=== PATIENT | male | born 1930 | race Caucasian/White ===

== ENCOUNTER 2016-08-16 20:37 | Emergency (ER) | payer MEDICARE ==
[2016-08-16 20:37] VITALS: BMI 26.4
[2016-08-16 20:48] VITALS: RESP 18
--- NOTE | 2016-08-16 21:44 | C.PDOC ---
History Of Present Illness Patient was brought to the ED by EMS with complaints of epistaxis that has been on and off with a couple of episodes a month. The patient states he has been cauterized with the last being a week and a half ago. Patient notes having history of a stroke 20 years ago but denies any head trauma or other complaints at this time. Time Seen by Provider: 08/16/16 21:42 Chief Complaint (Nursing): ENT Problem History Per: Patient History/Exam Limitations: None Onset/Duration Of Symptoms: Persistent Current Symptoms Are (Timing): Still Present Symptoms Have Been: Episodic Severity: Mild Pain Scale Rating Of: 3 Anticoagulant/Antiplatlet Use?: No Recent Aspirin Use: Unknown Past Medical History Reviewed: Historical Data, Nursing Documentation, Vital Signs Vital Signs: Last Vital Signs Temp 98.7 F 08/16/16 22:56 Pulse 72 08/16/16 22:56 Resp 18 08/16/16 22:56 BP 176/73 H 08/16/16 22:56 Pulse Ox 99 08/16/16 22:56 - Medical History PMH: Arthritis, Asthma, Back Problems, COPD, CVA, Dementia, Diabetes, Diverticulitis, HTN, Hypercholesterolemia, Kidney Stones (05-11-13), Chronic Kidney Disease, TIA Surgical History: Cholecystectomy - [facility] Procedures REMOV URETERAL DRAIN (06/13/13) URETERAL CATHETERIZATION (05/11/13) Family History: States: Unknown Family Hx, Diabetes - Social History Hx Tobacco Use: No (Former smoker) Hx Alcohol Use: No Hx Substance Use: No - Immunization History Hx Tetanus Toxoid Vaccination: Yes Hx Influenza Vaccination: Yes Hx Pneumococcal Vaccination: Yes Review Of Systems Constitutional: Negative for: Fever, Chills ENT: Positive for: Other (epistaxis). Negative for: Nose Pain Cardiovascular: Negative for: Chest Pain, Palpitations Respiratory: Negative for: Cough, Shortness of Breath Neurological: Negative for: Headache Psych: Positive for: Anxiety Physical Exam - Physical Exam Appears: Non-toxic, No Acute Distress Skin: Warm, Dry Head: Normacephalic Nose: Epistaxis (Minimal bleeding left nare, clotting blood ), No Tenderness, No Septal Hematoma Oral Mucosa: Moist Neck: Supple Neurological/Psych: Oriented x3, Normal Speech, Normal Cognition, Other (Right sided weakness from previous stroke 20 years prior ) Gait: Steady ED Course And Treatment - Laboratory Results Result Diagrams: 08/16/16 22:02 08/16/16 22:02 O2 Sat by Pulse Oximetry: 96 (room air ) Pulse Ox Interpretation: Normal Progress Note: Left nare began to bleed again, 5.5 packing rapid rhino was used. Disposition Counseled Patient/Family Regarding: Studies Performed, Diagnosis, Need For Followup - Disposition Referrals: Shyam Burgess MD [Staff Provider] - Disposition: HOME/ ROUTINE Disposition Time: 21:44 Condition: FAIR Instructions: Nosebleed (ED) - Clinical Impression Clinical Impression: Arterial epistaxis - Scribe Statement The provider has reviewed the documentation as recorded by the Scribe Jasmin Estrada All medical record entries made by the Scribe were at my direction and personally dictated by me. I have reviewed the chart and agree that the record accurately reflects my personal performance of the history, physical exam, medical decision making, and the department course for this patient. I have also personally directed, reviewed, and agree with the discharge instructions and disposition.
[2016-08-16 22:05] LABS: BASO # 0.1 K/uL (0.0-0.2); BASO % 1.2 % (0.0-2.0); EOS # 0.2 K/uL (0.0-0.7); EOS % 4.4 % (0.0-4.0); HEMATOCRIT 37.7 % (35.0-51.0); LYMPH # 1.7 K/uL (1.0-4.3); LYMPH % 37.4 % (20.0-40.0); MEAN CORPUSCULAR HEMOGLOBIN 28.4 pg (27.0-31.0); MEAN CORPUSCULAR HGB CONC 32.8 g/dL (33.0-37.0); MEAN PLATELET VOLUME 6.8 fL (7.2-11.7); MONO # 0.3 K/uL (0.0-0.8); MONO % 7.5 % (0.0-10.0); RED CELL DISTRIBUTION WIDTH 17.8 % (11.5-14.5); WHITE BLOOD COUNT 4.4 K/uL (4.8-10.8)
[2016-08-16 22:08] LABS: MEAN CELL VOLUME 86.3 fL (80.0-94.0)
[2016-08-16 22:15] LABS: POTASSIUM 4.2 mmol/L (3.6-5.2)
[2016-08-16 22:17] LABS: ALB/GLOB RATIO 1.2 (1.0-2.1); BILIRUBIN,TOTAL 0.5 mg/dL (0.2-1.3); TOTAL PROTEIN 7.6 g/dL (6.3-8.3)
[2016-08-16 22:18] LABS: CALCIUM 9.7 mg/dl (8.6-10.4)
[2016-08-16 22:57] VITALS: BP 176/73; PULSE 72; TEMP 98.7
[2016-08-16 23:00] VITALS: O2SAT 96
== END 2016-08-16 23:10 | disposition home or self-care (01) ==
LOC: C.ER 20:37
DX: R04.0 Epistaxis (principal); I12.9 Hypertensive chronic kidney disease with stage 1 through stage 4 chronic kidney disease, or unspecified chronic kidney disease; N18.9 Chronic kidney disease, unspecified; Z86.73 Personal history of transient ischemic attack (TIA), and cerebral infarction without residual deficits; Z87.891 Personal history of nicotine dependence

== ENCOUNTER 2018-01-15 08:39 | Inpatient (IN) | payer MEDICARE ==
[2018-01-15 08:39] VITALS: BMI 26.4
[2018-01-15] MEDS ORDERED: Sodium Chloride 0.9% 1,000 ML ONE (09:50)
[2018-01-15 09:53] LABS: BASO # 0.1 K/uL (0.0-0.2); BASO % 1.6 % (0.0-2.0); EOS # 0.3 K/uL (0.0-0.7); EOS % 6.2 % (0.0-4.0); HEMOGLOBIN 12.2 g/dL (12.0-18.0); LYMPH # 0.9 K/uL (1.0-4.3); LYMPH % 20.3 % (20.0-40.0); MEAN CORPUSCULAR HEMOGLOBIN 30.7 pg (27.0-31.0); MEAN CORPUSCULAR HGB CONC 33.8 g/dL (33.0-37.0); MEAN PLATELET VOLUME 7.4 fL (7.2-11.7); MONO # 0.3 K/uL (0.0-0.8); MONO % 7.9 % (0.0-10.0); NEUT # 2.7 K/uL (1.8-7.0); RBC 3.96 Mil/uL (4.40-5.90); RED CELL DISTRIBUTION WIDTH 14.1 % (11.5-14.5); WHITE BLOOD COUNT 4.2 K/uL (4.8-10.8)
[2018-01-15 09:56] LABS: MEAN CELL VOLUME 91.1 fL (80.0-94.0)
[2018-01-15 10:01] LABS: ALB/GLOB RATIO 1.4 (1.0-2.1); ALBUMIN 4.2 g/dL (3.5-5.0); ALT/SGPT 19 U/L (21-72); AST/SGOT 24 U/L (17-59); BLOOD UREA NITROGEN 25 mg/dL (9-20); CALCIUM 9.9 mg/dl (8.6-10.4); GFR NON-AFRICAN AMERICAN 38; HDL CHOLESTEROL 68 mg/dL (30-70); INR 1.1; PROTHROMBIN TIME 12.1 SECONDS (9.7-12.2)
[2018-01-15 10:12] LABS: LDL CHOLESTEROL 69 mg/dL (0-129)
[2018-01-15] MEDS: Sodium Chloride 0.9% 1,000 ML IV SCH ×2 (10:20→20:41)
--- NOTE | 2018-01-15 10:41 | CT ---
Date of service: 01/15/2018 PROCEDURE: CT HEAD WITHOUT CONTRAST. HISTORY: L>R leg weak, h/o CVA w R arm weak COMPARISON: None available. TECHNIQUE: Axial computed tomography images were obtained through the head/brain without intravenous contrast. Radiation dose: Total exam DLP = 1069.66 mGy-cm. This CT exam was performed using one or more of the following dose reduction techniques: Automated exposure control, adjustment of the mA and/or kV according to patient size, and/or use of iterative reconstruction technique. FINDINGS: HEMORRHAGE: No acute parenchymal, subarachnoid or extra-axial hemorrhage. BRAIN: Re demonstrated are chronic chronic infarct changes seen in the left frontal subcortical and deeper white matter extending inferiorly along the left lateral basal ganglia.. There is another slightly less discrete subcortical infarct right posterior frontoparietal region.. Mild chronic periventricular white matter ischemic changes are also seen extending peripherally into the deep white matter both cerebral hemispheres. Multiple chronic appearing bilateral basal nuclei lacunar type infarcts are also present. Questionable few tiny chronic appearing brainstem lacunar is. Note that the possibility of a small hyperacute infarct cannot be excluded if there is any concern, consider followup MRI with diffusion imaging provided that there are no contraindications to MRI in this patient. Moderate to fairly significant generalized volume loss. VENTRICLES: No obstructive hydrocephalus. CALVARIUM: No acute calvarial fractures. PARANASAL SINUSES: Opacification multiple left posterior ethmoid air cells and left chamber of the sphenoid sinus with associated surrounding bony sclerosis. MASTOID AIR CELLS: Unremarkable as visualized. No inflammatory changes. OTHER FINDINGS: Changes of bilateral cataract surgery again noted. IMPRESSION: No evidence of acute intracranial hemorrhage. There are chronic white matter ischemic changes with more discrete infarcts in the left frontal/left lateral basal ganglia as well as right posterior frontoparietal. In addition, numerous smaller infarcts both basal nuclei with possible few tiny chronic brainstem lacunar infarcts. Possibility of a small hyperacute infarct cannot be excluded. Moderate to fairly significant generalized volume loss.
--- NOTE | 2018-01-15 10:42 | C.PDOC ---
History Of Present Illness 87 years old male with PMHx of CVA, diabetes, HTN, COPD, Hypercholesterolemia, TIA, and chronic Kidney Disease, is brought in to ED by BLS for complaints of difficulty walking that began 5 days ago. Patient has associated symptoms of right arm and right sided weakness. Patient was home with his family when symptoms began. As per family, patient usually walks around the house with himself, but the past 3 days he has not been able to walk. Time Seen by Provider: 01/15/18 09:19 Chief Complaint (Nursing): Weakness/Neurological Deficit History Per: Patient, EMS, Family History/Exam Limitations: no limitations Onset/Duration Of Symptoms: Hrs Current Symptoms Are (Timing): Still Present Activity At Onset Of Symptoms: Sitting, Standing, Walking Associated Symptoms Preceding Syncopal Episode: No Predromal Symptoms (Sudden Onset) Seizure Or Post-ictal Symptoms: None Fall Associated With With Symptoms: No Recent travel outside of the [place]: No - Symptoms Of CVA Associated Symptoms: Decreased Ability To Walk Character Of Deficits: Right: Weakness Recent Aspirin Use: Unknown Current Coumadin Use?: Unknown Recent Head Trauma: No Past Medical History Reviewed: Historical Data, Nursing Documentation, Vital Signs Vital Signs: Last Vital Signs Temp 96.7 F L 01/15/18 09:04 Pulse 74 01/15/18 09:04 Resp 18 01/15/18 09:04 BP 161/78 H 01/15/18 09:04 Pulse Ox 97 01/15/18 09:04 - Medical History PMH: Arthritis, Asthma, Back Problems, COPD, CVA, Dementia, Diabetes, Diverticulitis, HTN, Hypercholesterolemia, Kidney Stones (05-11-13), Chronic Kidney Disease, TIA Surgical History: Cholecystectomy - [facility] Procedures REMOV URETERAL DRAIN (06/13/13) URETERAL CATHETERIZATION (05/11/13) Family History: States: Unknown Family Hx, Diabetes - Social History Hx Tobacco Use: No (Former smoker) Hx Alcohol Use: No Hx Substance Use: No - Immunization History Hx Tetanus Toxoid Vaccination: Yes Hx Influenza Vaccination: Yes Hx Pneumococcal Vaccination: Yes Review Of Systems Constitutional: Positive for: Other (Difficulty walking ). Negative for: Fever, Chills Gastrointestinal: Negative for: Nausea, Vomiting, Diarrhea Skin: Negative for: Rash Neurological: Positive for: Weakness (Right sided ). Negative for: Numbness Physical Exam - Physical Exam Appears: Non-toxic, In Acute Distress Skin: Normal Color, Warm, Dry, No Rash Head: Atraumatic, Normacephalic Eye(s): bilateral: Normal Inspection, PERRL, EOMI Oral Mucosa: Moist Neck: Normal ROM, Supple Chest: Symmetrical, No Tenderness Cardiovascular: Rhythm Regular Respiratory: Normal Breath Sounds, No Rales, No Rhonchi, No Wheezing Gastrointestinal/Abdominal: Normal Exam, Bowel Sounds (Active ), Soft, No Tenderness, No Distention, No Guarding, No Rebound Back: Normal Inspection, No CVA Tenderness Extremity: Other (Right arm 1/5 strength baseline. Bilateral lower extremities 5/5 strength. ) Extremity: Bilateral: Normal Color And Temperature Pulses: Left Radial: Normal, Right Radial: Normal Neurological/Psych: Oriented x3, Normal Speech, Normal Motor, Normal Sensation, Normal Reflexes ED Course And Treatment - Laboratory Results Result Diagrams: 01/15/18 09:45 01/15/18 09:45 Lab Interpretation: Abnormal (+ elev glu) ECG: Interpreted By Me ECG Rhythm: Sinus Rhythm ECG Interpretation: Normal Rate From EC O2 Sat by Pulse Oximetry: 97 (RA) Pulse Ox Interpretation: Normal - Radiology CXR: Interpreted by Me CXR Interpretation: Yes: No Acute Disease - Other Rad CXR X-Ray: Viewed By Me, Read By Radiologist Interpretation: IMPRESSION: There is persistent but mild increased elevation right hemidiaphragm possibly due to eventration.. Poor inspiration with low lung volumes, crowded bronchovascular markings and mild bibasilar atelectasis - CT Scan/US Head CT Other Rad Studies (CT/US): Read By Radiologist CT/US Interpretation: IMPRESSION: No evidence of acute intracranial hemorrhage. There are chronic white matter ischemic changes with more discrete infarcts in the left frontal/left lateral basal ganglia as well as right posterior frontoparietal. In addition, numerous smaller infarcts both basal nuclei with possible few tiny chronic brainstem lacunar infarcts. Possibility of a small hyperacute infarct cannot be excluded. Moderate to fairly significant generalized volume loss. Reevaluation Time: 11:09 Reassessment Condition: Unchanged - Physician Consult Information Outcome Of Conversation: 1100: d/w Dr. Bach- Medicine, prior adm 05/05, ok to tele obs NIHSS Stroke Scale 2 - Date/Time Evaluation Performed Date Performed: 01/15/18 Time Performed: 09:20 When Was NIHSS Performed: Baseline - How Severe is the Stroke Level of Consciousness: 0=Alert LOC to Questions: 0=Both comments correct LOC to commands: 0=Obeys both correctly Best Gaze: 0=Normal Visual: 0=No visual loss Facial: 0=Normal Motor Arm - Left: 0=No drift Motor Arm - Right: 2=Falls before 10 sec Motor Leg - Left: 0=No drift Motor Leg - Right: 0=No drift Limb Ataxia: 0=Absent Sensory: 0=Normal Best Language: 0=No aphasia Dysarthia: 0=Normal articulation Extinction & Inattention (Neglect): 0=Normal, no object Score: 2 rTPA Inclusion/Exclusion - Refusal of Treatment Patient Refused Treatment: No - Inclusion Criteria for Altepase Patient is 18 years or Older: Yes The Clinical Diagnosis of Ischemic Stroke That is Causing a Potentially Disabling Neurological Deficit: No Time of Onset is Well Established to be Less Than 270 Minute Before Treatment Would Begin: No Risk/Benefit Discussed With Patient/Family Member Present: No - Exclusion Criteria for Altepase Uncontrolled Hypertension at Time of Treatment (Systolic BP above 185 or Diastolic BP above 110 mmHg): No Known Bleeding Diathesis Including but Not Limited to: Platelets Below 100,000/mm,PTT Above 40 sec After Heparin Use, Current Use of Oral Anitcoagulant With INR Greater Than 1.7 or PT Greater Than 15 secs: No Evidence of Major Acute Infarct With Signs Greater Than 1/3 MCA Territory: No Suspicion of Subarachnoid Hemorrhage on Pretreatment Evaluation Even if CT Head Negative For Hemorrhage: No - Warning to TPA With Conditions Condition: Stroke Serevity Too Mild, Age Greater Than 75 years Medical Decision Making Medical Decision Making: Plan: * Aspirin * Insulin * IV Fluid * Head CT * EKG * Blood Work * CXR * Urinalysis ? lethargic due to elev glu or acute on chronic CVA/dementia head ct no acute findings insulin for elev glu Disposition Doctor Will See Patient In The: Hospital Counseled Patient/Family Regarding: Studies Performed, Diagnosis - Disposition Disposition: HOSPITALIZED Disposition Time: 11:11 Condition: GOOD - Clinical Impression Clinical Impression: Gait apraxia of elderly, Uncontrolled diabetes mellitus - Scribe Statement The provider has reviewed the documentation as recorded by the Linda Bailey All medical record entries made by the Maddiibheraclio were at my direction and personally dictated by me. I have reviewed the chart and agree that the record accurately reflects my personal performance of the history, physical exam, medical decision making, and the department course for this patient. I have also personally directed, reviewed, and agree with the discharge instructions and disposition.
[2018-01-15 10:49] LABS: SQUAMOUS EPITHIAL < 1 /hpf (0-5); URINE BACTERIA RARE (<OCC); URINE BILIRUBIN NEGATIVE (NEGATIVE); URINE BLOOD NEGATIVE (NEGATIVE); URINE CLARITY Clear (Clear); URINE COLOR Yellow (YELLOW); URINE GLUCOSE (UA) 3+ mg/dL (Normal); URINE LEUKOCYTE ESTERASE NEG Leu/uL (Negative); URINE PROTEIN NEGATIVE (NEGATIVE); URINE UROBILINOGEN NORMAL mg/dL (0.2-1.0)
[2018-01-15] MEDS ORDERED: (Novolin R) Insulin Human Regular 100 units/ml vial IVP STA (11:04)
[2018-01-15] MEDS ORDERED: Aspirin 325 mg EC Tablets PO STA (11:14)
[2018-01-15] MEDS ORDERED: (Novolin R) Insulin Human Regular 100 units/ml vial ONE (11:16)
[2018-01-15] MEDS ORDERED: Aspirin 325 mg EC Tablets PO ONE (11:33)
--- NOTE | 2018-01-15 13:29 | RAD ---
Date of service: 01/15/2018 HISTORY: Code Stroke COMPARISON: No prior. FINDINGS: LUNGS: There is persistent but mild increased elevation right hemidiaphragm possibly due to eventration.. Poor inspiration with low lung volumes, crowded bronchovascular markings and mild bibasilar atelectasis PLEURA: No significant pleural effusion identified, no pneumothorax apparent. CARDIOVASCULAR: No appreciable aortic atherosclerotic calcification present. Normal cardiac size. No pulmonary vascular congestion. OSSEOUS STRUCTURES: Degenerative osteoarthritis both shoulder girdles. VISUALIZED UPPER ABDOMEN: Normal. OTHER FINDINGS: None. IMPRESSION: There is persistent but mild increased elevation right hemidiaphragm possibly due to eventration.. Poor inspiration with low lung volumes, crowded bronchovascular markings and mild bibasilar atelectasis
[2018-01-15] MEDS: (Novolog) Insulin Aspart, Recombinant 100 u/ml 10 ml vial SC SCH (21:59)
--- NOTE | 2018-01-16 01:59 | CP.PCM.HP ---
Past Patient History - Infectious Disease Hx of Infectious Diseases: None - Tetanus Immunizations Tetanus Immunization: Unknown - Past Medical History & Family History Past Medical History?: Yes - Past Social History Smoking Status: Former Smoker - CARDIAC Hx Cardiac Disorders: Yes Hx Hypercholesterolemia: Yes Hx Hypertension: Yes - PULMONARY Hx Respiratory Disorders: Yes Hx Asthma: Yes Hx Chronic Obstructive Pulmonary Disease (COPD): Yes - NEUROLOGICAL Hx Neurological Disorder: Yes HX Cerebrovascular Accident: Yes (with residual right sided weakness) Hx Dementia: Yes Hx Transient Ischemic Attacks (TIA): Yes - HEENT Hx HEENT Problems: Yes Hx Epistaxis: Yes (chronic) - RENAL Hx Chronic Kidney Disease: Yes Hx Kidney Stones: Yes (05-11-13) - ENDOCRINE/METABOLIC Hx Endocrine Disorders: Yes Hx Diabetes Mellitus Type 2: Yes - HEMATOLOGICAL/ONCOLOGICAL Hx Blood Disorders: No - INTEGUMENTARY Hx Dermatological Problems: No - MUSCULOSKELETAL/RHEUMATOLOGICAL Hx Musculoskeletal Disorders: No Hx Falls: No - GASTROINTESTINAL Hx Gastrointestinal Disorders: Yes Hx Diverticulitis: Yes - GENITOURINARY/GYNECOLOGICAL Hx Genitourinary Disorders: Yes (kidney stones) - PSYCHIATRIC Hx Psychophysiologic Disorder: No Hx Substance Use: No - SURGICAL HISTORY Hx Surgeries: Yes Hx Cholecystectomy: Yes - ANESTHESIA Hx Anesthesia: Yes Hx Anesthesia Reactions: No Hx Malignant Hyperthermia: No Meds Allergies/Adverse Reactions: Allergies Allergy/AdvReac Type Severity Reaction Status Date / Time No Known Allergies Allergy Verified 05/01/15 11:54 Results - Vital Signs Recent Vital Signs: Last Vital Signs Temp 97.7 F 01/15/18 20:30 Pulse 77 01/15/18 23:00 Resp 17 01/15/18 23:00 BP 185/86 H 01/15/18 22:01 Pulse Ox 97 01/16/18 00:00 - Labs Result Diagrams: 01/15/18 09:45 01/15/18 09:45 Labs: Laboratory Results - last 24 hr 01/15/18 01/15/18 01/15/18 09:00 09:45 09:45 WBC 4.2 L RBC 3.96 L Hgb 12.2 Hct 36.1 MCV 91.1 D MCH 30.7 MCHC 33.8 RDW 14.1 Plt Count 202 MPV 7.4 Neut % (Auto) 64.0 Lymph % (Auto) 20.3 Knox % (Auto) 7.9 Eos % (Auto) 6.2 H Baso % (Auto) 1.6 Neut # (Auto) 2.7 Lymph # (Auto) 0.9 L Knox # (Auto) 0.3 Eos # (Auto) 0.3 Baso # (Auto) 0.1 PT 12.1 INR 1.1 APTT 27 Sodium Potassium Chloride Carbon Dioxide Anion Gap BUN Creatinine Est GFR ( Amer) Est GFR (Non-Af Amer) POC Glucose (mg/dL) 387 H Random Glucose Calcium Total Bilirubin AST ALT Alkaline Phosphatase Troponin I Total Protein Albumin Globulin Albumin/Globulin Ratio Triglycerides Cholesterol LDL Cholesterol Direct HDL Cholesterol Urine Color Urine Clarity Urine pH Ur Specific [place] Urine Protein Urine Glucose (UA) Urine Ketones Urine Blood Urine Nitrate Urine Bilirubin Urine Urobilinogen Ur Leukocyte Esterase Urine WBC (Auto) Ur Squamous Epith Cells Urine Bacteria Hyaline Casts 01/15/18 01/15/18 01/15/18 09:45 10:20 12:04 WBC RBC Hgb Hct MCV MCH MCHC RDW Plt Count MPV Neut % (Auto) Lymph % (Auto) Knox % (Auto) Eos % (Auto) Baso % (Auto) Neut # (Auto) Lymph # (Auto) Knox # (Auto) Eos # (Auto) Baso # (Auto) PT INR APTT Sodium 134 Potassium 4.3 Chloride 103 Carbon Dioxide 20 L Anion Gap 16 BUN 25 H Creatinine 1.7 H Est GFR ( Amer) 47 Est GFR (Non-Af Amer) 38 POC Glucose (mg/dL) 265 H Random Glucose 394 H Calcium 9.9 Total Bilirubin 0.3 AST 24 ALT 19 L D Alkaline Phosphatase 125 Troponin I < 0.0120 Total Protein 7.2 Albumin 4.2 Globulin 2.9 Albumin/Globulin Ratio 1.4 Triglycerides 164 H D Cholesterol 147 LDL Cholesterol Direct 69 HDL Cholesterol 68 Urine Color Yellow Urine Clarity Clear Urine pH 5.0 Ur Specific [place] 1.022 Urine Protein Negative Urine Glucose (UA) 3+ H Urine Ketones Negative Urine Blood Negative Urine Nitrate Negative Urine Bilirubin Negative Urine Urobilinogen Normal Ur Leukocyte Esterase Neg Urine WBC (Auto) < 1 Ur Squamous Epith Cells < 1 Urine Bacteria Rare Hyaline Casts 3-5 H 01/15/18 01/15/18 18:57 21:57 WBC RBC Hgb Hct MCV MCH MCHC RDW Plt Count MPV Neut % (Auto) Lymph % (Auto) Knox % (Auto) Eos % (Auto) Baso % (Auto) Neut # (Auto) Lymph # (Auto) Knox # (Auto) Eos # (Auto) Baso # (Auto) PT INR APTT Sodium Potassium Chloride Carbon Dioxide Anion Gap BUN Creatinine Est GFR ( Amer) Est GFR (Non-Af Amer) POC Glucose (mg/dL) 275 H 255 H Random Glucose Calcium Total Bilirubin AST ALT Alkaline Phosphatase Troponin I Total Protein Albumin Globulin Albumin/Globulin Ratio Triglycerides Cholesterol LDL Cholesterol Direct HDL Cholesterol Urine Color Urine Clarity Urine pH Ur Specific [place] Urine Protein Urine Glucose (UA) Urine Ketones Urine Blood Urine Nitrate Urine Bilirubin Urine Urobilinogen Ur Leukocyte Esterase Urine WBC (Auto) Ur Squamous Epith Cells Urine Bacteria Hyaline Casts
[2018-01-16] MEDS: (Novolog) Insulin Aspart, Recombinant 100 u/ml 10 ml vial SC SCH ×4 (08:24→22:05)
[2018-01-16] MEDS: Vitamin B Complex/Vitamin C Tab PO SCH (09:34)
[2018-01-16] MEDS: Enoxaparin 30 mg Syringe SC SCH (09:35)
[2018-01-16] MEDS: Pantoprazole 20 mg EC Tab PO SCH (09:36)
[2018-01-16] MEDS ORDERED: Pantoprazole 40 mg EC Tab PO SCH (10:00)
[2018-01-16] MEDS ORDERED: Home Med 1 UNIT (Bicalutamide [Casodex] 50 MG) PO SCH (10:00)
[2018-01-16] MEDS ORDERED: (Lantus) Insulin Glargine, Recombinant SC SCH (10:00)
--- NOTE | 2018-01-16 12:46 | HP ---
CHIEF COMPLAINT: Right-sided weakness for two weeks. HISTORY OF PRESENT ILLNESS: This is an 87-year-old male well known to me with history of prior CVA, further detail not obtained; diabetes; hypertension; hyperlipidemia; COPD; CKD, not on hemodialysis. The patient for the last one to two weeks has been having difficulty walking. According to him, he feels that his right arm and leg are weak. The patient is able to ambulate with some assistance from family members and assistance from walker and wheelchair and for the last unknown number of days he has not been able to walk on his own. The patient right now is coherent. He is explaining all the details and according to patient he has right-sided weakness from a prior stroke in the past, but now he is not able to walk. He feels as if he is more weak on the right side. He denies any fever, chills. He denies any shortness of breath. No chest pain. He denies any history of palpitations. He denies any weakness or dizziness. He denies any history of polyuria, polydipsia, or polyphagia. He denies any history of hematuria or pyuria. He denies any sneezing, itchy eyes, itchy nose. PAST MEDICAL HISTORY: Positive for hypertension; hyperlipidemia; CVA, multiple; diabetes, on insulin; hyperlipidemia; nephrolithiasis; CKD, not on hemodialysis; cholecystectomy. SOCIAL HISTORY: Nonsmoker, non-Et[employer] user. CURRENT MEDICATIONS: He is on Remeron, Norvasc, Lantus, multivitamin, Flomax, Zoloft, Actos, Singulair, gabapentin, TriCor, vitamin D, Casodex, aspirin, Nexium and Lipitor. PHYSICAL EXAMINATION: GENERAL: An elderly male, right now he is not in distress, he is in good mood and his right side is weak. VITAL SIGNS: Blood pressure 185/86, pulse 74, respiratory rate 19, and temperature 98. SKIN: Senile turgor. No bruises. No purpura. HEENT: Atraumatic and normocephalic. Negative pallor. Negative jaundice. Extraocular movements are intact. NECK: Supple. Denies neck pain. No JVD. CHEST: Chest wall bilateral symmetrical expansion. No tenderness. No masses. LUNGS: Bilaterally clear. No rales. No rhonchi. CARDIOVASCULAR SYSTEM: PMI is not localized. S1 and S2, regular with S4 positive. ABDOMEN: Soft, nontender. Bowel sounds are positive. RECTAL: Enlarged prostate. No bleeding. EXTREMITIES: No clubbing, cyanosis, or edema. Right side power is 3/5 in the right arm, in the right leg is 4/5. Deep tendon reflexes are ____, +3 on the right biceps, brachioradialis and right knee. Unable to check his gait. ASSESSMENT: 1. Right-sided weakness, ____ rule out cerebrovascular accident. 2. Hypertension. 3. Chronic kidney disease. 4. Type 2 diabetes, on insulin. PLAN: Neuro check, fall and seizure precautions, neurology evaluation, permissive hypertension and monitor patient. Cliff Bach MD
--- NOTE | 2018-01-16 15:31 | MRI ---
Date of service: 01/16/2018 PROCEDURE: MRI BRAIN WITHOUT CONTRAST HISTORY: cva COMPARISON: Comparison is made to the previous study dated 04/24/2015 TECHNIQUE: Multiplanar, multisequence MR images of the brain were obtained without intravenous contrast enhancement. FINDINGS: HEMORRHAGE: No evidence of new intracranial hemorrhage. Linear shaped blooming susceptibility artifact again noted at the left internal capsule suggestive of old hemorrhagic infarction. DWI: No evidence of a new diffusion restriction in the brain to suggest acute or subacute infarction. BRAIN PARENCHYMA: Again noted is encephalomalacia and gliosis at the left external capsule and sub insular region suggestive of old infarct. Moderate volume loss and chronic microvascular white matter ischemic changes are again noted. VENTRICLES: Unremarkable. No hydrocephalus. CRANIUM: Unremarkable. ORBITS: Grossly unremarkable. PARANASAL SINUSES/MASTOIDS: Mild sinuses mucosal disease. VASCULAR SYSTEM: Skull base flow voids intact. OTHER FINDINGS: None. IMPRESSION: Suboptimal study degraded by motion artifact. No evidence of acute or subacute infarct. No evidence of new intracranial hemorrhage. No significant interval changes noted since the previous exam.
--- NOTE | 2018-01-16 16:11 | CARD ---
APPROVED REPORT Date of service: 01/16/2018 EXAM: Two-dimensional and M-mode echocardiogram with Doppler and color Doppler. Other Information Quality : GoodRhythm : RISK FACTORS Hypertension Hyperlipidemia Diabetes 2D DIMENSIONS IVSd1.1 (0.7-1.1cm)LVDd4.3 (3.9-5.9cm) PWd1.0 (0.7-1.1cm)LA Rqejuy03 (18-58mL) LVDs2.1 (2.5-4.0cm)FS (%) 50.2 % LVEF (%)81.8 (>50%)LVEF (Mckee's)77.89 % IVC0.00 cm M-Mode DIMENSIONS RVDd1.64 (2.1-3.2cm)Left Atrium (MM)3.73 (2.5-4.0cm) IVSd0.79 (0.7-1.1cm)Aortic Root3.29 (2.2-3.7cm) LVDd4.98 (4.0-5.6cm)Aortic Cusp Exc.1.89 (1.5-2.0cm) PWd0.82 (0.7-1.1cm)FS (%) 46 % LVDs2.70 (2.0-3.8cm)LVEF (%)77 (>50%) Aortic Valve AI P 1/2 [id number] Mitral Valve MV E Youylepv62.5cm/sMV A Fxewpvdd034.7cm/sE/A ratio0.6 TDI Lateral E' Peak V6.42cm/sMedial E' Peak V5.32cm/sE/Lateral E'11.1 E/Medial E'13.4 Tricuspid Valve TR Peak Wygzpjgr565sp/sTR Peak Gr.[id number] LEFT VENTRICLE The left ventricle is normal size. There is borderline to mild concentric left ventricular hypertrophy. The left ventricular function is normal. The left ventricular ejection fraction is within the normal range. There is normal LV segmental wall motion. Transmitral Doppler flow pattern is Grade I-abnormal relaxation pattern. RIGHT VENTRICLE The right ventricle is normal size. There is normal right ventricular wall thickness. The right ventricular systolic function is normal. ATRIA The left atrium size is normal. The right atrium size is normal. AORTIC VALVE The aortic valve is mildly thickened. There is mild aortic regurgitation. There is no aortic valvular stenosis. MITRAL VALVE The mitral valve is normal in structure. There is no mitral valve stenosis. There is no mitral valve regurgitation noted. TRICUSPID VALVE The tricuspid valve is normal in structure. There is trace tricuspid regurgitation. PULMONIC VALVE The pulmonary valve is normal in structure. There is mild pulmonic valvular regurgitation. GREAT VESSELS The aortic root is normal in size. The IVC is normal in size and collapses >50% with inspiration. <Conclusion> There is borderline to mild concentric left ventricular hypertrophy. The left ventricular function is normal. The left ventricular ejection fraction is within the normal range. There is normal LV segmental wall motion. Transmitral Doppler flow pattern is Grade I-abnormal relaxation pattern. There is mild aortic regurgitation.
--- NOTE | 2018-01-16 17:14 | CARD ---
APPROVED REPORT Date of service: 01/15/2018 EKG Measurement Heart [id number] <Conclusion> Normal sinus rhythm Left axis deviation Abnormal ECG
--- NOTE | 2018-01-16 21:52 | CP.PCM.PN ---
Subjective - Subjective Subjective: dictated Objective - Vital Signs/Intake and Output Vital Signs (last 24 hours): Temp Pulse Resp BP Pulse Ox 98.9 F 78 16 173/86 H 97 01/16/18 16:00 01/16/18 18:00 01/16/18 16:00 01/16/18 16:00 01/16/18 16:00 Intake and Output: 01/16/18 01/17/18 18:59 06:59 Intake Total 450 200 Output Total 950 900 Balance -500 -700 - Medications Medications: Current Medications Acetaminophen (Tylenol 325mg Tab) 650 mg PO Q6 PRN PRN Reason: Headache Amlodipine Besylate (Norvasc) 5 mg PO DAILY [facility] Last Admin: 01/16/18 09:35 Dose: 5 mg Aspirin (Aspirin) 325 mg PO DAILY [facility] Last Admin: 01/16/18 13:01 Dose: 325 mg Enoxaparin Sodium (Lovenox) 30 mg SC DAILY [facility] Last Admin: 01/16/18 09:35 Dose: 30 mg Fenofibrate (Tricor) 48 mg PO DAILY [facility] Last Admin: 01/16/18 09:36 Dose: 48 mg Gabapentin (Neurontin) 300 mg PO DAILY [facility] Last Admin: 01/16/18 09:35 Dose: 300 mg Insulin Aspart (Novolog) 0 unit SC [facility]; Protocol Last Admin: 01/16/18 16:33 Dose: 5 unit Insulin Glargine (Lantus) 34 unit SC DAILY [facility] Mirtazapine (Remeron) 15 mg PO DAILY [facility] Last Admin: 01/16/18 09:36 Dose: 15 mg Montelukast Sodium (Singulair) 10 mg PO HS [facility] Last Admin: 01/16/18 21:14 Dose: 10 mg Pantoprazole Sodium (Protonix Ec Tab) 20 mg PO DAILY [facility] Last Admin: 01/16/18 09:36 Dose: 20 mg Quetiapine Fumarate (Seroquel) 25 mg PO HS [facility] Rosuvastatin Calcium (Crestor) 10 mg PO HS [facility] Last Admin: 01/16/18 21:15 Dose: 10 mg Sertraline HCl (Zoloft) 100 mg PO DAILY [facility] Last Admin: 01/16/18 09:36 Dose: 100 mg Tamsulosin HCl (Flomax) 0.4 mg PO DAILY [facility] Last Admin: 01/16/18 09:34 Dose: 0.4 mg Vitamin B Complex/Vitamin C (Berocca) 1 tab PO DAILY [facility] Last Admin: 01/16/18 09:34 Dose: 1 tab - Labs Labs: 01/15/18 09:45 01/15/18 09:45 PT 12.1 SECONDS (9.7-12.2) 01/15/18 09:45 INR 1.1 01/15/18 09:45 APTT 27 SECONDS (21-34) 01/15/18 09:45
--- NOTE | 2018-01-17 07:14 | CON ---
DATE: 01/16/2018 HISTORY OF PRESENT ILLNESS: This is an 87-year-old male with past medical history of diabetes, hypertension, hyperlipidemia, COPD, came with difficulty walking, and the patient has been feeling right leg weakness for the last one week, and the patient was , and I was called to evaluate the patient for right-sided weakness. PAST MEDICAL HISTORY: Hypertension, CVA, diabetes, , and chronic kidney disease. SOCIAL HISTORY: Does not smoke. Does not drink. CURRENT MEDICATIONS: Flomax, Zoloft, , gabapentin, and . PHYSICAL EXAMINATION: NEUROLOGIC: The patient appeared awake, but confused and follows simple commands. No facial asymmetry. No left right upper extremity 3/5, right lower extremity 4/5. right-sided weakness. multiple medical problems . The patient has a history of dementia and is little bit more confused. He is on Seroquel 25 mg. Continue physical therapy. German Hays MD
[2018-01-17] MEDS: (Novolog) Insulin Aspart, Recombinant 100 u/ml 10 ml vial SC SCH ×4 (07:56→22:07)
--- NOTE | 2018-01-17 08:57 | CP.PCM.PCO ---
Assessment/Plan - Assessment and Plan (Free Text) Assessment: NEURO COMMUNICATION NOTE: PT IS HAS RESIDUAL MILDLY SPASTIC RIGHT SIDE WEAKNESS FROM PREVIOUS CVA. MRI BRAIN SHOWED NO NEW ACUTE INFARCT. THERE IS ELEVATED BUN/CR IN ADDTION TO HYPERGLYCEMIC ACCELERATION CAUSING METABOLIC ENCEPHALOPATHY UPON VASCULAR DEMENTIA, HENCE MAKING HIS RESIDUAL WEAKNESS WORSE. - MONITOR ELECTROLYTES AND CORRECT ACCORDINGLY. -HYDRATION IV -IV MULTI VITAMINS -B12 INJECTION - C/W ASA AND STATIN FOR STROKE PREVENTION. -SEROQUEL 25 MG PO QHS FOR AGITATION. -KEEP BS BTW 140-180. -PT/OT THANK YOU SUSI MYRICK
--- NOTE | 2018-01-17 09:06 | PN ---
DATE: 01/17/2018 SUBJECTIVE: The patient, Mr. Cooper, is feeling better. He is afebrile. No shortness of breath. No chest pain. He does not have any stroke on MRI. His right side is weak but he needs physiotherapy. He agrees for subacute rehab. No chest pain. PHYSICAL EXAMINATION: VITAL SIGNS: Blood pressure 168/94, pulse 71, respiratory rate 19, temperature 98.2. LUNGS: Clear. CARDIOVASCULAR SYSTEM: S1, S2 plus. S4 positive. ABDOMEN: Soft. EXTREMITIES: Right side power is 4/5. ASSESSMENT: 1. Generalized obesity. Difficulty walking. Right-sided weakness. 2. Cerebral atherosclerosis, negative stroke. 3. Hypertension. 4. Type 2 diabetes. PLAN: Physical therapy rehab. Monitor patient. Cliff Bach MD
[2018-01-17] MEDS: Vitamin B Complex/Vitamin C Tab PO SCH (09:07)
[2018-01-17] MEDS: Enoxaparin 30 mg Syringe SC SCH (09:10)
[2018-01-17] MEDS: (Lantus) Insulin Glargine, Recombinant SC SCH (09:15)
[2018-01-17] MEDS: Pantoprazole 20 mg EC Tab PO SCH (09:16)
--- NOTE | 2018-01-17 11:45 | VASCLAB ---
Date of service: 01/16/2018 PROCEDURE: Carotid Duplex Exam. HISTORY: CVA, Right sided weakness. COMPARISON: None available. TECHNIQUE: Grayscale and duplex Doppler evaluation of the cervical carotid and vertebral arteries were performed. The common carotid, carotid bifurcations and cervical Internal Carotid Artery (ICA) and proximal External Carotid Artery (ECA) were evaluated. The vertebral arteries were evaluated for gross patency and flow direction. Report prepared by Roni Alva, BS, RVT FINDINGS: RIGHT CAROTID ARTERIES: 1. Common Carotid Artery: No significant focal plaque formation of the right common carotid artery. Maximum Peak Systolic velocity: 86 cm/sec: End-diastolic velocity 13 cm/sec. 2. Carotid Bifurcation: Calcific plaque formation. Maximum Peak Systolic velocity: 75 cm/sec: End-diastolic velocity 10 cm/sec. 3. Internal Carotid Artery: Plaque description: 3.1. Proximal Segment: Peak systolic velocity 70 cm/sec: End-diastolic velocity 11 cm/sec - % stenosis 0-15% 3.2. Middle Segment: Peak systolic velocity 38 cm/sec: End-diastolic velocity 8 cm/sec - % stenosis 0-15% 3.3. Distal Segment: Peak systolic velocity 59 cm/sec: End-diastolic velocity 16 cm/sec - % stenosis 0-15% 4. External Carotid Artery: No significant focal plaque formation. Peak systolic velocity 74 cm/sec 5. ICA/CCA Ratio: 0.9 LEFT CAROTID ARTERIES: 1. Common Carotid Artery: No significant focal plaque formation of the left common carotid artery. Maximum Peak Systolic velocity: 95 cm/sec: End-diastolic velocity 9 cm/sec. 2. Carotid Bifurcation: plaque formation. Maximum Peak Systolic velocity: 58 cm/sec: End-diastolic velocity 0 cm/sec. 3. Internal Carotid Artery: Plaque description: 3.1. Proximal Segment: Peak systolic velocity 90 cm/sec: End-diastolic velocity 18 cm/sec - % stenosis 0-15% 3.2. Middle Segment: Peak systolic velocity 71 cm/sec: End-diastolic velocity 14 cm/sec - % stenosis 0-15% 3.3. Distal Segment: Peak systolic velocity 41 cm/sec: End-diastolic velocity 10 cm/sec - % stenosis 0-15% 4. External Carotid Artery: No significant focal plaque formation. Peak systolic velocity 108 cm/sec 5. ICA/CCA Ratio: 1.0 VERTEBRAL ARTERIES: 1. Right Vertebral Artery: The right vertebral artery flow direction is antegrade. 2. Left Vertebral Artery: The left vertebral artery flow direction is antegrade. OTHER FINDINGS: 1. Right Brachial Blood pressure: 178 mmHg. 2. Left Brachial Blood pressure: mmHg. 3. No atherosclerotic calcification present IMPRESSION: RIGHT: Duplex scan does not suggest hemodynamically significant stenosis of the right extracranial carotid arteries. LEFT: Duplex scan does not suggest hemodynamically significant stenosis of the left extracranial carotid arteries.
--- NOTE | 2018-01-17 22:32 | CP.PCM.PN ---
Subjective - Subjective Subjective: dictated Objective - Vital Signs/Intake and Output Vital Signs (last 24 hours): Temp Pulse Resp BP Pulse Ox 98.8 F 74 20 159/75 H 96 01/17/18 16:00 01/17/18 16:00 01/17/18 16:00 01/17/18 16:00 01/17/18 16:00 Intake and Output: 01/17/18 01/18/18 18:59 06:59 Intake Total 600 Output Total 600 Balance 0 - Medications Medications: Current Medications Acetaminophen (Tylenol 325mg Tab) 650 mg PO Q6 PRN PRN Reason: Headache Amlodipine Besylate (Norvasc) 10 mg PO DAILY [facility] Last Admin: 01/17/18 09:09 Dose: 10 mg Aspirin (Aspirin) 325 mg PO DAILY [facility] Last Admin: 01/17/18 09:08 Dose: 325 mg Enoxaparin Sodium (Lovenox) 30 mg SC DAILY [facility] Last Admin: 01/17/18 09:10 Dose: 30 mg Fenofibrate (Tricor) 48 mg PO DAILY [facility] Last Admin: 01/17/18 09:08 Dose: 48 mg Gabapentin (Neurontin) 300 mg PO DAILY [facility] Last Admin: 01/17/18 09:08 Dose: 300 mg Insulin Aspart (Novolog) 0 unit SC [facility]; Protocol Last Admin: 01/17/18 22:07 Dose: Not Given Insulin Glargine (Lantus) 34 unit SC DAILY [facility] Last Admin: 01/17/18 09:15 Dose: 34 units Mirtazapine (Remeron) 15 mg PO DAILY [facility] Last Admin: 01/17/18 09:09 Dose: 15 mg Montelukast Sodium (Singulair) 10 mg PO [facility] Last Admin: 01/17/18 22:06 Dose: 10 mg Pantoprazole Sodium (Protonix Ec Tab) 20 mg PO DAILY [facility] Last Admin: 01/17/18 09:16 Dose: 20 mg Quetiapine Fumarate (Seroquel) 25 mg PO [facility] Last Admin: 01/16/18 22:00 Dose: 25 mg Rosuvastatin Calcium (Crestor) 10 mg PO [facility] Last Admin: 01/17/18 22:16 Dose: 10 mg Sertraline HCl (Zoloft) 100 mg PO DAILY [facility] Last Admin: 01/17/18 09:09 Dose: 100 mg Tamsulosin HCl (Flomax) 0.4 mg PO DAILY [facility] Last Admin: 01/17/18 09:08 Dose: 0.4 mg Vitamin B Complex/Vitamin C (Berocca) 1 tab PO DAILY [facility] Last Admin: 01/17/18 09:07 Dose: 1 tab - Labs Labs: 01/15/18 09:45 01/15/18 09:45 PT 12.1 SECONDS (9.7-12.2) 01/15/18 09:45 INR 1.1 01/15/18 09:45 APTT 27 SECONDS (21-34) 01/15/18 09:45
--- NOTE | 2018-01-18 03:29 | PN ---
DATE: 01/17/2018 SUBJECTIVE: Juarez Cooper is slightly confused. He is sitting in the chair, right side is weak. He is on physiotherapy. No fever. No chills. MRI is negative for stroke. No nausea, vomiting. PHYSICAL EXAMINATION: VITAL SIGNS: Blood pressure 159/75, pulse 74, respiratory rate 20, temperature 98.8. LUNGS: Clear. No rales. No rhonchi. CARDIOVASCULAR SYSTEM: S1, S2 regular. ABDOMEN: Soft and nontender. Bowel sounds are positive. CENTRAL NERVOUS SYSTEM: The patient is awake, alert. He is slightly confused, and he has right sided weakness. ASSESSMENT: 1. Right-sided weakness with cerebral atherosclerosis, disease from a previous stroke. Negative cerebrovascular accident. 2. Hypertension. 3. Type 2 diabetes, poorly controlled. 4. Chronic kidney disease. PLAN: Continue physical therapy rehab. Blood sugar control. Monitor patient. Cliff Bach MD
[2018-01-18] MEDS: (Novolog) Insulin Aspart, Recombinant 100 u/ml 10 ml vial SC SCH ×4 (07:30→21:44)
[2018-01-18] MEDS: Vitamin B Complex/Vitamin C Tab PO SCH (11:03)
[2018-01-18] MEDS: Pantoprazole 20 mg EC Tab PO SCH (11:03)
[2018-01-18] MEDS: Enoxaparin 30 mg Syringe SC SCH (11:04)
[2018-01-18] MEDS: (Lantus) Insulin Glargine, Recombinant SC SCH (11:05)
[2018-01-18 13:43] LABS: EOS # 0.2 K/uL (0.0-0.7); EOS % 5.7 % (0.0-4.0); HEMOGLOBIN 13.8 g/dL (12.0-18.0); LYMPH # 1.2 K/uL (1.0-4.3); LYMPH % 27.5 % (20.0-40.0); MEAN CELL VOLUME 91.5 fL (80.0-94.0); MEAN CORPUSCULAR HEMOGLOBIN 30.6 pg (27.0-31.0); MEAN CORPUSCULAR HGB CONC 33.4 g/dL (33.0-37.0); MEAN PLATELET VOLUME 7.5 fL (7.2-11.7); MONO # 0.4 K/uL (0.0-0.8); MONO % 8.7 % (0.0-10.0); NEUT # 2.4 K/uL (1.8-7.0); NEUT % 57.1 % (50.0-75.0); NRBC % 0.1 % (0.0-2.0); RBC 4.51 Mil/uL (4.40-5.90); RED CELL DISTRIBUTION WIDTH 14.4 % (11.5-14.5); WHITE BLOOD COUNT 4.2 K/uL (4.8-10.8)
[2018-01-18 13:57] LABS: CALCIUM 9.7 mg/dl (8.6-10.4)
[2018-01-18 15:25] VITALS: RESP 20
--- NOTE | 2018-01-19 00:51 | CP.PCM.PN ---
Subjective - Date & Time of Evaluation Date of Evaluation: 01/18/18 - Subjective Subjective: dcitated Objective - Vital Signs/Intake and Output Vital Signs (last 24 hours): Temp Pulse Resp BP Pulse Ox 98.4 F 74 20 145/78 74 L 01/19/18 00:00 01/19/18 00:00 01/19/18 00:00 01/19/18 00:00 01/19/18 00:00 Intake and Output: 01/18/18 01/19/18 18:59 06:59 Intake Total 360 400 Balance 360 400 - Medications Medications: Current Medications Acetaminophen (Tylenol 325mg Tab) 650 mg PO Q6 PRN PRN Reason: Headache Amlodipine Besylate (Norvasc) 10 mg PO DAILY [facility] Last Admin: 01/18/18 11:03 Dose: 10 mg Aspirin (Aspirin) 325 mg PO DAILY [facility] Last Admin: 01/18/18 11:03 Dose: 325 mg Enoxaparin Sodium (Lovenox) 30 mg SC DAILY [facility] Last Admin: 01/18/18 11:04 Dose: 30 mg Fenofibrate (Tricor) 48 mg PO DAILY [facility] Last Admin: 01/18/18 11:03 Dose: 48 mg Gabapentin (Neurontin) 300 mg PO DAILY [facility] Last Admin: 01/18/18 11:04 Dose: 300 mg Insulin Aspart (Novolog) 0 unit SC [facility]; Protocol Last Admin: 01/18/18 21:44 Dose: Not Given Insulin Glargine (Lantus) 34 unit SC DAILY [facility] Last Admin: 01/18/18 11:05 Dose: 34 units Mirtazapine (Remeron) 15 mg PO DAILY [facility] Last Admin: 01/18/18 11:03 Dose: 15 mg Montelukast Sodium (Singulair) 10 mg PO HS [facility] Last Admin: 01/18/18 21:43 Dose: 10 mg Pantoprazole Sodium (Protonix Ec Tab) 20 mg PO DAILY [facility] Last Admin: 01/18/18 11:03 Dose: 20 mg Quetiapine Fumarate (Seroquel) 25 mg PO HS [facility] Last Admin: 01/18/18 21:44 Dose: 25 mg Rosuvastatin Calcium (Crestor) 10 mg PO [facility] Last Admin: 01/18/18 22:17 Dose: 10 mg Sertraline HCl (Zoloft) 100 mg PO DAILY [facility] Last Admin: 01/18/18 11:03 Dose: 100 mg Tamsulosin HCl (Flomax) 0.4 mg PO DAILY [facility] Last Admin: 01/18/18 11:03 Dose: 0.4 mg Vitamin B Complex/Vitamin C (Berocca) 1 tab PO DAILY [facility] Last Admin: 01/18/18 11:03 Dose: 1 tab - Labs Labs: 01/18/18 13:36 01/18/18 13:36 PT 12.1 SECONDS (9.7-12.2) 01/15/18 09:45 INR 1.1 01/15/18 09:45 APTT 27 SECONDS (21-34) 01/15/18 09:45
--- NOTE | 2018-01-19 04:43 | PN ---
DATE: 01/18/2018 SUBJECTIVE: is on the bedside. The patient is feeling better. He has right leg weakness. He denies any fever, chills, rigors. No cough. No sore throat. He is on physiotherapy. PHYSICAL EXAMINATION: VITAL SIGNS: Blood pressure 145/78, pulse 74, respiratory rate 20, temperature 98.4. LUNGS: Clear. No rales. No rhonchi. CARDIOVASCULAR SYSTEM: S1 and S2 plus S4 positive. ABDOMEN: Soft. CENTRAL NERVOUS SYSTEM: Right leg weakness. ASSESSMENT: 1. Weakness of right leg. 2. Type 2 diabetes. 3. Hypertension. PLAN: Physiotherapy. Subacute rehab. . We will request subacute rehab. Cliff Bach MD
[2018-01-19] MEDS: (Novolog) Insulin Aspart, Recombinant 100 u/ml 10 ml vial SC SCH ×4 (08:30→21:52)
[2018-01-19 08:58] LABS: CALCIUM 9.9 mg/dl (8.6-10.4)
[2018-01-19] MEDS: Enoxaparin 30 mg Syringe SC SCH (10:40)
[2018-01-19] MEDS: Vitamin B Complex/Vitamin C Tab PO SCH (10:41)
[2018-01-19] MEDS: Pantoprazole 20 mg EC Tab PO SCH (10:41)
[2018-01-19] MEDS: (Lantus) Insulin Glargine, Recombinant SC SCH (10:42)
--- NOTE | 2018-01-19 23:57 | CP.PCM.PN ---
Subjective - Subjective Subjective: dictated Objective - Vital Signs/Intake and Output Vital Signs (last 24 hours): Temp Pulse Resp BP Pulse Ox 100 F H 80 20 176/81 H 95 01/19/18 16:00 01/19/18 16:00 01/19/18 16:00 01/19/18 16:00 01/19/18 16:00 Intake and Output: 01/19/18 01/20/18 18:59 06:59 Intake Total 480 300 Balance 480 300 - Medications Medications: Current Medications Acetaminophen (Tylenol 325mg Tab) 650 mg PO Q6 PRN PRN Reason: Headache Last Admin: 01/19/18 10:41 Dose: 650 mg Amlodipine Besylate (Norvasc) 10 mg PO DAILY [facility] Last Admin: 01/19/18 10:41 Dose: 10 mg Aspirin (Aspirin) 325 mg PO DAILY [facility] Last Admin: 01/19/18 10:41 Dose: 325 mg Enoxaparin Sodium (Lovenox) 30 mg SC DAILY [facility] Last Admin: 01/19/18 10:40 Dose: 30 mg Fenofibrate (Tricor) 48 mg PO DAILY [facility] Last Admin: 01/19/18 10:41 Dose: 48 mg Gabapentin (Neurontin) 300 mg PO DAILY [facility] Last Admin: 01/19/18 10:41 Dose: 300 mg Insulin Aspart (Novolog) 0 unit SC [facility]; Protocol Last Admin: 01/19/18 21:52 Dose: Not Given Insulin Glargine (Lantus) 34 unit SC DAILY [facility] Last Admin: 01/19/18 10:42 Dose: 34 units Mirtazapine (Remeron) 15 mg PO DAILY [facility] Last Admin: 01/19/18 10:41 Dose: 15 mg Montelukast Sodium (Singulair) 10 mg PO [facility] Last Admin: 01/19/18 21:50 Dose: 10 mg Pantoprazole Sodium (Protonix Ec Tab) 20 mg PO DAILY [facility] Last Admin: 01/19/18 10:41 Dose: 20 mg Quetiapine Fumarate (Seroquel) 25 mg PO HS [facility] Last Admin: 01/19/18 21:50 Dose: 25 mg Rosuvastatin Calcium (Crestor) 10 mg PO HS [facility] Last Admin: 01/19/18 21:50 Dose: 10 mg Sertraline HCl (Zoloft) 100 mg PO DAILY [facility] Last Admin: 01/19/18 10:41 Dose: 100 mg Tamsulosin HCl (Flomax) 0.4 mg PO DAILY [facility] Last Admin: 01/19/18 10:41 Dose: 0.4 mg Vitamin B Complex/Vitamin C (Berocca) 1 tab PO DAILY [facility] Last Admin: 01/19/18 10:41 Dose: 1 tab - Labs Labs: 01/18/18 13:36 01/19/18 08:29 PT 12.1 SECONDS (9.7-12.2) 01/15/18 09:45 INR 1.1 01/15/18 09:45 APTT 27 SECONDS (21-34) 01/15/18 09:45
--- NOTE | 2018-01-20 00:53 | PN ---
DATE: 01/19/2018 SUBJECTIVE: The patient is for subacute rehab. The patient feels better. No nausea or vomiting. Bowel movements are fair. PHYSICAL EXAMINATION: VITAL SIGNS: Blood pressure 164/83, pulse 79, respiratory rate 20, temperature 98. LUNGS: Clear. No rales or rhonchi. CARDIOVASCULAR SYSTEM: PMI in the fifth intercostal space. S1 and S2 are regular. ABDOMEN: Soft. ASSESSMENT: 1. Hypertension. 2. Right-sided weakness, on physiotherapy. 3. Chronic kidney disease. 4. Type 2 diabetes, poorly controlled. PLAN: Continue current medications. Monitor the patient. Cliff Bach MD
[2018-01-20] MEDS: (Novolog) Insulin Aspart, Recombinant 100 u/ml 10 ml vial SC SCH ×4 (08:29→21:36)
[2018-01-20] MEDS: Vitamin B Complex/Vitamin C Tab PO SCH (11:06)
[2018-01-20] MEDS: Pantoprazole 20 mg EC Tab PO SCH (11:07)
[2018-01-20] MEDS: Enoxaparin 30 mg Syringe SC SCH (11:38)
[2018-01-20] MEDS: (Lantus) Insulin Glargine, Recombinant SC SCH (11:39)
[2018-01-20] MEDS: Albuterol 0.083% Inhal Sol (2.5 mg/3 mL) UD INH PRN (13:15)
--- NOTE | 2018-01-20 20:09 | CP.PCM.PN ---
Subjective - Subjective Subjective: dictated Objective - Vital Signs/Intake and Output Vital Signs (last 24 hours): Temp Pulse Resp BP Pulse Ox 101.3 F H 82 20 136/77 95 01/20/18 17:35 01/20/18 16:00 01/20/18 16:00 01/20/18 16:00 01/20/18 16:00 Intake and Output: 01/20/18 01/21/18 18:59 06:59 Intake Total 240 Balance 240 - Medications Medications: Current Medications Acetaminophen (Tylenol 325mg Tab) 650 mg PO Q6 PRN PRN Reason: Headache Last Admin: 01/19/18 10:41 Dose: 650 mg Albuterol Sulfate (Albuterol 0.083% Inhal Trista (2.5 Mg/3 Ml) Ud) 2.5 mg INH RQ6 PRN PRN Reason: Shortness of Breath Amlodipine Besylate (Norvasc) 10 mg PO DAILY [facility] Last Admin: 01/20/18 11:07 Dose: 10 mg Aspirin (Aspirin) 325 mg PO DAILY [facility] Last Admin: 01/20/18 11:07 Dose: 325 mg Enoxaparin Sodium (Lovenox) 30 mg SC DAILY [facility] Last Admin: 01/20/18 11:38 Dose: 30 mg Fenofibrate (Tricor) 48 mg PO DAILY [facility] Last Admin: 01/20/18 11:07 Dose: 48 mg Gabapentin (Neurontin) 300 mg PO DAILY [facility] Last Admin: 01/20/18 11:06 Dose: 300 mg Home Med (Patient's Own Medication) 1 tab PO DAILY [facility] Insulin Aspart (Novolog) 0 unit SC [facility]; Protocol Last Admin: 01/20/18 17:36 Dose: 6 unit Insulin Glargine (Lantus) 34 unit SC DAILY [facility] Last Admin: 01/20/18 11:39 Dose: 34 units Mirtazapine (Remeron) 15 mg PO DAILY [facility] Last Admin: 01/20/18 11:06 Dose: 15 mg Montelukast Sodium (Singulair) 10 mg PO [facility] Last Admin: 01/19/18 21:50 Dose: 10 mg Pantoprazole Sodium (Protonix Ec Tab) 20 mg PO DAILY [facility] Last Admin: 01/20/18 11:07 Dose: 20 mg Quetiapine Fumarate (Seroquel) 25 mg PO HS [facility] Last Admin: 01/19/18 21:50 Dose: 25 mg Rosuvastatin Calcium (Crestor) 10 mg PO HS [facility] Last Admin: 01/19/18 21:50 Dose: 10 mg Sertraline HCl (Zoloft) 100 mg PO DAILY [facility] Last Admin: 01/20/18 11:08 Dose: 100 mg Tamsulosin HCl (Flomax) 0.4 mg PO DAILY [facility] Last Admin: 01/20/18 11:07 Dose: 0.4 mg Vitamin B Complex/Vitamin C (Berocca) 1 tab PO DAILY [facility] Last Admin: 01/20/18 11:06 Dose: 1 tab - Labs Labs: 01/18/18 13:36 01/19/18 08:29 PT 12.1 SECONDS (9.7-12.2) 01/15/18 09:45 INR 1.1 01/15/18 09:45 APTT 27 SECONDS (21-34) 01/15/18 09:45
[2018-01-20 21:08] LABS: SQUAMOUS EPITHIAL 2 /hpf (0-5); URINE BACTERIA FEW (<OCC); URINE BILIRUBIN NEGATIVE (NEGATIVE); URINE BLOOD NEGATIVE (NEGATIVE); URINE CLARITY Hazy (Clear); URINE COLOR Yellow (YELLOW); URINE GLUCOSE (UA) 3+ mg/dL (Normal); URINE LEUKOCYTE ESTERASE 1+ Leu/uL (Negative); URINE PROTEIN NEGATIVE (NEGATIVE); URINE UROBILINOGEN NORMAL mg/dL (0.2-1.0)
--- NOTE | 2018-01-20 21:33 | RAD ---
Chest x-ray single frontal view HISTORY: Fever. COMPARISON: 01/15/2018 Findings: Patchy increased consolidative markings seen within the right mid to lower lung zone as well as the left lung base. Diffuse increased interstitial lung markings. Small nodular density in the right midlung zone laterally may represent vessel on end. Mild right midlung atelectasis. Enlarged ectatic aorta. Right paratracheal opacity may represent prominent vasculature Mild cardiomegaly. Degenerative changes in the spine and shoulders. Productive change at the right shoulder with osteophytosis and or possible loose osteochondral body at the inferior aspect of the right bony glenoid. Radiopaque density projects over the right upper abdomen. Impression: Patchy increased consolidative markings seen within the right mid to lower lung zone as well as the left lung base. Diffuse increased interstitial lung markings. Small nodular density in the right midlung zone laterally may represent vessel on end. Mild right midlung atelectasis. Enlarged ectatic aorta. Right paratracheal opacity may represent prominent vasculature Mild cardiomegaly.
[2018-01-20 21:59] LABS: BASO % 0.8 % (0.0-2.0); EOS # 0.1 K/uL (0.0-0.7); EOS % 2.4 % (0.0-4.0); LYMPH # 0.8 K/uL (1.0-4.3); LYMPH % 13.8 % (20.0-40.0); MEAN CELL VOLUME 90.9 fL (80.0-94.0); MEAN CORPUSCULAR HEMOGLOBIN 29.8 pg (27.0-31.0); MEAN CORPUSCULAR HGB CONC 32.8 g/dL (33.0-37.0); MEAN PLATELET VOLUME 7.9 fL (7.2-11.7); MONO # 0.6 K/uL (0.0-0.8); MONO % 9.7 % (0.0-10.0); NEUT # 4.4 K/uL (1.8-7.0); NEUT % 73.3 % (50.0-75.0); RBC 3.78 Mil/uL (4.40-5.90); RED CELL DISTRIBUTION WIDTH 14.3 % (11.5-14.5)
[2018-01-20 22:08] LABS: HEMOGLOBIN 11.3 g/dL (12.0-18.0)
[2018-01-20 22:24] LABS: ALB/GLOB RATIO 1.1 (1.0-2.1); ALBUMIN 3.7 g/dL (3.5-5.0); CALCIUM 9.5 mg/dl (8.6-10.4)
--- NOTE | 2018-01-21 00:46 | PN ---
DATE: 01/20/2018 SUBJECTIVE: Juarez Cooper has a fever of 101.3. He is weak and dry. He is slightly drowsy. No fever. No chills. He denies any headache. He denies any cough. No nausea or vomiting. PHYSICAL EXAMINATION VITAL SIGNS: Blood pressure 136/77, pulse 82, respiratory rate 20, temperature 101.3. LUNGS: Clear. No rales. No rhonchi. CARDIOVASCULAR SYSTEM: S1 and S2 regular. No heave noted. ABDOMEN: Soft. Nontender. Bowel sounds positive. RECTAL: Enlarged prostate. EXTREMITIES: No clubbing, cyanosis or edema. ASSESSMENT: 1. Fever, rule out sepsis, rule out urinary tract infection, rule out pneumonia, rule out urosepsis. 2. Uncontrolled hypertension. 3. Uncontrolled diabetes. 4. Right-sided weakness, on physiotherapy. PLAN: Monitor the patient. Stat blood cultures. Chest x-ray, official report is pending. Chest x-ray seems to be negative. Cliff Bach MD
[2018-01-21] MEDS ORDERED: Metoprolol 1 mg/ml Inj IVP ONE (06:01)
[2018-01-21 08:10] LABS: BASO # 0.1 K/uL (0.0-0.2); BASO % 1.5 % (0.0-2.0); EOS # 0.3 K/uL (0.0-0.7); HEMOGLOBIN 12.2 g/dL (12.0-18.0); LYMPH # 1.1 K/uL (1.0-4.3); LYMPH % 17.8 % (20.0-40.0); MEAN CELL VOLUME 90.4 fL (80.0-94.0); MEAN CORPUSCULAR HEMOGLOBIN 30.7 pg (27.0-31.0); MEAN PLATELET VOLUME 8.3 fL (7.2-11.7); MONO # 0.6 K/uL (0.0-0.8); MONO % 9.7 % (0.0-10.0); RBC 3.98 Mil/uL (4.40-5.90); RED CELL DISTRIBUTION WIDTH 13.6 % (11.5-14.5); WHITE BLOOD COUNT 6.1 K/uL (4.8-10.8)
[2018-01-21 08:23] LABS: CALCIUM 9.9 mg/dl (8.6-10.4)
[2018-01-21] MEDS: (Novolog) Insulin Aspart, Recombinant 100 u/ml 10 ml vial SC SCH ×4 (08:24→22:26)
[2018-01-21] MEDS: Vitamin B Complex/Vitamin C Tab PO SCH (09:48)
[2018-01-21] MEDS: (Lantus) Insulin Glargine, Recombinant SC SCH (09:48)
[2018-01-21] MEDS: Enoxaparin 30 mg Syringe SC SCH (09:48)
[2018-01-21] MEDS: Pantoprazole 20 mg EC Tab PO SCH (09:49)
[2018-01-21] MEDS ORDERED: Patient's Own Medication - Tablet/Capusle PO SCH (10:00)
[2018-01-21] MEDS ORDERED: (Lantus) Insulin Glargine, Recombinant SC SCH (10:05)
[2018-01-21] MEDS: CASODEX 50 MG PO SCH (10:27)
--- NOTE | 2018-01-21 21:50 | CP.PCM.PN ---
Subjective - Subjective Subjective: dictated Objective - Vital Signs/Intake and Output Vital Signs (last 24 hours): Temp Pulse Resp BP Pulse Ox 99.0 F 78 20 151/73 H 78 L 01/21/18 08:00 01/21/18 08:00 01/21/18 08:00 01/21/18 08:00 01/21/18 08:00 Intake and Output: 01/21/18 01/22/18 18:59 06:59 Intake Total 600 Output Total 300 Balance 300 - Medications Medications: Current Medications Acetaminophen (Tylenol 325mg Tab) 650 mg PO Q6 PRN PRN Reason: Headache Last Admin: 01/19/18 10:41 Dose: 650 mg Albuterol Sulfate (Albuterol 0.083% Inhal Trista (2.5 Mg/3 Ml) Ud) 2.5 mg INH RQ6 PRN PRN Reason: Shortness of Breath Last Admin: 01/20/18 13:15 Dose: 2.5 mg Amlodipine Besylate (Norvasc) 10 mg PO DAILY [facility] Last Admin: 01/21/18 10:27 Dose: 10 mg Aspirin (Aspirin) 325 mg PO DAILY [facility] Last Admin: 01/21/18 09:47 Dose: 325 mg Enoxaparin Sodium (Lovenox) 30 mg SC DAILY [facility] Last Admin: 01/21/18 09:48 Dose: 30 mg Fenofibrate (Tricor) 48 mg PO DAILY [facility] Last Admin: 01/21/18 09:50 Dose: 48 mg Gabapentin (Neurontin) 300 mg PO DAILY [facility] Last Admin: 01/21/18 09:48 Dose: 300 mg Home Med (Patient's Own Medication) 1 tab PO DAILY [facility] Last Admin: 01/21/18 10:27 Dose: 1 tab Insulin Aspart (Novolog) 0 unit SC ACHS [facility]; Protocol Last Admin: 01/21/18 16:30 Dose: 4 unit Insulin Glargine (Lantus) 38 unit SC DAILY [facility] Loperamide HCl (Imodium) 2 mg PO Q4 PRN PRN Reason: Diarrhea Last Admin: 01/21/18 13:44 Dose: 2 mg Metronidazole (Flagyl) 500 mg PO Q8 [facility]; Protocol Stop: 01/31/18 14:01 Last Admin: 01/21/18 13:45 Dose: 500 mg Mirtazapine (Remeron) 15 mg PO DAILY [facility] Last Admin: 01/21/18 09:49 Dose: 15 mg Montelukast Sodium (Singulair) 10 mg PO HS [facility] Last Admin: 01/20/18 21:36 Dose: 10 mg Pantoprazole Sodium (Protonix Ec Tab) 20 mg PO DAILY [facility] Last Admin: 01/21/18 09:49 Dose: 20 mg Quetiapine Fumarate (Seroquel) 25 mg PO HS [facility] Last Admin: 01/20/18 21:36 Dose: 25 mg Rosuvastatin Calcium (Crestor) 10 mg PO HS [facility] Last Admin: 01/20/18 21:36 Dose: 10 mg Sertraline HCl (Zoloft) 100 mg PO DAILY [facility] Last Admin: 01/21/18 09:50 Dose: 100 mg Tamsulosin HCl (Flomax) 0.4 mg PO DAILY [facility] Last Admin: 01/21/18 09:48 Dose: 0.4 mg Vitamin B Complex/Vitamin C (Berocca) 1 tab PO DAILY [facility] Last Admin: 01/21/18 09:48 Dose: 1 tab - Labs Labs: 01/21/18 08:04 01/21/18 08:04 PT 12.1 SECONDS (9.7-12.2) 01/15/18 09:45 INR 1.1 01/15/18 09:45 APTT 27 SECONDS (21-34) 01/15/18 09:45
--- NOTE | 2018-01-22 02:38 | PN ---
DATE: 01/21/2018 SUBJECTIVE: Kenneth has C. diff colitis. The patient has diarrhea. He is afebrile. No shortness of breath. No nausea or vomiting. Chest x-ray negative. UA negative. Stool for C. diff positive. PHYSICAL EXAMINATION VITAL SIGNS: Blood pressure 131/72, pulse 78, respiratory rate 20, temperature 99. LUNGS: Clear. No rales or rhonchi. CARDIOVASCULAR SYSTEM: S1, S2 regular. ABDOMEN: Soft. ASSESSMENT: 1. Clostridium difficile colitis. Flagyl p.o. 2. Uncontrolled diabetes. 3. Hypertension. 4. Right-sided weakness. PLAN: Physical therapy. Rehab. Monitor the patient. Cliff Bach MD
[2018-01-22] MEDS: (Novolog) Insulin Aspart, Recombinant 100 u/ml 10 ml vial SC SCH ×4 (08:17→21:36)
[2018-01-22] MEDS: CASODEX 50 MG PO SCH (10:02)
[2018-01-22] MEDS: Pantoprazole 20 mg EC Tab PO SCH (10:02)
[2018-01-22] MEDS: Vitamin B Complex/Vitamin C Tab PO SCH (10:02)
[2018-01-22] MEDS: Enoxaparin 30 mg Syringe SC SCH (10:03)
--- NOTE | 2018-01-23 02:22 | PN ---
DATE: 01/22/2018 SUBJECTIVE: The patient is afebrile. Decreased diarrhea. Feels much better, stronger. No fever. No chills. No nausea or vomiting. PHYSICAL EXAMINATION: VITAL SIGNS: Blood pressure 148/80, pulse 67, respiratory rate 20, temperature 99.3. LUNGS: Clear. No rales. No rhonchi. CARDIOVASCULAR SYSTEM: S1 and S2 are regular. ABDOMEN: Soft. Nontender. Bowel sounds are positive. ASSESSMENT: 1. Clostridium difficile colitis, improving with treatment. 2. Hypertension. 3. Type 2 diabetes, poorly controlled. 4. Right-sided weakness. PLAN: Physical therapy. Monitor the patient. Cliff Bach MD
[2018-01-23 07:51] LABS: MEAN CELL VOLUME 89.2 fL (80.0-94.0); MEAN CORPUSCULAR HEMOGLOBIN 30.3 pg (27.0-31.0); MEAN CORPUSCULAR HGB CONC 33.9 g/dL (33.0-37.0); MEAN PLATELET VOLUME 7.6 fL (7.2-11.7); RBC 3.65 Mil/uL (4.40-5.90); RED CELL DISTRIBUTION WIDTH 13.9 % (11.5-14.5); WHITE BLOOD COUNT 4.4 K/uL (4.8-10.8)
[2018-01-23 08:02] LABS: CALCIUM 9.8 mg/dl (8.6-10.4)
[2018-01-23] MEDS: (Novolog) Insulin Aspart, Recombinant 100 u/ml 10 ml vial SC SCH ×5 (08:25→21:50)
[2018-01-23] MEDS: Vitamin B Complex/Vitamin C Tab PO SCH (10:05)
[2018-01-23] MEDS: Pantoprazole 20 mg EC Tab PO SCH (10:05)
[2018-01-23] MEDS: CASODEX 50 MG PO SCH (10:06)
[2018-01-23] MEDS: Enoxaparin 30 mg Syringe SC SCH (10:06)
[2018-01-23] MEDS: (Lantus) Insulin Glargine, Recombinant SC SCH ×2 (10:14→17:58)
[2018-01-23] MEDS: Albuterol 0.083% Inhal Sol (2.5 mg/3 mL) UD INH PRN (11:17)
[2018-01-23] MEDS: Vancomycin 125 MG/5 ML SOLN (ORAL/RECTAL) PO SCH ×3 (14:01→21:59)
--- NOTE | 2018-01-23 17:27 | CP.PCM.PN ---
Subjective - Date & Time of Evaluation Date of Evaluation: 01/23/18 Time of Evaluation: 11:00 - Subjective Subjective: awake, follows commands, no acute distress, NAD. Objective - Vital Signs/Intake and Output Vital Signs (last 24 hours): Temp Pulse Resp BP Pulse Ox 98.9 F 72 20 145/85 97 01/23/18 08:00 01/23/18 08:00 01/23/18 08:00 01/23/18 08:00 01/23/18 08:00 Intake and Output: 01/23/18 01/23/18 06:59 18:59 Intake Total 450 Balance 450 - Medications Medications: Current Medications Acetaminophen (Tylenol 325mg Tab) 650 mg PO Q6 PRN PRN Reason: Headache Last Admin: 01/19/18 10:41 Dose: 650 mg Albuterol Sulfate (Albuterol 0.083% Inhal Trista (2.5 Mg/3 Ml) Ud) 2.5 mg INH RQ6 PRN PRN Reason: Shortness of Breath Last Admin: 01/23/18 11:17 Dose: 2.5 mg Amlodipine Besylate (Norvasc) 10 mg PO DAILY [facility] Last Admin: 01/23/18 10:05 Dose: 10 mg Aspirin (Aspirin) 325 mg PO DAILY [facility] Last Admin: 01/23/18 10:05 Dose: 325 mg Fenofibrate (Tricor) 48 mg PO DAILY [facility] Last Admin: 01/23/18 10:07 Dose: 48 mg Gabapentin (Neurontin) 300 mg PO DAILY [facility] Last Admin: 01/23/18 10:06 Dose: 300 mg Home Med (Patient's Own Medication) 1 tab PO DAILY [facility] Last Admin: 01/23/18 10:06 Dose: 1 tab Insulin Aspart (Novolog) 0 unit SC ACHS [facility]; Protocol Last Admin: 01/23/18 12:16 Dose: 12 units Insulin Glargine (Lantus) 22 unit SC BID [facility] Last Admin: 01/23/18 10:14 Dose: 22 units Loperamide HCl (Imodium) 2 mg PO Q4 PRN PRN Reason: Diarrhea Last Admin: 01/21/18 13:44 Dose: 2 mg Metronidazole (Flagyl) 500 mg PO Q8 [facility]; Protocol Stop: 01/31/18 14:01 Last Admin: 01/23/18 14:01 Dose: 500 mg Mirtazapine (Remeron) 15 mg PO [facility] Montelukast Sodium (Singulair) 10 mg PO HS [facility] Last Admin: 01/22/18 21:36 Dose: 10 mg Pantoprazole Sodium (Protonix Ec Tab) 20 mg PO DAILY [facility] Last Admin: 01/23/18 10:05 Dose: 20 mg Quetiapine Fumarate (Seroquel) 25 mg PO HS [facility] Last Admin: 01/22/18 21:36 Dose: 25 mg Rosuvastatin Calcium (Crestor) 10 mg PO HS [facility] Last Admin: 01/22/18 21:35 Dose: 10 mg Sertraline HCl (Zoloft) 100 mg PO DAILY [facility] Last Admin: 01/23/18 10:07 Dose: 100 mg Tamsulosin HCl (Flomax) 0.4 mg PO DAILY [facility] Last Admin: 01/23/18 10:08 Dose: 0.4 mg Vancomycin HCl (Vancocin (Oral Or Rectal Use)) 125 mg PO QID [facility]; Protocol Last Admin: 01/23/18 14:01 Dose: 125 mg Vitamin B Complex/Vitamin C (Berocca) 1 tab PO DAILY [facility] Last Admin: 01/23/18 10:05 Dose: 1 tab - Labs Labs: 01/23/18 07:39 01/23/18 07:39 PT 12.1 SECONDS (9.7-12.2) 01/15/18 09:45 INR 1.1 01/15/18 09:45 APTT 27 SECONDS (21-34) 01/15/18 09:45 Assessment and Plan - Assessment and Plan (Free Text) Assessment: 87 YEAR OLD MALE ADMITTED WITH leg weakness and uncontrolled DM, seen and examined. 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 Able to swallow food, needed total care. Stool c-diff positive, had ome loose BM today. Discussed with DR Bach, plan to discharge to [facility] today. Flagyl 500mg po tid to continue for 10 more days.
[2018-01-23 20:10] VITALS: BP 146/84; PULSE 67; TEMP 97.9; O2SAT 99
--- NOTE | 2018-01-24 00:23 | CP.PCM.DIS ---
Provider - Provider Date of Admission: 01/17/18 04:44 Attending physician: Cliff Bach MD Consults: 01/15/18 18:51 Neurology Consult Routine Comment: Consulting Provider: Germna Hays Consulting Physician: German Hays Reason for Consult: cva 01/16/18 08:00 Social Work Referral Routine Comment: gumaro score - 9 Physician Instructions: Reason For Exam: gumaro score - 9 Hospital Course - Lab Results Lab Results: Micro Results 01/20/18 18:30 Blood-Venous Blood Culture - Preliminary NO GROWTH AFTER 3 DAYS 01/20/18 18:00 Blood-Venous Blood Culture - Preliminary NO GROWTH AFTER 3 DAYS 01/17/18 20:01 Naris MRSA Culture - Final MRSA NOT DETECTED 01/16/18 02:00 Nose MRSA Culture (Admit) - Final MRSA NOT DETECTED Most Recent Lab Values WBC 4.4 K/uL (4.8-10.8) L 01/23/18 07:39 RBC 3.65 Mil/uL (4.40-5.90) L 01/23/18 07:39 Hgb 11.0 g/dL (12.0-18.0) L 01/23/18 07:39 Hct 32.5 % (35.0-51.0) L 01/23/18 07:39 MCV 89.2 fL (80.0-94.0) 01/23/18 07:39 MCH 30.3 pg (27.0-31.0) 01/23/18 07:39 MCHC 33.9 g/dL (33.0-37.0) 01/23/18 07:39 RDW 13.9 % (11.5-14.5) 01/23/18 07:39 Plt Count 294 K/uL (130-400) 01/23/18 07:39 MPV 7.6 fL (7.2-11.7) 01/23/18 07:39 Neut % (Auto) 66.0 % (50.0-75.0) 01/21/18 08:04 Lymph % (Auto) 17.8 % (20.0-40.0) L 01/21/18 08:04 [place] % (Auto) 9.7 % (0.0-10.0) 01/21/18 08:04 Eos % (Auto) 5.0 % (0.0-4.0) H 01/21/18 08:04 Baso % (Auto) 1.5 % (0.0-2.0) 01/21/18 08:04 Neut # (Auto) 4.0 K/uL (1.8-7.0) 01/21/18 08:04 Lymph # (Auto) 1.1 K/uL (1.0-4.3) 01/21/18 08:04 [place] # (Auto) 0.6 K/uL (0.0-0.8) 01/21/18 08:04 Eos # (Auto) 0.3 K/uL (0.0-0.7) 01/21/18 08:04 Baso # (Auto) 0.1 K/uL (0.0-0.2) 01/21/18 08:04 PT 12.1 SECONDS (9.7-12.2) 01/15/18 09:45 INR 1.1 01/15/18 09:45 APTT 27 SECONDS (21-34) 01/15/18 09:45 Sodium 139 mmol/L (132-148) 01/23/18 07:39 Potassium 4.0 mmol/L (3.6-5.2) 01/23/18 07:39 Chloride 105 mmol/L (98-107) 01/23/18 07:39 Carbon Dioxide 23 mmol/L (22-30) 01/23/18 07:39 Anion Gap 14 (10-20) 01/23/18 07:39 BUN 33 mg/dL (9-20) H 01/23/18 07:39 Creatinine 1.8 mg/dL (0.8-1.5) H 01/23/18 07:39 Est GFR ( Amer) 44 01/23/18 07:39 Est GFR (Non-Af Amer) 36 01/23/18 07:39 POC Glucose (mg/dL) > 500 mg/dL (65-110) H* 01/23/18 11:07 Random Glucose 221 mg/dL (75-110) H 01/23/18 07:39 Calcium 9.8 mg/dl (8.6-10.4) 01/23/18 07:39 Magnesium 2.2 mg/dL (1.6-2.3) 01/23/18 07:39 Total Bilirubin 0.5 mg/dL (0.2-1.3) 01/20/18 21:55 AST 21 U/L (17-59) 01/20/18 21:55 ALT 17 U/L (21-72) L 01/20/18 21:55 Alkaline Phosphatase 101 U/L (38-126) 01/20/18 21:55 Troponin I < 0.0120 ng/mL (0.00-0.120) 01/15/18 09:45 Total Protein 7.0 g/dL (6.3-8.3) 01/20/18 21:55 Albumin 3.7 g/dL (3.5-5.0) 01/20/18 21:55 Globulin 3.3 gm/dL (2.2-3.9) 01/20/18 21:55 Albumin/Globulin Ratio 1.1 (1.0-2.1) 01/20/18 21:55 Triglycerides 164 mg/dL (0-149) H D 01/15/18 09:45 Cholesterol 147 mg/dL (0-199) 01/15/18 09:45 LDL Cholesterol Direct 69 mg/dL (0-129) 01/15/18 09:45 HDL Cholesterol 68 mg/dL (30-70) 01/15/18 09:45 Urine Color Yellow (YELLOW) 01/20/18 20:50 Urine Clarity Hazy (Clear) 01/20/18 20:50 Urine pH 5.0 (5.0-8.0) 01/20/18 20:50 Ur Specific [place] 1.023 (1.003-1.030) 01/20/18 20:50 Urine Protein Negative mg/dL (NEGATIVE) 01/20/18 20:50 Urine Glucose (UA) 3+ mg/dL (Normal) H 01/20/18 20:50 Urine Ketones Negative mg/dL (NEGATIVE) 01/20/18 20:50 Urine Blood Negative (NEGATIVE) 01/20/18 20:50 Urine Nitrate Negative (NEGATIVE) 01/20/18 20:50 Urine Bilirubin Negative (NEGATIVE) 01/20/18 20:50 Urine Urobilinogen Normal mg/dL (0.2-1.0) 01/20/18 20:50 Ur Leukocyte Esterase 1+ [place]/uL (Negative) H 01/20/18 20:50 Urine WBC (Auto) 12 /hpf (0-5) H 01/20/18 20:50 Urine RBC (Auto) 5 /hpf (0-3) H 01/20/18 20:50 Ur Squamous Epith Cells 2 /hpf (0-5) 01/20/18 20:50 Urine Bacteria Few (<OCC) H 01/20/18 20:50 Hyaline Casts 3-5 /lpf (0-2) H 01/15/18 10:20 C. difficile Ag & Toxin Positive (NEGATIVE) H 01/21/18 13:34 Discharge Plan - Follow Up Plan Condition: GOOD Disposition: REHAB FACILITY/REHAB UNIT Instructions: Diabetes Exchange Diet, Apraxia (DC) Referrals: Cliff Bach MD [Staff Provider] -
--- NOTE | 2018-01-24 20:45 | DS ---
DISCHARGE DIAGNOSES: Right-sided weakness, rule out acute cerebrovascular accident, type 2 diabetes, hypertension, Clostridium difficile colitis, dehydration, chronic kidney disease. HISTORY OF PRESENT ILLNESS: This is an 87-year-old male with history of type 2 diabetes, hypertension, hyperlipidemia, who came in because of generalized right-sided weakness. Initially, there was a suspicion of stroke and the patient was worked up. His MRI is negative. He was seen by Neurology and he was recommended physiotherapy. During course of hospitalization, he developed diarrhea which turned out to be C. difficile and the patient was treated, stabilized, and discharged with outpatient followup. CONDITION UPON DISCHARGE: Stable. She is going to [facility]. LABORATORY DATA: WBC 4.4, hemoglobin 11, hematocrit 32.5, platelets 294. Sodium 139, potassium 4, chloride 105, bicarb 23, BUN 33, creatinine 1.8, glucose 223 and 255. PHYSICAL EXAMINATION: VITAL SIGNS: Blood pressure 146/80, pulse 67, respiratory rate 20, temperature 97.9. CONDITION UPON DISCHARGE: Stable. Cliff Bach MD
== END 2018-01-23 22:43 | DRG 70 ==
LOC: C.ER 08:39 → C.9E 11:08 → C.9I 17:53 → OBSVTOIN 01-17 04:44 → C.3T 01-17 14:59
PROVIDERS: ADMIT Internal Medicine; ATTEND Internal Medicine
DX: I67.2 Cerebral atherosclerosis (principal); G93.41 Metabolic encephalopathy; I69.351 Hemiplegia and hemiparesis following cerebral infarction affecting right dominant side; A04.72 Enterocolitis due to Clostridium difficile, not specified as recurrent; E11.22 Type 2 diabetes mellitus with diabetic chronic kidney disease; E66.9 Obesity, unspecified; I12.9 Hypertensive chronic kidney disease with stage 1 through stage 4 chronic kidney disease, or unspecified chronic kidney disease; E11.65 Type 2 diabetes mellitus with hyperglycemia; E78.00 Pure hypercholesterolemia, unspecified; F01.50 Vascular dementia, unspecified severity, without behavioral disturbance, psychotic disturbance, mood disturbance, and anxiety; J44.9 Chronic obstructive pulmonary disease, unspecified; N18.9 Chronic kidney disease, unspecified; R45.1 Restlessness and agitation; E86.0 Dehydration

== ENCOUNTER 2018-01-31 11:11 | Emergency (ER) | payer MEDICARE ==
[2018-01-31 11:14] VITALS: BMI 26.4
[2018-01-31 11:22] VITALS: RESP 20; O2SAT 99
--- NOTE | 2018-01-31 11:51 | C.PDOC ---
Time Seen by Provider: 01/31/18 11:22 Chief Complaint (Nursing): ENT Problem Past Medical History Vital Signs: Last Vital Signs Temp 98.0 F 01/31/18 11:17 Pulse 74 01/31/18 11:17 Resp 20 01/31/18 11:17 BP 159/72 H 01/31/18 11:17 Pulse Ox 99 01/31/18 11:17 - Medical History PMH: Arthritis, Asthma, Back Problems, COPD, CVA, Dementia, Diabetes, Diverticulitis, HTN, Hypercholesterolemia, Kidney Stones (05-11-13), Chronic Kidney Disease, TIA Surgical History: Cholecystectomy - [facility] Procedures REMOV URETERAL DRAIN (06/13/13) URETERAL CATHETERIZATION (05/11/13) Family History: States: Unknown Family Hx, Diabetes - Social History Hx Tobacco Use: No (Former smoker) Hx Alcohol Use: No Hx Substance Use: No - Immunization History Hx Tetanus Toxoid Vaccination: Yes Hx Influenza Vaccination: Yes Hx Pneumococcal Vaccination: Yes ED Course And Treatment O2 Sat by Pulse Oximetry: 99 (on RA ) Pulse Ox Interpretation: Normal Disposition - Disposition - Scribe Statement The provider has reviewed the documentation as recorded by the Scribe (Angi Vance) All medical record entries made by the Scribe were at my direction and personally dictated by me. I have reviewed the chart and agree that the record accurately reflects my personal performance of the history, physical exam, medical decision making, and the department course for this patient. I have also personally directed, reviewed, and agree with the discharge instructions and disposition.
--- NOTE | 2018-01-31 11:55 | C.PDOC ---
History Of Present Illness 87 year old male is sent to the ED from detention for evaluation after he was found to be bleeding from his left nostril earlier today. Upon ED arrival, patient's bleeding has resolved. Patient denies any complaint at this time. Time Seen by Provider: 01/31/18 11:22 Chief Complaint (Nursing): ENT Problem History Per: Patient History/Exam Limitations: None Onset/Duration Of Symptoms: Mins Current Symptoms Are (Timing): Gone Past Medical History Reviewed: Historical Data, Nursing Documentation, Vital Signs Vital Signs: Last Vital Signs Temp 98.0 F 01/31/18 11:17 Pulse 74 01/31/18 11:17 Resp 20 01/31/18 11:17 BP 159/72 H 01/31/18 11:17 Pulse Ox 99 01/31/18 11:17 - Medical History PMH: Arthritis, Asthma, Back Problems, COPD, CVA, Dementia, Diabetes, Diverticulitis, HTN, Hypercholesterolemia, Kidney Stones (05-11-13), Chronic Kidney Disease, TIA Surgical History: Cholecystectomy - [facility] Procedures REMOV URETERAL DRAIN (06/13/13) URETERAL CATHETERIZATION (05/11/13) Family History: States: Unknown Family Hx, Diabetes - Social History Hx Tobacco Use: No (Former smoker) Hx Alcohol Use: No Hx Substance Use: No - Immunization History Hx Tetanus Toxoid Vaccination: Yes Hx Influenza Vaccination: Yes Hx Pneumococcal Vaccination: Yes Review Of Systems ENT: Positive for: Other (bleeding from left nostril ) Physical Exam - Physical Exam Appears: Non-toxic, No Acute Distress Skin: Normal Color, Warm, Dry Head: Atraumatic, Normacephalic Eye(s): bilateral: Normal Inspection Nose: Normal, No Epistaxis Oral Mucosa: Moist Neck: Supple Chest: Symmetrical, No Deformity, No Tenderness Cardiovascular: Rhythm Regular Respiratory: Normal Breath Sounds, No Rales, No Rhonchi, No Wheezing Extremity: Normal ROM, Other (dry blood noted on fingers ) Neurological/Psych: Oriented x3, Normal Speech, Normal Cognition ED Course And Treatment O2 Sat by Pulse Oximetry: 99 (on RA) Pulse Ox Interpretation: Normal Progress Note: On reassessment, patient is resting comfortably, showing no signs of distress and does not have any bleeding at this time. Patient is stable for discharge. Patient is given instructions to follow up with his PMD within 1-2 days for further evaluation and/or return to the ED if symptoms return or worsen. Reassessment Condition: Improved Disposition Counseled Patient/Family Regarding: Diagnosis, Need For Followup - Disposition Referrals: Cliff Bach MD [Staff Provider] - Disposition: TRANSF TO SNF Disposition Time: 13:00 Condition: STABLE Additional Instructions: Nasal saline spray every 4 hrs Return to ED if any increase symptoms Prescriptions: Sodium Chloride Nasal [place] [[place] Nasal [place]] 2 sprays NS Q4H #1 bottle Instructions: Nosebleeds Forms: [facility] [employer] ([place]wana) - POA Present On Arrival: None - Clinical Impression Clinical Impression: Nosebleed - PA / COAL GETTER / Resident Statement MD/DO has reviewed & agrees with the documentation as recorded. - Scribe Statement The provider has reviewed the documentation as recorded by the Scribe (Angi Vance) All medical record entries made by the Scribe were at my direction and personally dictated by me. I have reviewed the chart and agree that the record accurately reflects my personal performance of the history, physical exam, medical decision making, and the department course for this patient. I have also personally directed, reviewed, and agree with the discharge instructions and disposition.
[2018-01-31 14:09] VITALS: BP 143/70; PULSE 77; TEMP 98.4
== END 2018-01-31 14:08 ==
LOC: C.ER 11:11
DX: R04.0 Epistaxis (principal)

== ENCOUNTER 2018-02-01 07:10 | Emergency (ER) | payer MEDICARE ==
[2018-02-01 07:10] VITALS: BMI 26.4
[2018-02-01 07:14] VITALS: O2SAT 100
[2018-02-01 07:22] VITALS: RESP 18
--- NOTE | 2018-02-01 07:31 | C.PDOC ---
History Of Present Illness Patient sent from skilled nursing, per staff he had multiple nosebleeds from the left nare last night. Currently has no active bleeding. patient has no complaints. Time Seen by Provider: 02/01/18 07:21 Chief Complaint (Nursing): ENT Problem Past Medical History Reviewed: Historical Data, Nursing Documentation, Vital Signs Vital Signs: Last Vital Signs Temp 98.6 F 02/01/18 07:13 Pulse 76 02/01/18 07:13 Resp 18 02/01/18 07:13 BP 137/76 02/01/18 07:13 Pulse Ox 100 02/01/18 07:13 - Medical History PMH: Arthritis, Asthma, Back Problems, COPD, CVA, Dementia, Diabetes, Diverticulitis, HTN, Hypercholesterolemia, Kidney Stones (05-11-13), Chronic Kidney Disease, TIA Surgical History: Cholecystectomy - [facility] Procedures REMOV URETERAL DRAIN (06/13/13) URETERAL CATHETERIZATION (05/11/13) Family History: States: Unknown Family Hx, Diabetes - Social History Hx Tobacco Use: No (Former smoker) Hx Alcohol Use: No Hx Substance Use: No - Immunization History Hx Tetanus Toxoid Vaccination: Yes Hx Influenza Vaccination: Yes Hx Pneumococcal Vaccination: Yes Review Of Systems Except As Marked, All Systems Reviewed And Found Negative. Review Of Systems: ROS cannot be obtained secondary to pt's inabilty to answer questions. (Patient with baseline dementia, does not always answer questions appropriately) Physical Exam - Physical Exam Appears: Well, Non-toxic, No Acute Distress Skin: Normal Color, Warm, Dry Eye(s): bilateral: Normal Inspection Nose: Normal, No Discharge, No Epistaxis (dried blood in L nare, no active bleeding noted), No Septal Hematoma Oral Mucosa: Moist Cardiovascular: Rhythm Regular Respiratory: Normal Breath Sounds Gastrointestinal/Abdominal: Normal Exam Extremity: Normal ROM Neurological/Psych: No Oriented x3 (baseline dementia) ED Course And Treatment O2 Sat by Pulse Oximetry: 100 Medical Decision Making Medical Decision Making: Patient with no active epistaxis at this time. He has no complaints. He is not on any anticoagulants. Stable for discharge back to skilled nursing. Disposition - Disposition Disposition: HOME/ ROUTINE Disposition Time: 07:40 Condition: STABLE Additional Instructions: SHELLY MEI, thank you for letting us take care of you today. Your provider was Marlee Evans MD and you were treated for NOSE BLEED. The emergency medical care you received today was directed at your acute symptoms. If you were prescribed any medication, please fill it and take as directed. It may take several days for your symptoms to resolve. Return to the Emergency Department if your symptoms worsen, do not improve, or if you have any other problems. Please contact your doctor or call one of the physicians/clinics you have been referred to that are listed on the Patient Visit Information form that is included in your discharge packet. Bring any paperwork you were given at discharge with you along with any medications you are taking to your follow up v isit. Our treatment cannot replace ongoing medical care by a primary care provider outside of the emergency department. Thank you for allowing the [facility] team to be part of your care today. If you had an X-Ray or CT scan: A Radiologist will review the ED reading if any change in treatment is needed we will contact you. If you had a blood, urine, or wound culture: It will take several days for the results, if any change in treatment is needed we will contact you. If you had an STI test: It will take 48 hours for the results. Please call after 1 week if you have not heard back. Instructions: Nosebleeds (DC) Forms: [employer] (Icelandic) - Clinical Impression Clinical Impression: Epistaxis
[2018-02-01 09:34] VITALS: BP 168/91; PULSE 77; TEMP 97.6
== END 2018-02-01 10:28 | disposition home or self-care (01) ==
LOC: C.ER 07:10
DX: R04.0 Epistaxis (principal)

== ENCOUNTER 2018-02-24 03:03 | Emergency (ER) | payer MEDICARE ==
[2018-02-24 03:03] VITALS: BMI 26.4
[2018-02-24 04:43] LABS: BASO # 0.1 K/uL (0.0-0.2); BASO % 1.3 % (0.0-2.0); EOS # 0.3 K/uL (0.0-0.7); EOS % 6.6 % (0.0-4.0); LYMPH # 0.8 K/uL (1.0-4.3); LYMPH % 18.2 % (20.0-40.0); MEAN CORPUSCULAR HEMOGLOBIN 28.8 pg (27.0-31.0); MEAN CORPUSCULAR HGB CONC 32.7 g/dL (33.0-37.0); MEAN PLATELET VOLUME 7.4 fL (7.2-11.7); MONO # 0.3 K/uL (0.0-0.8); MONO % 6.8 % (0.0-10.0); NEUT # 3.1 K/uL (1.8-7.0); NEUT % 67.1 % (50.0-75.0); NRBC % 0.1 % (0.0-2.0); RBC 3.14 Mil/uL (4.40-5.90); RED CELL DISTRIBUTION WIDTH 14.9 % (11.5-14.5); WHITE BLOOD COUNT 4.6 K/uL (4.8-10.8)
[2018-02-24 04:51] LABS: INR 1.2; PROTHROMBIN TIME 12.8 SECONDS (9.7-12.2)
[2018-02-24 05:00] LABS: ALB/GLOB RATIO 1.2 (1.0-2.1); CALCIUM 9.4 mg/dl (8.6-10.4)
--- NOTE | 2018-02-24 05:02 | C.PDOC ---
History Of Present Illness 87 year old male with PMHx of CVA with residual right sided hemiparesis presents to the ED for evaluation of intermittent nose bleed for the past 3 days. Patient reports tonight bleeding was heavier and he was unable to stop it at home. Patient is currently taking aspirin but not other anticoagulant. Patient denies fever, chills, headache, visual changes, dizziness, weakness, numbness, injury, fall, trauma. Time Seen by Provider: 02/24/18 03:52 Chief Complaint (Nursing): ENT Problem History Per: Patient History/Exam Limitations: None Onset/Duration Of Symptoms: Days (3), Intermittent Episodes Current Symptoms Are (Timing): Still Present Anticoagulant/Antiplatlet Use?: No Recent Aspirin Use: Yes (Last Taken) Past Medical History Reviewed: Historical Data, Nursing Documentation, Vital Signs Vital Signs: Last Vital Signs Temp 98.2 F 02/24/18 03:08 Pulse 67 02/24/18 03:08 Resp 17 02/24/18 03:08 BP 153/70 H 02/24/18 03:08 Pulse Ox 98 02/24/18 03:08 - Medical History PMH: Arthritis, Asthma, Back Problems, COPD, CVA, Dementia, Diabetes, Diverticulitis, HTN, Hypercholesterolemia, Kidney Stones (05-11-13), Chronic Kidney Disease, TIA Surgical History: Cholecystectomy - [facility] Procedures REMOV URETERAL DRAIN (06/13/13) URETERAL CATHETERIZATION (05/11/13) Family History: States: Unknown Family Hx, Diabetes - Social History Hx Tobacco Use: No (Former smoker) Hx Alcohol Use: No Hx Substance Use: No - Immunization History Hx Tetanus Toxoid Vaccination: Yes Hx Influenza Vaccination: Yes Hx Pneumococcal Vaccination: Yes Review Of Systems Constitutional: Negative for: Fever, Chills ENT: Positive for: Nose Discharge. Negative for: Nose Pain, Nose Congestion, Throat Pain Cardiovascular: Negative for: Chest Pain, Palpitations Respiratory: Negative for: Cough, Shortness of Breath Gastrointestinal: Negative for: Nausea, Vomiting, Abdominal Pain Skin: Negative for: Rash Neurological: Negative for: Weakness, Numbness Physical Exam - Physical Exam Appears: Non-toxic, No Acute Distress Skin: Normal Color, Warm, Dry Head: Atraumatic, Normacephalic Eye(s): bilateral: Normal Inspection Ear(s): Bilateral: Normal Nose: No Epistaxis, No Septal Hematoma, Other (no clots or lesions seen in nares) Oral Mucosa: Moist Neck: Normal ROM, Supple Chest: Symmetrical Cardiovascular: Rhythm Regular Respiratory: Normal Breath Sounds, No Rales, No Rhonchi, No Wheezing Extremity: No Tenderness, No Swelling, Other (right sided hemiparesis) Neurological/Psych: Oriented x3, Normal Speech, Normal Cognition ED Course And Treatment - Laboratory Results Result Diagrams: 02/24/18 04:39 02/24/18 04:39 O2 Sat by Pulse Oximetry: 98 (ON RA) Pulse Ox Interpretation: Normal Progress Note: Plan: - Labs. BP elevated upon arrival to the ED, repeat BP done again and much improved. Patient comfortable in the ED in NAD no epistaxis, no septal hematoma. Pt will be d/c by ambulpercy, advised ENT follow up Reassessment Condition: Improved Disposition Counseled Patient/Family Regarding: Diagnosis, Need For Followup - Disposition Disposition: HOME/ ROUTINE Disposition Time: 06:18 Condition: STABLE Additional Instructions: Please follow up with pMD Use saline nasal spray MAke sure home is not too hot/ Use a humidifier to moisturize nose Return to ER if bleeding recurs or worse Instructions: Nosebleeds (DC) Forms: [employer] (Vincentian) - Clinical Impression Clinical Impression: Nosebleed - PA / ADJUNCT NURSING FACULTY / Resident Statement MD/DO has reviewed & agrees with the documentation as recorded. - Scribe Statement The provider has reviewed the documentation as recorded by the Scribe Jose A Lancaster All medical record entries made by the Scribe were at my direction and personally dictated by me. I have reviewed the chart and agree that the record accurately reflects my personal performance of the history, physical exam, medical decision making, and the department course for this patient. I have also personally directed, reviewed, and agree with the discharge instructions and disposition.
[2018-02-24 06:17] VITALS: BP 143/86; PULSE 71; RESP 16
[2018-02-24 06:20] VITALS: TEMP 98.3
[2018-02-24 06:21] VITALS: O2SAT 98
== END 2018-02-24 07:25 | disposition home or self-care (01) ==
LOC: C.ER 03:03
DX: R04.0 Epistaxis (principal)

== ENCOUNTER 2018-02-26 23:23 | Emergency (ER) | payer MEDICARE ==
[2018-02-26 23:23] VITALS: BMI 26.4
--- NOTE | 2018-02-26 23:49 | C.PDOC ---
History Of Present Illness 87 year old male with PMHx of CVA, insulin dependant DM is brought to the ED by EMS for evaluation. As per Family patient was found on the floor unresponsive. Patient was found to be hypoglycemic with his blood sugar low at 30. EMS gave patient AMP D50 and patient went back to baseline. Patient has residual right hand paralysis due to old CVA. Patient now AOx3, offers no complaints. Time Seen by Provider: 02/26/18 23:48 Chief Complaint (Nursing): Altered Mental Status History Per: EMS, Family History/Exam Limitations: None Onset/Duration Of Symptoms: Hrs Onset Of Symptoms: Cannot Confirm Onset Current Symptoms Are (Timing): Better Exacerbating Factor(s): Diabetic Use Of Anticoag/Antiplatelets: No Recent travel outside of the [place]: No Additional History Per: Patient, EMS, Family Past Medical History Reviewed: Historical Data, Nursing Documentation, Vital Signs - Medical History PMH: Arthritis, Asthma, Back Problems, COPD, CVA, Dementia, Diabetes, Diverticu litis, HTN, Hypercholesterolemia, Kidney Stones (05-11-13), Chronic Kidney Disease, TIA Surgical History: Cholecystectomy - [facility] Procedures REMOV URETERAL DRAIN (06/13/13) URETERAL CATHETERIZATION (05/11/13) Family History: States: Unknown Family Hx, Diabetes - Social History Hx Tobacco Use: No (Former smoker) Hx Alcohol Use: No Hx Substance Use: No - Immunization History Hx Tetanus Toxoid Vaccination: Yes Hx Influenza Vaccination: Yes Hx Pneumococcal Vaccination: Yes Review Of Systems Constitutional: Negative for: Fever, Chills Cardiovascular: Negative for: Chest Pain, Palpitations Respiratory: Negative for: Shortness of Breath Gastrointestinal: Negative for: Nausea, Vomiting, Abdominal Pain Skin: Negative for: Rash Neurological: Negative for: Weakness, Numbness, Altered Mental Status, Dizziness Physical Exam - Physical Exam Appears: Non-toxic, No Acute Distress Skin: Warm, Dry Head: Normacephalic Eye(s): bilateral: Normal Inspection Oral Mucosa: Moist Teeth: No Normal Dentition (poor dentition) Neck: Supple Chest: Symmetrical Cardiovascular: Rhythm Regular Respiratory: No Rales, No Rhonchi, No Wheezing Gastrointestinal/Abdominal: Soft, No Tenderness, No Guarding, No Rebound Extremity: Capillary Refill (< 2 seconds) Extremity: Left: Atraumatic, Normal Color And Temperature, Normal ROM, Right: Other (right hand paralysis baseline) Neurological/Psych: Oriented x3, Normal Speech, Normal Cognition, No Normal Motor (decreased strenght right leg) Gait: Unable To Assess ED Course And Treatment - Laboratory Results Result Diagrams: 02/27/18 01:02 02/27/18 01:02 ECG: Interpreted By Me, Viewed By Me ECG Rhythm: Sinus Rhythm (56), Nonspecific Changes O2 Sat by Pulse Oximetry: 99 (ON RA ) Pulse Ox Interpretation: Normal - Radiology CXR: Interpreted by Me, Viewed By Me - CT Scan/US CT head Other Rad Studies (CT/US): Read By Radiologist, Radiology Report Reviewed CT/US Interpretation: CT scan of the head. CLINICAL HISTORY: Dizziness. Unresponsive. TECHNIQUE: Multiple axial CT images were obtained through the brain without IV contrast material. COMPARISON: 01/15/2018. COMMENTS: Chronic ischemic encephalomalacia in the territory of the left middle cerebral artery. There is normal configuration of sella turcica. There are no intra or extra- axial collections. There is no mass effect or midline shift. There is no evidence of hematoma formation. No hydrocephalus is present. The ventricles are symmetrical. No abnormal calcifications are present. There is diffuse age- appropriate cerebellar and cerebral atrophy with proportionally dilated ventricles and cortical sulci. There are bilateral periventricular and subcortical white matter hypolucencies compatible with mild chronic microvascular disease. Otherwise, no significant focal abnormalities are seen either in the posterior fossa or supratentorial compartment. Chronic mucosal inflammatory changes in the left sphenoid sinus and ethmoid air cells. IMPRESSION: 1. Age-appropriate cerebellar and cerebral atrophy. 2. Mild chronic microvascular disease. 3. No evidence of acute intracranial pathology. Thank you for your kind referral of this patient. . Electronically signed on Feb 27, 2018 1:20:06 AM EST by: Darian Starkey M.D., Certified by ABR, MSK, Neuroradiology. Progress Note: Plan: - VBG. - CT head. - EKG. - Labs. - CXR. - UA. Pt resting comfortable. bs stable Reevaluation Time: 06:29 Reassessment Condition: Improved Disposition Counseled Patient/Family Regarding: Studies Performed, Diagnosis, Need For Followup - Disposition Referrals: [facility] [Outside] Disposition: HOME/ ROUTINE Disposition Time: 23:49 Condition: FAIR Additional Instructions: Please check your sugar at least 4 times a day and return if symptoms recur Instructions: Low Blood Sugar, Adult (DC) Forms: [employer] [facility] [employer] (French) - Clinical Impression Clinical Impression: Hypoglycemia - Scribe Statement The provider has reviewed the documentation as recorded by the Scribe Jose A Lancaster All medical record entries made by the Scribe were at my direction and personally dictated by me. I have reviewed the chart and agree that the record accurately reflects my personal performance of the history, physical exam, medical decision making, and the department course for this patient. I have also personally directed, reviewed, and agree with the discharge instructions and disposition.
[2018-02-27 01:10] LABS: VENOUS BLOOD GAS BASE EXCESS -1.4 mmol/L (0.0-2.0); VENOUS BLOOD GAS PCO2 54 mmHg (40-60); VENOUS BLOOD GAS PO2 49 mm/Hg (30-55); VENOUS BLOOD PH 7.29 (7.32-7.43)
[2018-02-27 01:16] LABS: BASO % 0.8 % (0.0-2.0); EOS # 0.1 K/uL (0.0-0.7); EOS % 0.9 % (0.0-4.0); HEMOGLOBIN 9.7 g/dL (12.0-18.0); LYMPH # 0.4 K/uL (1.0-4.3); LYMPH % 7.7 % (20.0-40.0); MEAN CELL VOLUME 88.4 fL (80.0-94.0); MEAN CORPUSCULAR HEMOGLOBIN 28.8 pg (27.0-31.0); MEAN CORPUSCULAR HGB CONC 32.6 g/dL (33.0-37.0); MEAN PLATELET VOLUME 7.4 fL (7.2-11.7); MONO # 0.3 K/uL (0.0-0.8); MONO % 5.5 % (0.0-10.0); NEUT # 4.8 K/uL (1.8-7.0); NEUT % 85.1 % (50.0-75.0); NRBC % 0.1 % (0.0-2.0); PLATELET COUNT 306 K/uL (130-400); RBC 3.38 Mil/uL (4.40-5.90); RED CELL DISTRIBUTION WIDTH 15.1 % (11.5-14.5); WHITE BLOOD COUNT 5.7 K/uL (4.8-10.8)
[2018-02-27 01:47] LABS: ALB/GLOB RATIO 1.3 (1.0-2.1); ALBUMIN 4.6 g/dL (3.5-5.0); CALCIUM 9.7 mg/dl (8.6-10.4)
[2018-02-27 02:53] LABS: BANDS 1 % (0-2); EOSINOPHIL 1 % (0-4); LYMPHOCYTE 10 % (20-40); MONOCYTE 6 % (0-10); NEUTROPHIL 82 % (50-75); PLATELET ESTIMATE NORMAL (NORMAL); TOTAL CELLS COUNTED 100
[2018-02-27 06:38] VITALS: O2SAT 100
[2018-02-27 08:07] VITALS: BP 151/78; PULSE 75; RESP 17; TEMP 98.4
--- NOTE | 2018-02-27 08:24 | CT ---
Date of service: 02/26/2018 PROCEDURE: CT HEAD WITHOUT CONTRAST. HISTORY: dizziness unresponsive history of left sided cerebrovascular accident COMPARISON: 01/15/2018 TECHNIQUE: Axial computed tomography images were obtained through the head/brain without intravenous contrast. Radiation dose: Total exam DLP = 1032.7 mGy-cm. This CT exam was performed using one or more of the following dose reduction techniques: Automated exposure control, adjustment of the mA and/or kV according to patient size, and/or use of iterative reconstruction technique. FINDINGS: HEMORRHAGE: No intracranial hemorrhage. BRAIN: No mass effect or edema. Scattered focal lucencies in the subcortical and periventricular white matter suggestive for chronic microvascular ischemic change. Chronic infarcts again noted in the left frontal subcortical and deeper white matter extending inferiorly along the left lateral basal ganglia. Another area of chronic ischemic change noted in the right posterior frontal parietal region. Bilateral basal ganglia lacunar infarcts. Generalized parenchymal volume loss and atrophy. VENTRICLES: Unremarkable. No hydrocephalus. CALVARIUM: Unremarkable. PARANASAL SINUSES: Prominent opacification of the ethmoid air cells, sphenoid sinus, and frontal sinus. MASTOID AIR CELLS: Unremarkable as visualized. No inflammatory changes. OTHER FINDINGS: Changes of bilateral cataract surgery. IMPRESSION: Age-appropriate cerebral and cerebellar atrophy. Chronic microvascular ischemic changes. Chronic infarcts again noted as described above in the left frontal subcortical and deeper white matter extending to the left lateral basal ganglia as well as within the posterior right frontal parietal region. No evidence of acute intracranial abnormality. If symptoms persists, consider correlation with MRI. A preliminary report was generated at 1:20 a.m. on 02/27/[address] Darian Starkey from [employer].
--- NOTE | 2018-02-27 11:35 | RAD ---
Chest x-ray single frontal view HISTORY: Diabetic. COMPARISON: 01/15/2018 Findings: Mild venous congestion. Right hilar prominence. Mild patchy increased markings at the lung bases. Right paratracheal prominence likely represents prominent vasculature. Tortuous aorta. Degenerative changes in the spine and shoulders. Impression: Mild venous congestion. Right hilar prominence. Mild patchy increased markings at the lung bases. Right paratracheal prominence likely represents prominent vasculature. Tortuous aorta.
== END 2018-02-27 08:30 | disposition home or self-care (01) ==
LOC: C.ER 23:23
DX: E11.649 Type 2 diabetes mellitus with hypoglycemia without coma (principal); Z79.4 Long term (current) use of insulin

== ENCOUNTER 2018-04-22 06:52 | Inpatient (IN) | payer MEDICARE ==
[2018-04-22 06:52] VITALS: BMI 26.4
[2018-04-22] MEDS ORDERED: Sodium Chloride 0.9% 1,000 ML IV ONE (07:06)
[2018-04-22 07:39] LABS: BASO # 0.1 K/uL (0.0-0.2); BASO % 1.2 % (0.0-2.0); EOS # 0.2 K/uL (0.0-0.7); EOS % 4.4 % (0.0-4.0); HEMOGLOBIN 10.4 g/dL (12.0-18.0); LYMPH # 0.6 K/uL (1.0-4.3); LYMPH % 11.9 % (20.0-40.0); MEAN CORPUSCULAR HEMOGLOBIN 24.7 pg (27.0-31.0); MEAN PLATELET VOLUME 7.5 fL (7.2-11.7); MONO # 0.5 K/uL (0.0-0.8); MONO % 8.4 % (0.0-10.0); NEUT % 74.1 % (50.0-75.0); RBC 4.22 Mil/uL (4.40-5.90); RED CELL DISTRIBUTION WIDTH 21.3 % (11.5-14.5); WHITE BLOOD COUNT 5.4 K/uL (4.8-10.8)
[2018-04-22 07:42] LABS: GRANULAR CAST 1 /lpf (0-1); URINE BILIRUBIN NEGATIVE (NEGATIVE); URINE BLOOD NEGATIVE (NEGATIVE); URINE CLARITY Clear (Clear); URINE COLOR Amber (YELLOW); URINE GLUCOSE (UA) NORMAL (Normal); URINE LEUKOCYTE ESTERASE NEG Leu/uL (Negative); URINE PROTEIN 1+ mg/dL (NEGATIVE); URINE UROBILINOGEN NORMAL mg/dL (0.2-1.0)
[2018-04-22 07:42] LABS: MEAN CELL VOLUME 79.7 fL (80.0-94.0)
[2018-04-22 07:53] LABS: ALB/GLOB RATIO 1.2 (1.0-2.1); ALBUMIN 4.5 g/dL (3.5-5.0)
--- NOTE | 2018-04-22 07:56 | C.PDOC ---
History Of Present Illness 87 years old male presents to ED for complaints of dull and sometimes burning lower abdominal pain that began 4 days ago. Patient also reports dysuria and several episodes of non-bloody vomiting. Denies diarrhea or any other complai nts. Time Seen by Provider: 04/22/18 07:03 Chief Complaint (Nursing): Abdominal Pain History Per: Patient History/Exam Limitations: no limitations Onset/Duration Of Symptoms: Days (4) Current Symptoms Are (Timing): Still Present Location Of Pain/Discomfort: RLQ, LLQ Radiation Of Pain To:: None Quality Of Discomfort: Dull, Burning Associated Symptoms: Vomiting. denies: Fever, Chills, Diarrhea Exacerbating Factors: None Alleviating Factors: None Last Bowel Movement: Today Recent travel outside of the [place]: No Past Medical History Reviewed: Historical Data, Nursing Documentation, Vital Signs Vital Signs: Last Vital Signs Temp 98.7 F 04/22/18 06:55 Pulse 75 04/22/18 06:55 Resp 14 04/22/18 06:55 BP 157/82 H 04/22/18 06:55 Pulse Ox 98 04/22/18 06:55 - Medical History PMH: Arthritis, Asthma, Back Problems, COPD, CVA, Dementia, Diabetes, Diverticulitis, HTN, Hypercholesterolemia, Kidney Stones (05-11-13), Chronic Kidney Disease, TIA Surgical History: Cholecystectomy - [facility] Procedures REMOV URETERAL DRAIN (06/13/13) URETERAL CATHETERIZATION (05/11/13) Family History: States: Unknown Family Hx, Diabetes - Social History Hx Tobacco Use: No (Former smoker) Hx Alcohol Use: No Hx Substance Use: No - Immunization History Hx Tetanus Toxoid Vaccination: Yes Hx Influenza Vaccination: No Hx Pneumococcal Vaccination: Yes Review Of Systems Except As Marked, All Systems Reviewed And Found Negative. Constitutional: Negative for: Fever, Chills Gastrointestinal: Positive for: Vomiting (Non-bloody ), Abdominal Pain (Lower ). Negative for: Diarrhea, Constipation Genitourinary: Positive for: Dysuria. Negative for: Hematuria Skin: Negative for: Rash Neurological: Negative for: Weakness, Numbness Physical Exam - Physical Exam Appears: Non-toxic, No Acute Distress Skin: Normal Color, Warm, Dry, No Rash Head: Atraumatic, Normacephalic Eye(s): bilateral: Normal Inspection, PERRL, EOMI Oral Mucosa: Moist Neck: Normal ROM, Supple Chest: Symmetrical, No Tenderness Cardiovascular: Rhythm Regular Respiratory: Normal Breath Sounds, No Rales, No Rhonchi, No Wheezing Gastrointestinal/Abdominal: Soft, Tenderness (Suprapubic ), No Distention, No Guarding, No Rebound Extremity: Normal ROM Extremity: Bilateral: Atraumatic, Normal Color And Temperature, Normal ROM Pulses: Left Radial: Normal, Right Radial: Normal Neurological/Psych: Oriented x3, Normal Speech Gait: Steady ED Course And Treatment - Laboratory Results Result Diagrams: 04/22/18 07:36 04/22/18 07:36 Lab Results: Total Bilirubin 1.5 mg/dL (0.2-1.3) H 04/22/18 07:36 AST 232 U/L (17-59) H D 04/22/18 07:36 ALT 226 U/L (21-72) H D 04/22/18 07:36 Alkaline Phosphatase 686 U/L (38-126) H D 04/22/18 07:36 Total Protein 8.3 g/dL (6.3-8.3) 04/22/18 07:36 Albumin 4.5 g/dL (3.5-5.0) 04/22/18 07:36 Globulin 3.9 gm/dL (2.2-3.9) 04/22/18 07:36 Albumin/Globulin Ratio 1.2 (1.0-2.1) 04/22/18 07:36 Lipase 159 U/L (23-300) 04/22/18 07:36 Urine Color Naya (YELLOW) 04/22/18 07:31 Urine Clarity Clear (Clear) 04/22/18 07:31 Urine pH 5.0 (5.0-8.0) 04/22/18 07:31 Ur Specific [place] 1.019 (1.003-1.030) 04/22/18 07:31 Urine Protein 1+ mg/dL (NEGATIVE) H 04/22/18 07:31 Urine Glucose (UA) Normal mg/dL (Normal) 04/22/18 07:31 Urine Ketones Negative mg/dL (NEGATIVE) 04/22/18 07:31 Urine Blood Negative (NEGATIVE) 04/22/18 07:31 Urine Nitrate Negative (NEGATIVE) 04/22/18 07:31 Urine Bilirubin Negative (NEGATIVE) 04/22/18 07:31 Urine Urobilinogen Normal mg/dL (0.2-1.0) 04/22/18 07:31 Ur Leukocyte Esterase Neg Shaw/uL (Negative) 04/22/18 07:31 Urine WBC (Auto) 1 /hpf (0-5) 04/22/18 07:31 Urine RBC (Auto) < 1 /hpf (0-3) 04/22/18 07:31 Hyaline Casts 6-10 /lpf (0-2) H 04/22/18 07:31 Granular Casts (Auto) 1 /lpf (0-1) 04/22/18 07:31 O2 Sat by Pulse Oximetry: 98 (RA) Pulse Ox Interpretation: Normal - CT Scan/US CT Abdomen/Pelvis Other Rad Studies (CT/US): Read By Radiologist, Radiology Report Reviewed CT/US Interpretation: Date of service: 04/22/2018. PROCEDURE: CT Abdomen and Pelvis with contrast. HISTORY: abd pain. COMPARISON: CT scan of the abdomen pelvis dated 06/02/2017. TECHNIQUE: Contrast dose: 100 mL Visipaque 320. Radiation dose: Total exam DLP = 724.69 mGy-cm. This CT exam was performed using one or more of the following dose reduction techniques: Automated exposure control, adjustment of the mA and/or kV according to patient size, and/or use of iterative reconstruction technique. FINDINGS: LOWER THORAX: Cardiomegaly. LIVER: Hepatic steatosis. Mild to moderate intrahepatic ductal dilatation. GALLBLADDER AND BILE DUCTS: Prior cholecystectomy with surgical clips in place. Common bile duct dilatation measuring up to 1.3 cm. PANCREAS: Unremarkable. No gross lesion or ductal dilatation. SPLEEN: Unremarkable. ADRENALS: Unremarkable. No mass. KIDNEYS AND URETERS: Stable 2.6 x 2.5 cm hyperdense renal mass in the anterior right mid/lower pole. Additional nonspecific too small to characterize hyperdense structures in the right kidney. No hydronep hrosis. No solid mass. VASCULATURE: Unremarkable. No aortic aneurysm. No aortic atherosclerotic calcification or mural plaque present. BOWEL: Unremarkable. No obstruction. No gross mural thickening. APPENDIX: No findings to suggest acute appendicitis. PERITONEUM: Unremarkable. No free fluid. No free air. LYMPH NODES: Extensive retroperitoneal adenopathy with nodes also seen in the periportal, portacaval, aortocaval regions. Large lymph node conglomerate measures 4.0 x 5.9 cm, is located anterior to the inferior vena cava and displaces the duodenum and pancreas anteriorly. No other lymph node conglomerate spans 6.7 x 4.4 cm and displaces the inferior vena cava anterior and laterally. BLADDER: Bladder wall trabeculations may be related to chronic bladder outlet obstruction. REPRODUCTIVE: Prostatomegaly. BONES: Patchy sclerotic lesion in the left iliac bone adjacent to the sacroiliac joint. Small lucent lesion in the left iliac wing (series 3, image 138). Patchy sclerotic lesion in the left iliac bone posteriorly.. Small lucent lesion in the left aspect of L5. Patchy sclerotic small lesions in a few scattered vertebral bodies. No acute fracture. OTHER FINDINGS: None. IMPRESSION: Worsening diffuse metastatic disease. Extensive large conglomerate retroperitoneal adenopathy with nodes also seen in the periportal, portacaval and aortocaval regions. Nodes displace structures such as the duodenum, pancreas and inferior vena cava, but do not appear to invade. Numerous osseous lesions as described above. Additional findings as above. Medical Decision Making Medical Decision Making: Plan: * Morphine * IV Fluids * Zofran * Blood work * Urinalysis * Urine Culture * CT Abdomen& Pelvis 10:22AM: Spoke with Bev Rothman and he accepted patient to regular floor admission. Disposition Discussed With : Cliff Bach (admit to medical floor) Doctor Will See Patient In The: Hospital - Disposition Disposition: HOSPITALIZED Disposition Time: 10:23 Condition: STABLE - POA Present On Arrival: None - Clinical Impression Clinical Impression: Abdominal pain, Intractable abdominal pain - Scribe Statement The provider has reviewed the documentation as recorded by the Linda Bailey All medical record entries made by the Maddiibheraclio were at my direction and personally dictated by me. I have reviewed the chart and agree that the record accurately reflects my personal performance of the history, physical exam, medical decision making, and the department course for this patient. I have also personally directed, reviewed, and agree with the discharge instructions and disposition.
[2018-04-22] MEDS ORDERED: Sodium Chloride 0.9% 1,000 ML ONE (08:12)
[2018-04-22] MEDS ORDERED: Iodixanol 320 MG/ML 100 ML BOTTLE IV ONE (08:15)
--- NOTE | 2018-04-22 10:14 | CT ---
Date of service: 04/22/2018 PROCEDURE: CT Abdomen and Pelvis with contrast HISTORY: abd pain COMPARISON: CT scan of the abdomen pelvis dated 06/02/2017. TECHNIQUE: Contrast dose: 100 mL Visipaque 320 Radiation dose: Total exam DLP = 724.69 mGy-cm. This CT exam was performed using one or more of the following dose reduction techniques: Automated exposure control, adjustment of the mA and/or kV according to patient size, and/or use of iterative reconstruction technique. FINDINGS: LOWER THORAX: Cardiomegaly. LIVER: Hepatic steatosis. Mild to moderate intrahepatic ductal dilatation. GALLBLADDER AND BILE DUCTS: Prior cholecystectomy with surgical clips in place. Common bile duct dilatation measuring up to 1.3 cm PANCREAS: Unremarkable. No gross lesion or ductal dilatation. SPLEEN: Unremarkable. ADRENALS: Unremarkable. No mass. KIDNEYS AND URETERS: Stable 2.6 x 2.5 cm hyperdense renal mass in the anterior right mid/lower pole. Additional nonspecific too small to characterize hyperdense structures in the right kidney. No hydronephrosis. No solid mass. VASCULATURE: Unremarkable. No aortic aneurysm. No aortic atherosclerotic calcification or mural plaque present. BOWEL: Unremarkable. No obstruction. No gross mural thickening. APPENDIX: No findings to suggest acute appendicitis. PERITONEUM: Unremarkable. No free fluid. No free air. LYMPH NODES: Extensive retroperitoneal adenopathy with nodes also seen in the periportal, portacaval, aortocaval regions. Large lymph node conglomerate measures 4.0 x 5.9 cm, is located anterior to the inferior vena cava and displaces the duodenum and pancreas anteriorly. No other lymph node conglomerate spans 6.7 x 4.4 cm and displaces the inferior vena cava anterior and laterally. BLADDER: Bladder wall trabeculations may be related to chronic bladder outlet obstruction. REPRODUCTIVE: Prostatomegaly. BONES: Patchy sclerotic lesion in the left iliac bone adjacent to the sacroiliac joint. Small lucent lesion in the left iliac wing (series 3, image 138). Patchy sclerotic lesion in the left iliac bone posteriorly.. Small lucent lesion in the left aspect of L5. Patchy sclerotic small lesions in a few scattered vertebral bodies. No acute fracture. OTHER FINDINGS: None. IMPRESSION: Worsening diffuse metastatic disease. Extensive large conglomerate retroperitoneal adenopathy with nodes also seen in the periportal, portacaval and aortocaval regions. Nodes displace structures such as the duodenum, pancreas and inferior vena cava, but do not appear to invade. Numerous osseous lesions as described above. Additional findings as above.
--- NOTE | 2018-04-23 02:40 | HP ---
REASON FOR ADMISSION: Abdominal pain. HISTORY OF PRESENT ILLNESS: The patient is an 87-year-old male originally from [place] who has a history of abdominal surgery many years ago. He does not recall date, name or the diagnosis at that time. He presented because of lower abdominal pain, nausea, and vomiting. The patient denies any diarrhea. The patient has a history of CVA with residual right hemiparesis and has an ankle support. The patient denies retrosternal chest pain and is unaware of any history of heart attack in the past. SOCIAL HISTORY: Nonsmoker and nondrinker. He lives with his . MEDICATIONS: The patient's home medication include Norvasc, Singulair, gabapentin, Flomax, Casodex, vitamin B complex, TriCor, aspirin, Lipitor, Seroquel. REVIEW OF SYSTEMS: No dizziness or syncope. No recent fall. No retrosternal chest pain. PHYSICAL EXAMINATION: GENERAL: The patient is an elderly male who does not appear to be in acute distress. VITAL SIGNS: Blood pressure 141/72, heart rate 65, temperature 97.8, respirations 20. HEENT: Normocephalic. CHEST: Clear. HEART: S1 and S2, regular. ABDOMEN: Mild epigastric tenderness. EXTREMITIES: Show no edema. LABORATORY DATA: Hemoglobin and hematocrit 10.4 and 33.6, white count 5.4, and platelet count 241,000. Today's SMA-7 is within normal limits except for glucose of 186 and BUN of 22. Total bilirubin is 1.5. AST and ALT are 230 and 226 respectively. Alkaline phosphatase is 686. Abdomen and pelvic CT scan revealed worsening diffuse metastatic disease. Extensive large conglomerate retroperitoneal adenopathy with nodes also seen in the periportal, portacaval and over the caval region. Nodes , pancreas and inferior vena cava but do not appear to invade. Numerous osseous lesions. Most recent head CT scan in 02/26/2018, age-appropriate cerebral and cerebellar atrophy. Chronic microvascular ischemic changes. Chronic infarcts in the left frontal, subcortical and deep white matter extending into the lateral basal ganglia as well as within the posterior right frontoparietal region. No acute intracranial abnormality seen. Bony scan performed in 05/2017 revealed new osseous metastatic disease in the axial skeleton. ASSESSMENT: 1. Abdominal pain. 2. 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 3. History of cerebrovascular accident with residual right hemiplegia with multiple ischemic infarcts on the most recent CT scan of the head. RECOMMENDATIONS: I reviewed the most recent echo in 12/2017, which revealed normal ejection fraction, normal segmental wall motion and mild aortic insufficiency. The EKG in 02/2018 revealed sinus bradycardia, otherwise unremarkable and the heart rate was 56. We will resume the patient's home medications which include amlodipine 10 mg once a day, gabapentin 300 mg twice a day, Casodex 60 mg daily, vitamin B complex one tablet twice a day, TriCor 48 mg daily, sertraline 100 mg daily, aspirin 81 mg once a day, Lipitor 20 mg once a day. I would request a GI consult from Dr. Jones. Kedar Mcgee MD [facility] # [id number]
[2018-04-23] MEDS: Enoxaparin 30 mg Syringe SC SCH (09:10)
[2018-04-23] MEDS: Sodium Chloride 0.9% 1,000 ML IV SCH (15:02)
[2018-04-23 15:04] LABS: INR 1.5
[2018-04-23 15:39] LABS: HEPATITIS B SURFACE AG Negative (NEGATIVE)
[2018-04-23 15:45] LABS: HEPATITIS A IGM NEGATIVE (NEGATIVE); HEPATITIS B CORE AB NEGATIVE (NEGATIVE)
[2018-04-23 15:56] LABS: HEPATITIS C ANTIBODY NEGATIVE (NEGATIVE)
[2018-04-23] MEDS: Sucralfate 1 gm/10 ml Oral Susp UD PO SCH ×2 (16:30→20:15)
--- NOTE | 2018-04-23 18:07 | PN ---
DATE: 04/23/2018 LOCATION: 369, bed B SUBJECTIVE: This is an 87-year-old male seen and examined initially for GI consultation on 04/22/2018. They examined again today in the presence of his , with persistent abdominal pain in the mid epigastric and mid abdominal line as well as lower abdominal pain with very poor appetite and several episodes of nonbloody vomiting with dysuria and discoloration of his urine, smells very strong as per the 's statement. The entire chart is reviewed including but not limited to the most recent lab and radiologist study results, current and previous medication list, current and previous medical events. Case discussed with the staff at length. Today's labs still pending; however, patient has low hemoglobin and hematocrit with low indices, highly suggestive of hypochromic microcytic anemia with elevated blood glucose level, total bilirubin 1.5, increased AST, ALT and alkaline phosphatase. Official report of recent lab and CAT scan of the abdomen and pelvis is seen with possible diffuse metastatic disease probably from his prostatic CA with retroperitoneal extensive adenopathy with displacement of the duodenum, pancreas and inferior vena cava, but not invading them. PHYSICAL EXAMINATION: GENERAL: An 87-year-old male, appeared to be awake, alert, afebrile with mild generalized jaundice. VITAL SIGNS: Heart rate of 70, respiratory rate 20-22, blood pressure 150/62. HEENT: Showed pale, dry mucous membrane. Nonicteric sclerae. LUNGS: Few scattered crepitation. Decreased air entry at bases. HEART: Positive S1 and S2. ABDOMEN: Soft, mildly distended with generalized tenderness. No mass or organomegaly. No rebound tenderness or guarding. IMPRESSION: 1. Re-exacerbation of peptic ulcer disease with episode of nausea and vomiting, there is a possibility of partial gastric outlet obstruction versus duodenal partial obstruction with rest pending on the outcome of the CAT scan of the abdomen. 2. Diffuse abdominal metastatic lesion. 3. Known history of but not limited to cerebrovascular accident with residual right hemiplegia as well as multiple ischemic infarcts on the CAT scan of the head. 4. No history of diverticulosis with partial colon resection. 5. Known history of diabetes mellitus, hypertension, hyperlipidemia, prostatic cancer with status post cholecystectomy and partial colon resection as per the . SUGGESTIONS: 1. Continue current management. 2. Due to abnormal CAT scan of the abdomen and pelvis, upper endoscopy should be scheduled and hyperalimentation to start. 3. Further recommendation to follow. Juan Carlos Mcpherson MD
--- NOTE | 2018-04-23 19:55 | CP.PCM.CON ---
History of Present Illness - History of Present Illness History of Present Illness: Reason For Consultation: Uncontrolled HTN HPI: 87F with hx of DM2, CVA, COPD admitted for abdominal pain and uncontrolled HTN 87 years old male presents to ED for complaints of dull and sometimes burning lower abdominal pain that began 4 days ago. Patient also reports dysuria and several episodes of non-bloody vomiting. Denies diarrhea or any other complaints. Chief Complaint (Nursing): Abdominal Pain History Per: Patient History/Exam Limitations: no limitations Onset/Duration Of Symptoms: Days (4) Current Symptoms Are (Timing): Still Present Location Of Pain/Discomfort: RLQ, LLQ Radiation Of Pain To:: None Quality Of Discomfort: Dull, Burning Associated Symptoms: Vomiting. denies: Fever, Chills, Diarrhea Exacerbating Factors: None Alleviating Factors: None Last Bowel Movement: Today Recent travel outside of the [place]: No Past Medical History Reviewed: Historical Data, Nursing Documentation, Vital Signs Vital Signs: Last Vital Signs Temp 98.7 F 04/22/18 06:55 Pulse 75 04/22/18 06:55 Resp 14 04/22/18 06:55 BP 157/82 H 04/22/18 06:55 Pulse Ox 98 04/22/18 06:55 - Medical History PMH: Arthritis, Asthma, Back Problems, COPD, CVA, Dementia, Diabetes, Diverticulitis, HTN, Hypercholesterolemia, Kidney Stones (05-11-13), Chronic Kidney Disease, TIA Surgical History: Cholecystectomy - [facility] Procedures REMOV URETERAL DRAIN (06/13/13) URETERAL CATHETERIZATION (05/11/13) Family History: States: Unknown Family Hx, Diabetes - Social History Hx Tobacco Use: No (Former smoker) Hx Alcohol Use: No Hx Substance Use: No - Immunization History Hx Tetanus Toxoid Vaccination: Yes Hx Influenza Vaccination: No Hx Pneumococcal Vaccination: Yes Review Of Systems Except As Marked, All Systems Reviewed And Found Negative. Constitutional: Negative for: Fever, Chills Gastrointestinal: Positive for: Vomiting (Non-bloody ), Abdominal Pain (Lower ). Negative for: Diarrhea, Constipation Genitourinary: Positive for: Dysuria. Negative for: Hematuria Skin: Negative for: Rash Neurological: Negative for: Weakness, Numbness Physical Exam - Physical Exam Appears: Non-toxic, No Acute Distress Skin: Normal Color, Warm, Dry, No Rash Head: Atraumatic, Normacephalic Eye(s): bilateral: Normal Inspection, PERRL, EOMI Oral Mucosa: Moist Neck: Normal ROM, Supple Chest: Symmetrical, No Tenderness Cardiovascular: Rhythm Regular Respiratory: Normal Breath Sounds, No Rales, No Rhonchi, No Wheezing Gastrointestinal/Abdominal: Soft, Tenderness (Suprapubic ), No Distention, No Guarding, No Rebound Extremity: Normal ROM Extremity: Bilateral: Atraumatic, Normal Color And Temperature, Normal ROM Pulses: Left Radial: Normal, Right Radial: Normal Neurological/Psych: Oriented x3, Normal Speech Gait: Steady Past Patient History - Infectious Disease Hx of Infectious Diseases: None - Tetanus Immunizations Tetanus Immunization: Unknown - Past Medical History & Family History Past Medical History?: Yes - Past Social History Smoking Status: Former Smoker - CARDIAC Hx Hypercholesterolemia: Yes Hx Hypertension: Yes - PULMONARY Hx Chronic Obstructive Pulmonary Disease (COPD): Yes - NEUROLOGICAL HX Cerebrovascular Accident: Yes Hx Dementia: Yes - HEENT Hx HEENT Problems: Yes Hx Epistaxis: Yes (chronic) - RENAL Hx Chronic Kidney Disease: Yes Hx Kidney Stones: Yes (05-11-13) - ENDOCRINE/METABOLIC Hx Endocrine Disorders: Yes Hx Diabetes Mellitus Type 2: Yes - HEMATOLOGICAL/ONCOLOGICAL Hx Blood Disorders: No - INTEGUMENTARY Hx Dermatological Problems: No - MUSCULOSKELETAL/RHEUMATOLOGICAL Hx Arthritis: Yes Hx Falls: No - GASTROINTESTINAL Hx Diverticulitis: Yes - GENITOURINARY/GYNECOLOGICAL Hx Genitourinary Disorders: Yes (kidney stones) - PSYCHIATRIC Hx Substance Use: No - SURGICAL HISTORY Hx Cholecystectomy: Yes - ANESTHESIA Hx Anesthesia: Yes Hx Anesthesia Reactions: No Hx Malignant Hyperthermia: No Meds Allergies/Adverse Reactions: Allergies Allergy/AdvReac Type Severity Reaction Status Date / Time No Known Allergies Allergy Verified 04/22/18 06:58 - Medications Medications: Current Medications Amlodipine Besylate (Norvasc) 10 mg PO DAILY [facility] Last Admin: 04/23/18 09:10 Dose: 10 mg Aspirin (Aspirin Chewable) 81 mg PO DAILY [facility] Last Admin: 04/23/18 09:10 Dose: 81 mg Enoxaparin Sodium (Lovenox) 30 mg SC DAILY [facility] Last Admin: 04/23/18 09:10 Dose: 30 mg Fenofibrate (Tricor) 48 mg PO QPM [facility] Last Admin: 04/23/18 17:54 Dose: 48 mg Gabapentin (Neurontin) 300 mg PO DAILY [facility] Last Admin: 04/23/18 09:10 Dose: 300 mg Sodium Chloride (Sodium Chloride 0.9%) 1,000 mls @ 80 mls/hr IV .[id number] [facility] Last Admin: 04/23/18 15:02 Dose: 80 mls/hr Ondansetron HCl (Zofran Inj) 4 mg IVP Q6H PRN PRN Reason: Nausea/Vomiting Last Admin: 04/22/18 20:31 Dose: 4 mg Sucralfate (Carafate Oral Susp) 1 gm PO ACBD [facility] Last Admin: 04/23/18 16:30 Dose: Not Given Results - Vital Signs Recent Vital Signs: Last Vital Signs Temp 98.7 F 04/23/18 15:00 Pulse 62 04/23/18 15:00 Resp 20 04/23/18 15:00 BP 146/78 04/23/18 15:00 Pulse Ox 94 L 04/23/18 15:00 - Labs Result Diagrams: 04/22/18 07:36 04/22/18 07:36 Labs: Laboratory Results - last 24 hr 04/23/18 04/23/18 04/23/18 14:52 14:52 14:52 PT 16.0 H INR 1.5 APTT 34 Alpha Fetoprotein 2.3 Carcinoembryonic Ag 9.2 H CA 19-9 Antigen 150 H Hepatitis A IgM Ab Hep Bs Antigen Hep B Core IgM Ab Hepatitis C Antibody 04/23/18 14:52 PT INR APTT Alpha Fetoprotein Carcinoembryonic Ag CA 19-9 Antigen Hepatitis A IgM Ab Negative Hep Bs Antigen Negative Hep B Core IgM Ab Negative Hepatitis C Antibody Negative Assessment & Plan - Assessment and Plan (Free Text) Assessment: 87F with hx of DM2, CVA, COPD admitted for abdominal pain and uncontrolled HTN Will monitor
--- NOTE | 2018-04-23 23:54 | CP.PCM.CON ---
History of Present Illness - History of Present Illness History of Present Illness: 87 year old male with a history of CVA, DM, HL, presenting with progressive abdominal pain, found to have radiographic evidence of metastatic malignancy. The patient notes to progressive lower abdominal pain, associated with decreased appetite and nausea. He does feel he is losing weight but cannot quantify. A CT A/P revealed bone lesions and retroperitoneal lymphadenopathy. Past medical history: DM, HL, CVA Past surgical history: Bowel surgery Family history: Denies hematologic and oncologic problems Social history: Former tobacco and alcohol Allergies: NKA Review of systems: All remaining review of systems including HEENT, cardiovascular, respiratory, gastrointestinal, genitourinary, musculoskeletal, dermatologic, neurologic, and psychiatric are negative unless mentioned in the HPI. Past Patient History - Infectious Disease Hx of Infectious Diseases: None - Tetanus Immunizations Tetanus Immunization: Unknown - Past Medical History & Family History Past Medical History?: Yes - Past Social History Smoking Status: Former Smoker - CARDIAC Hx Hypercholesterolemia: Yes Hx Hypertension: Yes - PULMONARY Hx Chronic Obstructive Pulmonary Disease (COPD): Yes - NEUROLOGICAL HX Cerebrovascular Accident: Yes Hx Dementia: Yes - HEENT Hx HEENT Problems: Yes Hx Epistaxis: Yes (chronic) - RENAL Hx Chronic Kidney Disease: Yes Hx Kidney Stones: Yes (05-11-13) - ENDOCRINE/METABOLIC Hx Endocrine Disorders: Yes Hx Diabetes Mellitus Type 2: Yes - HEMATOLOGICAL/ONCOLOGICAL Hx Blood Disorders: No - INTEGUMENTARY Hx Dermatological Problems: No - MUSCULOSKELETAL/RHEUMATOLOGICAL Hx Arthritis: Yes Hx Falls: No - GASTROINTESTINAL Hx Diverticulitis: Yes - GENITOURINARY/GYNECOLOGICAL Hx Genitourinary Disorders: Yes (kidney stones) - PSYCHIATRIC Hx Substance Use: No - SURGICAL HISTORY Hx Cholecystectomy: Yes - ANESTHESIA Hx Anesthesia: Yes Hx Anesthesia Reactions: No Hx Malignant Hyperthermia: No Meds Allergies/Adverse Reactions: Allergies Allergy/AdvReac Type Severity Reaction Status Date / Time No Known Allergies Allergy Verified 04/22/18 06:58 - Medications Medications: Current Medications Amlodipine Besylate (Norvasc) 10 mg PO DAILY [facility] Last Admin: 04/23/18 09:10 Dose: 10 mg Aspirin (Aspirin Chewable) 81 mg PO DAILY [facility] Last Admin: 04/23/18 09:10 Dose: 81 mg Enoxaparin Sodium (Lovenox) 30 mg SC DAILY [facility] Last Admin: 04/23/18 09:10 Dose: 30 mg Fenofibrate (Tricor) 48 mg PO QPM [facility] Last Admin: 04/23/18 17:54 Dose: 48 mg Gabapentin (Neurontin) 300 mg PO DAILY [facility] Last Admin: 04/23/18 09:10 Dose: 300 mg Sodium Chloride (Sodium Chloride 0.9%) 1,000 mls @ 80 mls/hr IV .[id number] [facility] Last Admin: 04/23/18 15:02 Dose: 80 mls/hr Ondansetron HCl (Zofran Inj) 4 mg IVP Q6H PRN PRN Reason: Nausea/Vomiting Last Admin: 04/22/18 20:31 Dose: 4 mg Sucralfate (Carafate Oral Susp) 1 gm PO ACBD [facility] Last Admin: 04/23/18 20:15 Dose: 1 gm Physical Exam - Head Exam Head Exam: ATRAUMATIC - Eye Exam Eye Exam: Normal appearance - ENT Exam ENT Exam: Mucous Membranes Dry - Respiratory Exam Respiratory Exam: NORMAL BREATHING PATTERN - Cardiovascular Exam Cardiovascular Exam: +S1, +S2 - GI/Abdominal Exam GI & Abdominal Exam: Normal Bowel Sounds - Neurological Exam Neurological exam: Oriented x3 - Psychiatric Exam Psychiatric exam: Normal Affect, Normal Mood - Skin Skin Exam: Warm Results - Vital Signs Recent Vital Signs: Last Vital Signs Temp 98.7 F 04/23/18 15:00 Pulse 62 04/23/18 15:00 Resp 20 04/23/18 15:00 BP 146/78 04/23/18 15:00 Pulse Ox 94 L 04/23/18 15:00 - Labs Result Diagrams: 04/22/18 07:36 04/22/18 07:36 Labs: Laboratory Results - last 24 hr 04/23/18 04/23/18 04/23/18 14:52 14:52 14:52 PT 16.0 H INR 1.5 APTT 34 Alpha Fetoprotein 2.3 Carcinoembryonic Ag 9.2 H CA 19-9 Antigen 150 H Hepatitis A IgM Ab Hep Bs Antigen Hep B Core IgM Ab Hepatitis C Antibody 04/23/18 14:52 PT INR APTT Alpha Fetoprotein Carcinoembryonic Ag CA 19-9 Antigen Hepatitis A IgM Ab Negative Hep Bs Antigen Negative Hep B Core IgM Ab Negative Hepatitis C Antibody Negative Assessment & Plan (1) Lymphadenopathy Assessment and Plan: retroperitoneal lymphadenopathy concerning for malignancy recommend IR evaluation for core biopsy of most accessible lesion Status: Acute (2) Bone lesion Assessment and Plan: concerning for metastatic disease if unable to biopsy LN then recommend IR biopsy of most accessible bone lesion Status: Acute (3) Anemia Assessment and Plan: retic count, b12, folate, ferritin, FOBT to further characterize Status: Acute (4) Coagulopathy Assessment and Plan: mild likely nutritional will give a dose of vit k Thank you for this interesting consult. Status: Acute
[2018-04-24] MEDS: Sodium Chloride 0.9% 1,000 ML IV SCH ×2 (04:27→15:45)
--- NOTE | 2018-04-24 07:36 | CP.PCM.PN ---
Subjective - Date & Time of Evaluation Date of Evaluation: 04/23/18 Time of Evaluation: 20:00 - Subjective Subjective: dicta Objective - Vital Signs/Intake and Output Vital Signs (last 24 hours): Temp Pulse Resp BP Pulse Ox 98.0 F 85 20 151/76 H 96 04/24/18 01:00 04/24/18 01:00 04/24/18 01:00 04/24/18 01:00 04/24/18 01:00 Intake and Output: 04/24/18 04/24/18 06:59 18:59 Intake Total 1680 Balance 1680 - Medications Medications: Current Medications Amlodipine Besylate (Norvasc) 10 mg PO DAILY [facility] Last Admin: 04/23/18 09:10 Dose: 10 mg Aspirin (Aspirin Chewable) 81 mg PO DAILY [facility] Last Admin: 04/23/18 09:10 Dose: 81 mg Enoxaparin Sodium (Lovenox) 30 mg SC DAILY [facility] Last Admin: 04/23/18 09:10 Dose: 30 mg Fenofibrate (Tricor) 48 mg PO QPM [facility] Last Admin: 04/23/18 17:54 Dose: 48 mg Gabapentin (Neurontin) 300 mg PO DAILY [facility] Last Admin: 04/23/18 09:10 Dose: 300 mg Sodium Chloride (Sodium Chloride 0.9%) 1,000 mls @ 80 mls/hr IV .[id number] [facility] Last Admin: 04/24/18 04:27 Dose: 80 mls/hr Ondansetron HCl (Zofran Inj) 4 mg IVP Q6H PRN PRN Reason: Nausea/Vomiting Last Admin: 04/24/18 04:26 Dose: 4 mg Phytonadione (Vitamin K Tab) 5 mg PO ONCE ONE Stop: 04/24/18 10:01 Sucralfate (Carafate Oral Susp) 1 gm PO ACBD [facility] Last Admin: 04/23/18 20:15 Dose: 1 gm - Labs Labs: 04/22/18 07:36 04/22/18 07:36 PT 16.0 SECONDS (9.7-12.2) H 04/23/18 14:52 INR 1.5 04/23/18 14:52 APTT 34 SECONDS (21-34) 04/23/18 14:52
[2018-04-24] MEDS: Sucralfate 1 gm/10 ml Oral Susp UD PO SCH ×2 (07:50→16:30)
[2018-04-24 09:21] LABS: FERRITIN 47.1 ng/mL
[2018-04-24 09:51] LABS: FOLATE > 20.0 ng/mL
[2018-04-24] MEDS ORDERED: Phytonadione 2.5 MG/0.5 TAB TAB PO ONE (10:00)
[2018-04-24] MEDS ORDERED: Lactated Ringer's 1,000 ML IV ONE (13:42)
[2018-04-24] MEDS ORDERED: Propofol 10 mg/ml Inj (20 ML) ONE (13:52)
[2018-04-24 15:08] VITALS: RESP 20
--- NOTE | 2018-04-24 22:27 | CP.PCM.PN ---
Subjective - Date & Time of Evaluation Date of Evaluation: 04/24/18 Time of Evaluation: 07:40 - Subjective Subjective: dictated Objective - Vital Signs/Intake and Output Vital Signs (last 24 hours): Temp Pulse Resp BP Pulse Ox 98.4 F 59 L 20 159/87 H 96 04/24/18 16:51 04/24/18 16:51 04/24/18 16:51 04/24/18 16:51 04/24/18 16:51 Intake and Output: 04/24/18 04/25/18 18:59 06:59 Intake Total 640 Balance 640 - Medications Medications: Current Medications Amlodipine Besylate (Norvasc) 10 mg PO DAILY [facility] Last Admin: 04/24/18 10:47 Dose: 10 mg Aspirin (Aspirin Chewable) 81 mg PO DAILY [facility] Last Admin: 04/24/18 10:50 Dose: Not Given Enoxaparin Sodium (Lovenox) 30 mg SC DAILY [facility] Last Admin: 04/23/18 09:10 Dose: 30 mg Fenofibrate (Tricor) 48 mg PO QPM [facility] Last Admin: 04/24/18 17:33 Dose: 48 mg Gabapentin (Neurontin) 300 mg PO DAILY [facility] Last Admin: 04/24/18 10:50 Dose: Not Given Sodium Chloride (Sodium Chloride 0.9%) 1,000 mls @ 80 mls/hr IV .[id number] [facility] Last Admin: 04/24/18 15:45 Dose: 80 mls/hr Losartan Potassium (Cozaar) 25 mg PO DAILY [facility] Last Admin: 04/24/18 15:29 Dose: 25 mg Ondansetron HCl (Zofran Inj) 4 mg IVP Q6H PRN PRN Reason: Nausea/Vomiting Last Admin: 04/24/18 04:26 Dose: 4 mg Sucralfate (Carafate Oral Susp) 1 gm PO ACBD [facility] Last Admin: 04/24/18 16:30 Dose: 1 gm - Labs Labs: 04/22/18 07:36 04/22/18 07:36 PT 16.0 SECONDS (9.7-12.2) H 04/23/18 14:52 INR 1.5 04/23/18 14:52 APTT 34 SECONDS (21-34) 04/23/18 14:52
--- NOTE | 2018-04-24 22:44 | CP.PCM.PN ---
Subjective - Date & Time of Evaluation Date of Evaluation: 04/24/18 Time of Evaluation: 19:00 - Subjective Subjective: Has pelvic discomfort Patient reports to ongoing prostate cancer treatment with Dr. Hicks ? progressive prostate cancer will check PSA and testosterone level urology evaluation Objective - Vital Signs/Intake and Output Vital Signs (last 24 hours): Temp Pulse Resp BP Pulse Ox 98.4 F 59 L 20 159/87 H 96 04/24/18 16:51 04/24/18 16:51 04/24/18 16:51 04/24/18 16:51 04/24/18 16:51 Intake and Output: 04/24/18 04/25/18 18:59 06:59 Intake Total 640 Balance 640 - Medications Medications: Current Medications Amlodipine Besylate (Norvasc) 10 mg PO DAILY [facility] Last Admin: 04/24/18 10:47 Dose: 10 mg Aspirin (Aspirin Chewable) 81 mg PO DAILY [facility] Last Admin: 04/24/18 10:50 Dose: Not Given Enoxaparin Sodium (Lovenox) 30 mg SC DAILY [facility] Last Admin: 04/23/18 09:10 Dose: 30 mg Fenofibrate (Tricor) 48 mg PO QPM [facility] Last Admin: 04/24/18 17:33 Dose: 48 mg Gabapentin (Neurontin) 300 mg PO DAILY [facility] Last Admin: 04/24/18 10:50 Dose: Not Given Sodium Chloride (Sodium Chloride 0.9%) 1,000 mls @ 80 mls/hr IV .[id number] [facility] Last Admin: 04/24/18 15:45 Dose: 80 mls/hr Losartan Potassium (Cozaar) 25 mg PO DAILY [facility] Last Admin: 04/24/18 15:29 Dose: 25 mg Ondansetron HCl (Zofran Inj) 4 mg IVP Q6H PRN PRN Reason: Nausea/Vomiting Last Admin: 04/24/18 04:26 Dose: 4 mg Sucralfate (Carafate Oral Susp) 1 gm PO ACBD [facility] Last Admin: 04/24/18 16:30 Dose: 1 gm - Labs Labs: 04/22/18 07:36 04/22/18 07:36 PT 16.0 SECONDS (9.7-12.2) H 04/23/18 14:52 INR 1.5 04/23/18 14:52 APTT 34 SECONDS (21-34) 04/23/18 14:52 - Head Exam Head Exam: ATRAUMATIC - Eye Exam Eye Exam: Normal appearance - ENT Exam ENT Exam: Mucous Membranes Dry - Respiratory Exam Respiratory Exam: NORMAL BREATHING PATTERN - Cardiovascular Exam Cardiovascular Exam: +S1, +S2 - GI/Abdominal Exam GI & Abdominal Exam: Normal Bowel Sounds Assessment and Plan (1) Lymphadenopathy Status: Acute (2) Bone lesion Status: Acute (3) Anemia Status: Acute (4) Coagulopathy Status: Acute
--- NOTE | 2018-04-24 23:45 | CP.PCM.CON ---
History of Present Illness - History of Present Illness History of Present Illness: UROLOGY CONSULTATION Past Patient History - Infectious Disease Hx of Infectious Diseases: None - Tetanus Immunizations Tetanus Immunization: Unknown - Past Medical History & Family History Past Medical History?: Yes - Past Social History Smoking Status: Former Smoker - CARDIAC Hx Hypercholesterolemia: Yes Hx Hypertension: Yes - PULMONARY Hx Chronic Obstructive Pulmonary Disease (COPD): Yes - NEUROLOGICAL HX Cerebrovascular Accident: Yes Hx Dementia: Yes - HEENT Hx HEENT Problems: Yes Hx Epistaxis: Yes (chronic) - RENAL Hx Chronic Kidney Disease: Yes Hx Kidney Stones: Yes (05-11-13) - ENDOCRINE/METABOLIC Hx Endocrine Disorders: Yes Hx Diabetes Mellitus Type 2: Yes - HEMATOLOGICAL/ONCOLOGICAL Hx Blood Disorders: No - INTEGUMENTARY Hx Dermatological Problems: No - MUSCULOSKELETAL/RHEUMATOLOGICAL Hx Arthritis: Yes Hx Falls: No - GASTROINTESTINAL Hx Diverticulitis: Yes - GENITOURINARY/GYNECOLOGICAL Hx Genitourinary Disorders: Yes (kidney stones) - PSYCHIATRIC Hx Substance Use: No - SURGICAL HISTORY Hx Cholecystectomy: Yes - ANESTHESIA Hx Anesthesia: Yes Hx Anesthesia Reactions: No Hx Malignant Hyperthermia: No Meds Allergies/Adverse Reactions: Allergies Allergy/AdvReac Type Severity Reaction Status Date / Time No Known Allergies Allergy Verified 04/22/18 06:58 - Medications Medications: Current Medications Amlodipine Besylate (Norvasc) 10 mg PO DAILY [facility] Last Admin: 04/24/18 10:47 Dose: 10 mg Aspirin (Aspirin Chewable) 81 mg PO DAILY [facility] Last Admin: 04/24/18 10:50 Dose: Not Given Enoxaparin Sodium (Lovenox) 30 mg SC DAILY [facility] Last Admin: 04/23/18 09:10 Dose: 30 mg Fenofibrate (Tricor) 48 mg PO QPM [facility] Last Admin: 04/24/18 17:33 Dose: 48 mg Gabapentin (Neurontin) 300 mg PO DAILY [facility] Last Admin: 04/24/18 10:50 Dose: Not Given Sodium Chloride (Sodium Chloride 0.9%) 1,000 mls @ 80 mls/hr IV .[id number] [facility] Last Admin: 04/24/18 15:45 Dose: 80 mls/hr Losartan Potassium (Cozaar) 25 mg PO DAILY [facility] Last Admin: 04/24/18 15:29 Dose: 25 mg Ondansetron HCl (Zofran Inj) 4 mg IVP Q6H PRN PRN Reason: Nausea/Vomiting Last Admin: 04/24/18 04:26 Dose: 4 mg Sucralfate (Carafate Oral Susp) 1 gm PO ACBD [facility] Last Admin: 04/24/18 16:30 Dose: 1 gm Results - Vital Signs Recent Vital Signs: Last Vital Signs Temp 98.4 F 04/24/18 16:51 Pulse 59 L 04/24/18 16:51 Resp 20 04/24/18 16:51 BP 159/87 H 04/24/18 16:51 Pulse Ox 96 04/24/18 16:51 - Labs Result Diagrams: 04/22/18 07:36 04/22/18 07:36 Labs: Laboratory Results - last 24 hr 04/24/18 04/24/18 04/24/18 07:52 08:20 08:20 Retic Count 1.6 H POC Glucose (mg/dL) 182 H Ferritin 47.1 Vitamin B12 > 1000 H Folate > 20.0 Assessment & Plan - Assessment and Plan (Free Text) Assessment: IMP: Prostate carcinoma, metastatic Abdominal pain Hx of CVA full note t/f YS - Date & Time Date: 04/24/18 Time: 10:35
--- NOTE | 2018-04-25 00:09 | CP.PCM.PN ---
Subjective - Date & Time of Evaluation Date of Evaluation: 04/24/18 Time of Evaluation: 17:20 - Subjective Subjective: patient seen and evaluated Denies chest pain and dyspnea Review Of Systems Except As Marked, All Systems Reviewed And Found Negative. Constitutional: Negative for: Fever, Chills Gastrointestinal: Positive for: Vomiting (Non-bloody ), Abdominal Pain (Lower ). Negative for: Diarrhea, Constipation Genitourinary: Positive for: Dysuria. Negative for: Hematuria Skin: Negative for: Rash Neurological: Negative for: Weakness, Numbness Physical Exam - Physical Exam Appears: Non-toxic, No Acute Distress Skin: Normal Color, Warm, Dry, No Rash Head: Atraumatic, Normacephalic Eye(s): bilateral: Normal Inspection, PERRL, EOMI Oral Mucosa: Moist Neck: Normal ROM, Supple Chest: Symmetrical, No Tenderness Cardiovascular: Rhythm Regular Respiratory: Normal Breath Sounds, No Rales, No Rhonchi, No Wheezing Gastrointestinal/Abdominal: Soft, Tenderness (Suprapubic ), No Distention, No Guarding, No Rebound Extremity: Normal ROM Extremity: Bilateral: Atraumatic, Normal Color And Temperature, Normal ROM Pulses: Left Radial: Normal, Right Radial: Normal Neurological/Psych: Oriented x3, Normal Speech Gait: Steady Assessment & Plan - Assessment and Plan (Free Text) Assessment: 87F with hx of DM2, CVA, COPD admitted for abdominal pain and uncontrolled HTN Will monitor Objective - Vital Signs/Intake and Output Vital Signs (last 24 hours): Temp Pulse Resp BP Pulse Ox 98.5 F 60 20 162/77 H 95 04/24/18 23:57 04/24/18 23:57 04/24/18 23:57 04/24/18 23:57 04/24/18 23:57 Intake and Output: 04/24/18 04/25/18 18:59 06:59 Intake Total 640 Balance 640 - Medications Medications: Current Medications Amlodipine Besylate (Norvasc) 10 mg PO DAILY [facility] Last Admin: 04/24/18 10:47 Dose: 10 mg Aspirin (Aspirin Chewable) 81 mg PO DAILY [facility] Last Admin: 04/24/18 10:50 Dose: Not Given Enoxaparin Sodium (Lovenox) 30 mg SC DAILY [facility] Last Admin: 04/23/18 09:10 Dose: 30 mg Fenofibrate (Tricor) 48 mg PO QPM [facility] Last Admin: 04/24/18 17:33 Dose: 48 mg Gabapentin (Neurontin) 300 mg PO DAILY [facility] Last Admin: 04/24/18 10:50 Dose: Not Given Sodium Chloride (Sodium Chloride 0.9%) 1,000 mls @ 80 mls/hr IV .[id number] [facility] Last Admin: 04/24/18 15:45 Dose: 80 mls/hr Losartan Potassium (Cozaar) 25 mg PO DAILY [facility] Last Admin: 04/24/18 15:29 Dose: 25 mg Ondansetron HCl (Zofran Inj) 4 mg IVP Q6H PRN PRN Reason: Nausea/Vomiting Last Admin: 04/24/18 04:26 Dose: 4 mg Sucralfate (Carafate Oral Susp) 1 gm PO ACBD [facility] Last Admin: 04/24/18 16:30 Dose: 1 gm - Labs Labs: 04/22/18 07:36 04/22/18 07:36 PT 16.0 SECONDS (9.7-12.2) H 04/23/18 14:52 INR 1.5 04/23/18 14:52 APTT 34 SECONDS (21-34) 04/23/18 14:52
--- NOTE | 2018-04-25 03:18 | PN ---
DATE: 04/24/2018 SUBJECTIVE: The patient has occasional nausea. He has abdominal pain. He was seeing Urology. No fever. No chills. No chest pain. No cough. PHYSICAL EXAMINATION: VITAL SIGNS: Blood pressure 159/87, pulse 59, respiratory rate 20, temperature 98.4. LUNGS: Clear. No rales. No rhonchi. CARDIOVASCULAR SYSTEM: S1 and S2, regular. ABDOMEN: Distended, bowel sounds are present, nontender. ASSESSMENT: 1. Prostatic cancer with metastasis. The patient has extensive disease within the pelvis. Negative urine culture. 2. Type 2 diabetes. 3. Hypertension. PLAN: Pain management. Nausea control. GI evaluation. Monitor the patient. Cliff Bach MD
[2018-04-25] MEDS: Sodium Chloride 0.9% 1,000 ML IV SCH ×2 (05:40→16:18)
[2018-04-25] MEDS: Sucralfate 1 gm/10 ml Oral Susp UD PO SCH ×2 (07:50→17:02)
[2018-04-25 08:32] LABS: TESTOSTERONE 11.4 ng/mL
[2018-04-25] MEDS: Bisacodyl 5mg EC Tab PO SCH (10:40)
[2018-04-25 12:01] LABS: BASO # 0.1 K/uL (0.0-0.2); BASO % 1.6 % (0.0-2.0); EOS # 0.2 K/uL (0.0-0.7); EOS % 4.5 % (0.0-4.0); HEMOGLOBIN 9.9 g/dL (12.0-18.0); LYMPH # 0.5 K/uL (1.0-4.3); LYMPH % 12.3 % (20.0-40.0); MEAN CELL VOLUME 79.9 fL (80.0-94.0); MEAN CORPUSCULAR HGB CONC 31.2 g/dL (33.0-37.0); MEAN PLATELET VOLUME 7.8 fL (7.2-11.7); MONO # 0.3 K/uL (0.0-0.8); MONO % 6.7 % (0.0-10.0); NEUT # 3.2 K/uL (1.8-7.0); NEUT % 74.9 % (50.0-75.0); NRBC % 0.1 % (0.0-2.0); RBC 3.98 Mil/uL (4.40-5.90); RED CELL DISTRIBUTION WIDTH 22.3 % (11.5-14.5); WHITE BLOOD COUNT 4.3 K/uL (4.8-10.8)
[2018-04-25 13:08] LABS: ALB/GLOB RATIO 1.1 (1.0-2.1); ALBUMIN 3.8 g/dL (3.5-5.0); ALT/SGPT 140 U/L (21-72); AST/SGOT 166 U/L (17-59); BLOOD UREA NITROGEN 14 mg/dL (9-20); CALCIUM 9.4 mg/dl (8.6-10.4); GFR NON-AFRICAN AMERICAN > 60
--- NOTE | 2018-04-25 21:26 | CP.PCM.PN ---
Subjective - Date & Time of Evaluation Date of Evaluation: 04/25/18 Time of Evaluation: 09:40 - Subjective Subjective: dictated Objective - Vital Signs/Intake and Output Vital Signs (last 24 hours): Temp Pulse Resp BP Pulse Ox 98.5 F 66 20 177/82 H 98 04/25/18 16:00 04/25/18 16:00 04/25/18 16:00 04/25/18 16:00 04/25/18 16:00 Intake and Output: 04/25/18 04/26/18 18:59 06:59 Intake Total 860 Balance 860 - Medications Medications: Current Medications Amlodipine Besylate (Norvasc) 10 mg PO DAILY [facility] Last Admin: 04/25/18 09:27 Dose: 10 mg Aspirin (Aspirin Chewable) 81 mg PO DAILY [facility] Last Admin: 04/25/18 09:27 Dose: 81 mg Bisacodyl (Dulcolax) 10 mg PO Q24H [facility] Last Admin: 04/25/18 10:40 Dose: Not Given Enoxaparin Sodium (Lovenox) 30 mg SC DAILY [facility] Last Admin: 04/23/18 09:10 Dose: 30 mg Fenofibrate (Tricor) 48 mg PO QPM [facility] Last Admin: 04/25/18 17:02 Dose: 48 mg Gabapentin (Neurontin) 300 mg PO DAILY [facility] Last Admin: 04/25/18 09:27 Dose: 300 mg Sodium Chloride (Sodium Chloride 0.9%) 1,000 mls @ 80 mls/hr IV .[id number] [facility] Last Admin: 04/25/18 16:18 Dose: Not Given Losartan Potassium (Cozaar) 25 mg PO DAILY [facility] Last Admin: 04/25/18 09:27 Dose: 25 mg Ondansetron HCl (Zofran Inj) 4 mg IVP Q6H PRN PRN Reason: Nausea/Vomiting Last Admin: 04/24/18 04:26 Dose: 4 mg Sucralfate (Carafate Oral Susp) 1 gm PO ACBD [facility] Last Admin: 04/25/18 17:02 Dose: 1 gm - Labs Labs: 04/25/18 11:53 04/25/18 11:53 PT 16.0 SECONDS (9.7-12.2) H 04/23/18 14:52 INR 1.5 04/23/18 14:52 APTT 34 SECONDS (21-34) 04/23/18 14:52
--- NOTE | 2018-04-25 21:42 | PN ---
DATE: 04/25/2018 LOCATION: 369, bed B SUBJECTIVE: This is an 87-year-old male post upper endoscopy with biopsy seen and examined in rounds without any significant clinical changes or active GI bleeding, tolerating full liquid diet. The entire chart is reviewed including but not limited to the most recent lab and radiology study results, current and previous medication list and today's lab results still pending, but blood glucose level of 318. The patient still has mild jaundice with persistently elevated liver function test but negative hepatitis profile with prostatic specific antigen of 318, increased CEA level to 9.2, CA 19 - 9 to 150, the possibility of again GI cancerous lesion was raised. PHYSICAL EXAMINATION: GENERAL: An 87-year-old male, awake, alert and oriented, but with mild generalized weakness. VITAL SIGNS: Afebrile with pulse of 70, respiratory 20-22, blood pressure 142/68. HEENT: Showed pale dry oral mucous membrane. Nonicteric sclerae. LUNGS: Few scattered crepitation. Decreased air entry at bases. HEART: Positive S1 and S2. ABDOMEN: Soft with mild generalized tenderness. No mass or organomegaly. No rebound tenderness or guarding, but midepigastric midline and lower abdominal tenderness. EXTREMITIES: Without significant clubbing, cyanosis or edema. No reported new neurological deficits, sensory or motor. IMPRESSION: 1. Prostatic cancer with mets. 2. Lymphadenopathy secondary to above. 3. Anemia with elevated CEA level. The possibility of lower gastrointestinal tract recurrent cancer was raised. 4. Re-exacerbation of peptic ulcer disease with gastric ulcers. 5. Reported history of diverticulosis with partial colon resection secondary to it. 6. Poorly controlled hypertension, diabetes mellitus, hyperlipidemia with status post cholecystectomy. SUGGESTIONS: 1. Continue current management. 2. The patient will need colonoscopy after adequate preparation that to be discussed with the Oncology/Hematology freight traffic consultant on the case. 3. Further recommendation to follow and serum lipase, amylase level to be ordered. Juan Carlos Mcpherson MD
--- NOTE | 2018-04-25 22:30 | CP.PCM.PN ---
Subjective - Date & Time of Evaluation Date of Evaluation: 04/25/18 Time of Evaluation: 14:25 - Subjective Subjective: patient seen and evaluated Denies chest pain and dyspnea Hemodynamically stable Review Of Systems Except As Marked, All Systems Reviewed And Found Negative. Constitutional: Negative for: Fever, Chills Gastrointestinal: Positive for: Vomiting (Non-bloody ), Abdominal Pain (Lower ). Negative for: Diarrhea, Constipation Genitourinary: Positive for: Dysuria. Negative for: Hematuria Skin: Negative for: Rash Neurological: Negative for: Weakness, Numbness Physical Exam - Physical Exam Appears: Non-toxic, No Acute Distress Skin: Normal Color, Warm, Dry, No Rash Head: Atraumatic, Normacephalic Eye(s): bilateral: Normal Inspection, PERRL, EOMI Oral Mucosa: Moist Neck: Normal ROM, Supple Chest: Symmetrical, No Tenderness Cardiovascular: Rhythm Regular Respiratory: Normal Breath Sounds, No Rales, No Rhonchi, No Wheezing Gastrointestinal/Abdominal: Soft, Tenderness (Suprapubic ), No Distention, No Guarding, No Rebound Extremity: Normal ROM Extremity: Bilateral: Atraumatic, Normal Color And Temperature, Normal ROM Pulses: Left Radial: Normal, Right Radial: Normal Neurological/Psych: Oriented x3, Normal Speech Gait: Steady Assessment & Plan - Assessment and Plan (Free Text) Assessment: 87F with hx of DM2, CVA, COPD admitted for abdominal pain and uncontrolled HTN Continue current BP meds Objective - Vital Signs/Intake and Output Vital Signs (last 24 hours): Temp Pulse Resp BP Pulse Ox 98.5 F 66 20 177/82 H 98 04/25/18 16:00 04/25/18 16:00 04/25/18 16:00 04/25/18 16:00 04/25/18 16:00 Intake and Output: 04/25/18 04/26/18 18:59 06:59 Intake Total 860 Balance 860 - Medications Medications: Current Medications Amlodipine Besylate (Norvasc) 10 mg PO DAILY [facility] Last Admin: 04/25/18 09:27 Dose: 10 mg Aspirin (Aspirin Chewable) 81 mg PO DAILY [facility] Last Admin: 04/25/18 09:27 Dose: 81 mg Bisacodyl (Dulcolax) 10 mg PO Q24H [facility] Last Admin: 04/25/18 10:40 Dose: Not Given Enoxaparin Sodium (Lovenox) 30 mg SC DAILY [facility] Last Admin: 04/23/18 09:10 Dose: 30 mg Fenofibrate (Tricor) 48 mg PO QPM [facility] Last Admin: 04/25/18 17:02 Dose: 48 mg Gabapentin (Neurontin) 300 mg PO DAILY [facility] Last Admin: 04/25/18 09:27 Dose: 300 mg Sodium Chloride (Sodium Chloride 0.9%) 1,000 mls @ 80 mls/hr IV .[id number] [facility] Last Admin: 04/25/18 16:18 Dose: Not Given Losartan Potassium (Cozaar) 25 mg PO DAILY [facility] Last Admin: 04/25/18 09:27 Dose: 25 mg Ondansetron HCl (Zofran Inj) 4 mg IVP Q6H PRN PRN Reason: Nausea/Vomiting Last Admin: 04/24/18 04:26 Dose: 4 mg Sucralfate (Carafate Oral Susp) 1 gm PO ACBD [facility] Last Admin: 04/25/18 17:02 Dose: 1 gm - Labs Labs: 04/25/18 11:53 04/25/18 11:53 PT 16.0 SECONDS (9.7-12.2) H 04/23/18 14:52 INR 1.5 04/23/18 14:52 APTT 34 SECONDS (21-34) 04/23/18 14:52
--- NOTE | 2018-04-25 22:31 | CP.PCM.PN ---
Subjective - Date & Time of Evaluation Date of Evaluation: 04/25/18 Time of Evaluation: 19:00 - Subjective Subjective: Has pelvic pain Objective - Vital Signs/Intake and Output Vital Signs (last 24 hours): Temp Pulse Resp BP Pulse Ox 98.5 F 66 20 177/82 H 98 04/25/18 16:00 04/25/18 16:00 04/25/18 16:00 04/25/18 16:00 04/25/18 16:00 Intake and Output: 04/25/18 04/26/18 18:59 06:59 Intake Total 860 Balance 860 - Medications Medications: Current Medications Amlodipine Besylate (Norvasc) 10 mg PO DAILY [facility] Last Admin: 04/25/18 09:27 Dose: 10 mg Aspirin (Aspirin Chewable) 81 mg PO DAILY [facility] Last Admin: 04/25/18 09:27 Dose: 81 mg Bisacodyl (Dulcolax) 10 mg PO Q24H [facility] Last Admin: 04/25/18 10:40 Dose: Not Given Enoxaparin Sodium (Lovenox) 30 mg SC DAILY [facility] Last Admin: 04/23/18 09:10 Dose: 30 mg Fenofibrate (Tricor) 48 mg PO QPM [facility] Last Admin: 04/25/18 17:02 Dose: 48 mg Gabapentin (Neurontin) 300 mg PO DAILY [facility] Last Admin: 04/25/18 09:27 Dose: 300 mg Sodium Chloride (Sodium Chloride 0.9%) 1,000 mls @ 80 mls/hr IV .[id number] [facility] Last Admin: 04/25/18 16:18 Dose: Not Given Losartan Potassium (Cozaar) 25 mg PO DAILY [facility] Last Admin: 04/25/18 09:27 Dose: 25 mg Ondansetron HCl (Zofran Inj) 4 mg IVP Q6H PRN PRN Reason: Nausea/Vomiting Last Admin: 04/24/18 04:26 Dose: 4 mg Sucralfate (Carafate Oral Susp) 1 gm PO ACBD [facility] Last Admin: 04/25/18 17:02 Dose: 1 gm - Labs Labs: 04/25/18 11:53 04/25/18 11:53 PT 16.0 SECONDS (9.7-12.2) H 04/23/18 14:52 INR 1.5 04/23/18 14:52 APTT 34 SECONDS (21-34) 04/23/18 14:52 - Head Exam Head Exam: ATRAUMATIC - Eye Exam Eye Exam: Normal appearance - ENT Exam ENT Exam: Mucous Membranes Dry - Respiratory Exam Respiratory Exam: NORMAL BREATHING PATTERN - Cardiovascular Exam Cardiovascular Exam: +S1, +S2 - GI/Abdominal Exam GI & Abdominal Exam: Normal Bowel Sounds Assessment and Plan (1) Prostate cancer Assessment & Plan: bone and lymph node metastasis noted elevated CEA - GI w/u in progress testosterone at castrate level with worsening disease; 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 Lupron with urology Status: Acute (2) Anemia Assessment & Plan: borderline iron stores with elevated CEA GI w/u in progress will start IV iron Status: Acute (3) Coagulopathy Status: Acute
--- NOTE | 2018-04-26 00:11 | PCM.URO ---
Urology Progress Note - General General: Tolerating Diet - Subjective Abdominal Pain: Yes (lower abd pain) Flank Pain: No Nausea: No Vomiting: No Voiding Well: Yes Hematuria: No Good Stream: Yes Dsypnea: No Chest Pain: No Fever & Chills: No - Objective Lab Studies: Reviewed (PSA= 318 T=11) Lab Results Last 24 Hours: Laboratory Results - last 24 hr 04/25/18 04/25/18 04/25/18 06:24 11:53 11:53 WBC 4.3 L RBC 3.98 L Hgb 9.9 L Hct 31.8 L MCV 79.9 L MCH 25.0 L MCHC 31.2 L RDW 22.3 H Plt Count 412 H MPV 7.8 Neut % (Auto) 74.9 Lymph % (Auto) 12.3 L Wise % (Auto) 6.7 Eos % (Auto) 4.5 H Baso % (Auto) 1.6 Neut # (Auto) 3.2 Lymph # (Auto) 0.5 L Wise # (Auto) 0.3 Eos # (Auto) 0.2 Baso # (Auto) 0.1 Sodium 136 Potassium 3.6 Chloride 100 Carbon Dioxide 27 Anion Gap 12 BUN 14 Creatinine 1.1 Est GFR ( Amer) > 60 Est GFR (Non-Af Amer) > 60 Random Glucose 295 H D Calcium 9.4 Phosphorus 2.3 L Magnesium 1.9 Total Bilirubin 1.8 H AST 166 H D ALT 140 H D Alkaline Phosphatase 662 H Total Protein 7.2 Albumin 3.8 Globulin 3.4 Albumin/Globulin Ratio 1.1 Prostate Specific Ag 318 H Testosterone Level 11.4 Stool Occult Blood 04/25/18 12:52 WBC RBC Hgb Hct MCV MCH MCHC RDW Plt Count MPV Neut % (Auto) Lymph % (Auto) Wise % (Auto) Eos % (Auto) Baso % (Auto) Neut # (Auto) Lymph # (Auto) Wise # (Auto) Eos # (Auto) Baso # (Auto) Sodium Potassium Chloride Carbon Dioxide Anion Gap BUN Creatinine Est GFR ( Amer) Est GFR (Non-Af Amer) Random Glucose Calcium Phosphorus Magnesium Total Bilirubin AST ALT Alkaline Phosphatase Total Protein Albumin Globulin Albumin/Globulin Ratio Prostate Specific Ag Testosterone Level Stool Occult Blood Positive H Intake & Output: Intake & Output 04/25/18 04/25/18 04/26/18 06:59 18:59 06:59 Intake Total 740 860 880 Balance 740 860 880 Intake: Intake, IV Amount 640 860 640 Left Hand 640 860 640 Oral 100 240 Other: # Voids Urine, Voided 2 4 # Bowel Movements 1 4 Vital Signs: Vital Signs - 24 hr 04/25/18 04/25/18 08:06 16:00 Temperature 97.3 F L 98.5 F Pulse Rate 73 66 Respiratory 20 20 Rate Blood Pressure 145/69 177/82 H O2 Sat by Pulse 96 98 Oximetry - Physical Exam Abdominal Exam: Soft, Non-Distended. absent: Non-Tender Bowel Sounds: Normal Back: No CVA Tenderness Genitalia: Without Inflammation Urine Color: Clear, Yellow - Plan Additional Information: IMP: rise of PSA, while on leuprolide. abd pain. Metastatic prostate ca. Castrate resistant prostate ca. P/rec: secondary hormonla therapy and/or chemotherapy for CRPC. YS - Date & Time of Note Date: 04/25/18 Time: 08:40
[2018-04-26] MEDS: Dextrose 5%/0.9% NS 1,000 ML IV SCH ×2 (00:37→16:25)
--- NOTE | 2018-04-26 01:51 | PN ---
DATE: 04/25/2018 SUBJECTIVE: The patient, Juarez Cooper, has positive . He denies any shortness of breath or chest pain. He denies any nausea or vomiting. He has been seen by Oncology. PHYSICAL EXAMINATION: VITAL SIGNS: Blood pressure 177/82, pulse 66, respiratory rate 20, temperature 98.5. LUNGS: Clear. CARDIOVASCULAR SYSTEM: S1, S2 regular. ABDOMEN: Distended. ASSESSMENT: 1. Prostate cancer, locally recurrent disease with metastasis. 2. Gastrointestinal bleed. 3. Hypertension. 4. Chronic kidney disease. PLAN: Continue Protonix. Repeat hemoglobin tomorrow morning. Pain control. Nausea control. The patient needs blood transfusion, and if the patient's H and H dropped, the patient will need endoscopy and colonoscopy. Monitor the patient. Cliff Bach MD
[2018-04-26] MEDS: Sucralfate 1 gm/10 ml Oral Susp UD PO SCH ×2 (08:21→17:37)
[2018-04-26] MEDS: Ferric Sodium Gluconat Complex 62.5 mg/5 ml Vial IVPB SCH (09:43)
[2018-04-26] MEDS: Bisacodyl 5mg EC Tab PO SCH (09:48)
[2018-04-26 11:31] LABS: EOS # 0.1 K/uL (0.0-0.7); MONO # 0.5 K/uL (0.0-0.8); RBC 4.17 Mil/uL (4.40-5.90)
[2018-04-26 11:38] LABS: BASO % 0.8 % (0.0-2.0); EOS % 2.2 % (0.0-4.0); HEMOGLOBIN 10.4 g/dL (12.0-18.0); LYMPH # 0.8 K/uL (1.0-4.3); LYMPH % 13.2 % (20.0-40.0); MEAN CELL VOLUME 79.7 fL (80.0-94.0); MEAN CORPUSCULAR HEMOGLOBIN 24.9 pg (27.0-31.0); MEAN CORPUSCULAR HGB CONC 31.3 g/dL (33.0-37.0); MEAN PLATELET VOLUME 8.2 fL (7.2-11.7); MONO % 8.2 % (0.0-10.0); NEUT # 4.7 K/uL (1.8-7.0); NEUT % 75.6 % (50.0-75.0); WHITE BLOOD COUNT 6.2 K/uL (4.8-10.8)
[2018-04-26 11:45] LABS: BLOOD UREA NITROGEN 12 mg/dL (9-20); CALCIUM 9.5 mg/dl (8.6-10.4); GFR NON-AFRICAN AMERICAN > 60
--- NOTE | 2018-04-26 14:21 | PN ---
DATE: 04/26/2018 LOCATION: 369, bed B. SUBJECTIVE: This is an 87-year-old male, post upper endoscopy recently, seen and examined early in rounds without significant clinical changes with reported episodes of diarrhea. Most recent lab result showed subsequent low hemoglobin and hematocrit with low indices highly suggestive of hypochromic microcytic anemia with abnormal liver function. Stool for occult blood reported to be positive. PHYSICAL EXAMINATION: GENERAL: An 87-year-old male. VITAL SIGNS: Afebrile, respiratory rate of 20 to 22, blood pressure 162/72. HEENT: Showed pale, dry oral mucous membrane. Nonicteric sclerae. LUNGS: Scattered mild crepitation with decreased air entry at bases. HEART: Positive S1 and S2 with a rate of 74. ABDOMEN: Soft with generalized tenderness. Bowel sounds are hyperactive. No mass or organomegaly. No rebound tenderness or guarding. EXTREMITIES: Without significant clubbing, cyanosis or edema. NEUROLOGIC: No reported new neurological deficits, sensory or motor. No reported new focal deficits. On record, the patient still have lower abdominal pain and tenderness. IMPRESSION: 1. Re-exacerbation of peptic ulcer disease. 2. Metastatic prostatic carcinoma. 3. 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 4. Re-exacerbation of peptic ulcer disease with gastric ulcer, nonbleeding. 5. Reported history of diverticulosis with partial colon resection before, with possible recurrent early stage of acute pancreatitis due to the patient's recurrent complaint of lower abdominal pain. 6. Poorly controlled diabetes mellitus, hypertension with hyperlipidemia. SUGGESTION: 1. Continue current management. 2. Stool for C. diff. 3. The patient will need colonoscopy after adequate preparation that to be discussed with the admitting medical team. Juan Carlos Mcpherson MD
[2018-04-26] MEDS ORDERED: Potassium Chloride 20 mEq ER Tab PO ONE (18:00)
--- NOTE | 2018-04-27 01:27 | CP.PCM.PN ---
Subjective - Date & Time of Evaluation Date of Evaluation: 04/26/18 Time of Evaluation: 16:20 - Subjective Subjective: Patient seen and evaluated No cardiac events noted Review Of Systems Except As Marked, All Systems Reviewed And Found Negative. Constitutional: Negative for: Fever, Chills Gastrointestinal: Positive for: Vomiting (Non-bloody ), Abdominal Pain (Lower ). Negative for: Diarrhea, Constipation Genitourinary: Positive for: Dysuria. Negative for: Hematuria Skin: Negative for: Rash Neurological: Negative for: Weakness, Numbness Physical Exam - Physical Exam Appears: Non-toxic, No Acute Distress Skin: Normal Color, Warm, Dry, No Rash Head: Atraumatic, Normacephalic Eye(s): bilateral: Normal Inspection, PERRL, EOMI Oral Mucosa: Moist Neck: Normal ROM, Supple Chest: Symmetrical, No Tenderness Cardiovascular: Rhythm Regular Respiratory: Normal Breath Sounds, No Rales, No Rhonchi, No Wheezing Gastrointestinal/Abdominal: Soft, Tenderness (Suprapubic ), No Distention, No Guarding, No Rebound Extremity: Normal ROM Extremity: Bilateral: Atraumatic, Normal Color And Temperature, Normal ROM Pulses: Left Radial: Normal, Right Radial: Normal Neurological/Psych: Oriented x3, Normal Speech Gait: Steady Assessment & Plan - Assessment and Plan (Free Text) Assessment: 87F with hx of DM2, CVA, COPD admitted for abdominal pain and uncontrolled HTN Continue current BP meds Objective - Vital Signs/Intake and Output Vital Signs (last 24 hours): Temp Pulse Resp BP Pulse Ox 97.9 F 68 20 149/72 96 04/27/18 00:08 04/27/18 00:08 04/27/18 00:08 04/27/18 00:08 04/27/18 00:08 Intake and Output: 04/26/18 04/27/18 18:59 06:59 Intake Total 1530 880 Output Total 1 Balance 1530 879 - Medications Medications: Current Medications Amlodipine Besylate (Norvasc) 10 mg PO DAILY [facility] Last Admin: 04/26/18 09:42 Dose: 10 mg Aspirin (Aspirin Chewable) 81 mg PO DAILY [facility] Last Admin: 04/26/18 09:42 Dose: 81 mg Bisacodyl (Dulcolax) 10 mg PO Q24H [facility] Last Admin: 04/26/18 09:48 Dose: 10 mg Enoxaparin Sodium (Lovenox) 30 mg SC DAILY [facility] Last Admin: 04/23/18 09:10 Dose: 30 mg Fenofibrate (Tricor) 48 mg PO QPM [facility] Last Admin: 04/26/18 22:11 Dose: 48 mg Ferric Sodium Gluconate Complex (Ferrlecit) 125 mg IVPB DAILY [facility] Stop: 05/04/18 10:01 Last Admin: 04/26/18 09:43 Dose: 125 mg Gabapentin (Neurontin) 300 mg PO DAILY [facility] Last Admin: 04/26/18 09:42 Dose: 300 mg Dextrose/Sodium Chloride (Dextrose 5%/0.9% Ns 1000 Ml) 1,000 mls @ 60 mls/hr IV .[id number] [facility] Last Admin: 04/26/18 16:25 Dose: Not Given Losartan Potassium (Cozaar) 25 mg PO DAILY [facility] Last Admin: 04/26/18 09:42 Dose: 25 mg Ondansetron HCl (Zofran Inj) 4 mg IVP Q6H PRN PRN Reason: Nausea/Vomiting Last Admin: 04/24/18 04:26 Dose: 4 mg Sucralfate (Carafate Oral Susp) 1 gm PO ACBD [facility] Last Admin: 04/26/18 17:37 Dose: 1 gm - Labs Labs: 04/26/18 11:19 04/26/18 11:19 PT 16.0 SECONDS (9.7-12.2) H 04/23/18 14:52 INR 1.5 04/23/18 14:52 APTT 34 SECONDS (21-34) 04/23/18 14:52
[2018-04-27] MEDS: Sucralfate 1 gm/10 ml Oral Susp UD PO SCH ×2 (07:38→16:54)
[2018-04-27 08:02] LABS: ALB/GLOB RATIO 1.1 (1.0-2.1); ALBUMIN 3.9 g/dL (3.5-5.0); ALT/SGPT 104 U/L (21-72); AST/SGOT 85 U/L (17-59); BLOOD UREA NITROGEN 13 mg/dL (9-20); GFR NON-AFRICAN AMERICAN > 60
--- NOTE | 2018-04-27 08:26 | CP.PCM.PN ---
Subjective - Date & Time of Evaluation Date of Evaluation: 04/26/18 Time of Evaluation: 07:00 - Subjective Subjective: dcitated Objective - Vital Signs/Intake and Output Vital Signs (last 24 hours): Temp Pulse Resp BP Pulse Ox 98 F 65 20 172/78 H 95 04/27/18 08:00 04/27/18 08:00 04/27/18 08:00 04/27/18 08:00 04/27/18 08:00 Intake and Output: 04/27/18 04/27/18 06:59 18:59 Intake Total 880 Output Total 2 Balance 878 - Medications Medications: Current Medications Amlodipine Besylate (Norvasc) 10 mg PO DAILY [facility] Last Admin: 04/26/18 09:42 Dose: 10 mg Aspirin (Aspirin Chewable) 81 mg PO DAILY [facility] Last Admin: 04/26/18 09:42 Dose: 81 mg Bisacodyl (Dulcolax) 10 mg PO Q24H [facility] Last Admin: 04/26/18 09:48 Dose: 10 mg Enoxaparin Sodium (Lovenox) 30 mg SC DAILY [facility] Last Admin: 04/23/18 09:10 Dose: 30 mg Fenofibrate (Tricor) 48 mg PO QPM [facility] Last Admin: 04/26/18 22:11 Dose: 48 mg Ferric Sodium Gluconate Complex (Ferrlecit) 125 mg IVPB DAILY [facility] Stop: 05/04/18 10:01 Last Admin: 04/26/18 09:43 Dose: 125 mg Gabapentin (Neurontin) 300 mg PO DAILY [facility] Last Admin: 04/26/18 09:42 Dose: 300 mg Dextrose/Sodium Chloride (Dextrose 5%/0.9% Ns 1000 Ml) 1,000 mls @ 60 mls/hr IV .[id number] [facility] Last Admin: 04/26/18 16:25 Dose: Not Given Losartan Potassium (Cozaar) 25 mg PO DAILY [facility] Last Admin: 04/26/18 09:42 Dose: 25 mg Ondansetron HCl (Zofran Inj) 4 mg IVP Q6H PRN PRN Reason: Nausea/Vomiting Last Admin: 04/24/18 04:26 Dose: 4 mg Sucralfate (Carafate Oral Susp) 1 gm PO ACBD [facility] Last Admin: 04/27/18 07:38 Dose: 1 gm - Labs Labs: 04/26/18 11:19 04/27/18 07:11 PT 16.0 SECONDS (9.7-12.2) H 04/23/18 14:52 INR 1.5 04/23/18 14:52 APTT 34 SECONDS (21-34) 04/23/18 14:52
[2018-04-27] MEDS: Dextrose 5%/0.9% NS 1,000 ML IV SCH (08:36)
[2018-04-27] MEDS: Ferric Sodium Gluconat Complex 62.5 mg/5 ml Vial IVPB SCH (09:55)
[2018-04-27] MEDS: Bisacodyl 5mg EC Tab PO SCH (10:02)
[2018-04-27] MEDS: (Novolin R) Insulin Human Regular 100 units/ml vial SC SCH ×2 (18:14→21:49)
--- NOTE | 2018-04-27 18:51 | CON ---
DATE: 04/24/2018 UROLOGY CONSULTATION UROLOGY CONSULTATION REQUESTED BY: Cliff Bach MD UROLOGY CONSULTATION FILLED BY: Bere Hicks MD REASON FOR CONSULTATION: Prostate cancer. HISTORY OF PRESENT ILLNESS: The patient is an 87-year-old male with prostate cancer. The patient is in otherwise fair health. He has history of metastatic prostate cancer. The patient has been treated with androgen deprivation therapy including leuprolide. He had good response in past. The medication therapy was subsequently discontinued due to concern about cerebrovascular disease. The androgen deprivation therapy was restarted last year after PSA was declining again. The patient had an excellent response and decrease in his PSA again. The patient is now admitted with abdominal pain. He reports suprapubic pain. There is no vomiting. The patient with mild nausea. No flank pain. No hematuria. No dysuria. The patient reports he voids with good urinary stream and good control. The patient has history of cerebrovascular disease. The patient has history of previous cerebrovascular accident. The patient has right sided weakness of his upper and lower extremities. He is able to ambulate with the cane. The patient lives at home with his . Due to the pain, the patient was admitted here. The patient reports that he is still having pain. The patient has occasional constipation. No nausea or vomiting. PHYSICAL EXAMINATION: GENERAL: The patient is well-developed, well-nourished elderly male. The patient is awake and alert. ABDOMEN: Soft and nondistended. There is mild suprapubic tenderness. BACK: No CVA tenderness. GENITALIA: Without inflammation. IMPRESSION: An 87-year-old male with history of metastatic prostate carcinoma. The patient has been treated with leuprolide and androgen deprivation therapy. RECOMMENDATION AND PLAN: Further staging workup including bone scan and CAT scan. Serum PSA. Serum testosterone. Further therapy to follow according to the patient's clinical course. Thank you for recommending the patient for urology consultation. Bere Hicks MD
--- NOTE | 2018-04-27 22:58 | CP.PCM.PN ---
Subjective - Date & Time of Evaluation Date of Evaluation: 04/27/18 Time of Evaluation: 07:00 - Subjective Subjective: dictated Objective - Vital Signs/Intake and Output Vital Signs (last 24 hours): Temp Pulse Resp BP Pulse Ox 97.8 F 69 20 151/73 H 96 04/27/18 16:00 04/27/18 16:00 04/27/18 16:00 04/27/18 16:00 04/27/18 16:00 Intake and Output: 04/27/18 04/28/18 18:59 06:59 Intake Total 200 Balance 200 - Medications Medications: Current Medications Amlodipine Besylate (Norvasc) 10 mg PO DAILY [facility] Last Admin: 04/27/18 09:20 Dose: 10 mg Aspirin (Aspirin Chewable) 81 mg PO DAILY [facility] Last Admin: 04/27/18 09:20 Dose: 81 mg Bisacodyl (Dulcolax) 10 mg PO Q24H [facility] Last Admin: 04/27/18 10:02 Dose: Not Given Enoxaparin Sodium (Lovenox) 30 mg SC DAILY [facility] Last Admin: 04/23/18 09:10 Dose: 30 mg Fenofibrate (Tricor) 48 mg PO QPM [facility] Last Admin: 04/27/18 17:43 Dose: 48 mg Ferric Sodium Gluconate Complex (Ferrlecit) 125 mg IVPB DAILY [facility] Stop: 05/04/18 10:01 Last Admin: 04/27/18 09:55 Dose: 125 mg Gabapentin (Neurontin) 300 mg PO DAILY [facility] Last Admin: 04/27/18 09:20 Dose: 300 mg Insulin Human Regular (Novolin R) 0 unit SC [facility]; Protocol Last Admin: 04/27/18 21:49 Dose: Not Given Losartan Potassium (Cozaar) 25 mg PO DAILY [facility] Last Admin: 04/27/18 09:20 Dose: 25 mg Ondansetron HCl (Zofran Inj) 4 mg IVP Q6H PRN PRN Reason: Nausea/Vomiting Last Admin: 04/24/18 04:26 Dose: 4 mg Pioglitazone HCl (Actos) 45 mg PO DAILY [facility] Last Admin: 04/27/18 12:22 Dose: 45 mg Quetiapine Fumarate (Seroquel) 25 mg PO HS [facility] Last Admin: 04/27/18 21:49 Dose: 25 mg Sertraline HCl (Zoloft) 100 mg PO DAILY [facility] Sucralfate (Carafate Oral Susp) 1 gm PO ACBD [facility] Last Admin: 04/27/18 16:54 Dose: 1 gm - Labs Labs: 04/26/18 11:19 04/27/18 07:11 PT 16.0 SECONDS (9.7-12.2) H 04/23/18 14:52 INR 1.5 04/23/18 14:52 APTT 34 SECONDS (21-34) 04/23/18 14:52
--- NOTE | 2018-04-27 23:24 | PCM.URO ---
Urology Progress Note - General General: Tolerating Diet - Subjective Abdominal Pain: Yes Flank Pain: No Nausea: Yes Voiding Well: Yes Hematuria: No Good Stream: Yes Dsypnea: No Fever & Chills: No - Objective Lab Studies: Reviewed Lab Results Last 24 Hours: Laboratory Results - last 24 hr 04/27/18 04/27/18 04/27/18 07:11 07:12 11:30 Sodium 133 Potassium 4.0 Chloride 100 Carbon Dioxide 24 Anion Gap 14 BUN 13 Creatinine 1.0 Est GFR ( Amer) > 60 Est GFR (Non-Af Amer) > 60 POC Glucose (mg/dL) 264 H 302 H Random Glucose 239 H D Calcium 10.0 Magnesium 2.1 Total Bilirubin 1.2 AST 85 H D ALT 104 H D Alkaline Phosphatase 676 H Total Protein 7.5 Albumin 3.9 Globulin 3.6 Albumin/Globulin Ratio 1.1 C. difficile Ag & Toxin 04/27/18 04/27/18 04/27/18 18:11 18:25 21:24 Sodium Potassium Chloride Carbon Dioxide Anion Gap BUN Creatinine Est GFR ( Amer) Est GFR (Non-Af Amer) POC Glucose (mg/dL) 348 H 222 H Random Glucose Calcium Magnesium Total Bilirubin AST ALT Alkaline Phosphatase Total Protein Albumin Globulin Albumin/Globulin Ratio C. difficile Ag & Toxin Negative Intake & Output: Intake & Output 04/27/18 04/27/18 04/28/18 06:59 18:59 06:59 Intake Total 880 200 450 Output Total 2 Balance 878 200 450 Intake: Intake, IV Amount 480 Left Hand 480 Oral 400 200 450 Output: Urine/Stool Mix 2 Other: # Voids Urine, Voided 1 2 2 # Bowel Movements 3 1 Vital Signs: Vital Signs - 24 hr 04/27/18 04/27/18 04/27/18 00:08 08:00 16:00 Temperature 97.9 F 98 F 97.8 F Pulse Rate 68 65 69 Respiratory 20 20 20 Rate Blood Pressure 149/72 172/78 H 151/73 H O2 Sat by Pulse 96 95 96 Oximetry - Physical Exam Abdominal Exam: Soft, Non-Distended. absent: Non-Tender Bowel Sounds: Normal Back: No CVA Tenderness Genitalia: Without Inflammation - Plan Additional Information: IMP: metastatic CRPC. Pt will need secondary hormaonal therapy and poss chemotherapy. Rec: OOB, ambultation. discussed w nursing staff and w pt's visitor/materials planning analyst. - Date & Time of Note Date: 04/27/18 Time: 10:45
--- NOTE | 2018-04-27 23:48 | PN ---
DATE: 04/27/2018 LOCATION: 350, bed A. SUBJECTIVE: This is an 87-year-old male, seen and examined in rounds without significant clinical changes or reported active bleeding, appeared to be awake, alert, oriented with a complaint of right-sided weakness. The patient also complained of right-sided facial droop recently, but no nausea or vomiting. The entire chart is reviewed including but not limited to the most recent lab and radiology study results, and today's lab showed blood glucose level of 302. Rest of the labs are still pending despite persistent elevation of AST, ALT, and alkaline phosphatase and stool for occult blood reported to be positive for which the patient may need colonoscopy when he is more stable clinically. PHYSICAL EXAMINATION: GENERAL: An 87-year-old male. VITAL SIGNS: Afebrile, with pulse of 72, respiratory rate 20-22, blood pressure of 164/74. HEENT: Showed pale, dry oral mucous membranes. Nonicteric sclerae. LUNGS: Few scattered crepitations, decreased air entry at bases. HEART: Positive S1 and S2. ABDOMEN: Soft with mild generalized tenderness. No mass or organomegaly. No rebound tenderness or guarding. EXTREMITIES: Without significant clubbing, cyanosis, or edema. NEUROLOGIC: No reported new neurological deficits, sensory or motor. IMPRESSION: 1. Peptic ulcer disease. 2. Metastatic prostatic carcinoma. 3. 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 4. Gastric ulcer by recent endoscopy, nonbleeding. 5. Elevated CA level. The patient will need colonoscopy when he is more stable clinically due to his known history of diverticulosis with partial colon dissection before. 6. Abnormal CAT scan of the abdomen and pelvis secondary to above. 7. Poorly controlled hypertension, poorly controlled diabetes mellitus, hyperlipidemia by history. SUGGESTION: 1. Continue current management. 2. Close observation for potential lower endoscopy when he is more stable clinically. 3. In record is the result of the upper endoscopy, biopsy was positive for Helicobacter pylori infection and the patient will need Prevpac treatment, could be done as outpatient. Juan Carlos Mcpherson MD
--- NOTE | 2018-04-28 04:52 | PN ---
DATE: 04/28/2018 SUBJECTIVE: The patient had been seen by Urology. The patient is feeling well. He is on diet. His H and H is stable. He is not actively bleeding. He is not in distress. No nausea or vomiting. PHYSICAL EXAMINATION: VITAL SIGNS: Blood pressure 151/73, pulse 69, respiratory rate 20, temperature 97.8. LUNGS: Clear. No rales. No rhonchi. CARDIOVASCULAR SYSTEM: PMI not localized. S1 and S2. Regular. No heave noted. ABDOMEN: Soft and nontender. Bowel sounds are positive. ASSESSMENT: 1. Lower gastrointestinal bleed; most likely, it is diverticular bleed. Hemoglobin and hematocrit is stable. 2. Advanced prostatic cancer. The patient is on urological followup. 3. Hypertension. 4. Diabetes. PLAN: Pending subacute rehabilitation. Monitor the patient. Cliff Bach MD
[2018-04-28] MEDS: (Novolin R) Insulin Human Regular 100 units/ml vial SC SCH ×4 (08:42→22:28)
[2018-04-28] MEDS: Sucralfate 1 gm/10 ml Oral Susp UD PO SCH ×2 (08:42→17:05)
[2018-04-28] MEDS: Ferric Sodium Gluconat Complex 62.5 mg/5 ml Vial IVPB SCH (09:35)
[2018-04-28] MEDS: Bisacodyl 5mg EC Tab PO SCH (09:36)
[2018-04-28] MEDS: Enoxaparin 30 mg Syringe SC SCH (09:36)
--- NOTE | 2018-04-28 10:21 | CP.PCM.PN ---
Subjective - Date & Time of Evaluation Date of Evaluation: 04/27/18 Time of Evaluation: 16:20 - Subjective Subjective: patient seen and evaluated Denies chest pain and dyspnea Hemodynamically stable Review Of Systems Except As Marked, All Systems Reviewed And Found Negative. Constitutional: Negative for: Fever, Chills Gastrointestinal: Positive for: Vomiting (Non-bloody ), Abdominal Pain (Lower ). Negative for: Diarrhea, Constipation Genitourinary: Positive for: Dysuria. Negative for: Hematuria Skin: Negative for: Rash Neurological: Negative for: Weakness, Numbness Physical Exam - Physical Exam Appears: Non-toxic, No Acute Distress Skin: Normal Color, Warm, Dry, No Rash Head: Atraumatic, Normacephalic Eye(s): bilateral: Normal Inspection, PERRL, EOMI Oral Mucosa: Moist Neck: Normal ROM, Supple Chest: Symmetrical, No Tenderness Cardiovascular: Rhythm Regular Respiratory: Normal Breath Sounds, No Rales, No Rhonchi, No Wheezing Gastrointestinal/Abdominal: Soft, Tenderness (Suprapubic ), No Distention, No Guarding, No Rebound Extremity: Normal ROM Extremity: Bilateral: Atraumatic, Normal Color And Temperature, Normal ROM Pulses: Left Radial: Normal, Right Radial: Normal Neurological/Psych: Oriented x3, Normal Speech Gait: Steady Assessment & Plan - Assessment and Plan (Free Text) Assessment: 87F with hx of DM2, CVA, COPD admitted for abdominal pain and uncontrolled HTN Continue current BP meds Objective - Vital Signs/Intake and Output Vital Signs (last 24 hours): Temp Pulse Resp BP Pulse Ox 98.5 F 77 20 128/74 95 04/28/18 07:49 04/28/18 07:49 04/28/18 07:49 04/28/18 07:49 04/28/18 07:49 Intake and Output: 04/28/18 04/28/18 06:59 18:59 Intake Total 600 Output Total 250 Balance 350 - Medications Medications: Current Medications Amlodipine Besylate (Norvasc) 10 mg PO DAILY [facility] Last Admin: 04/28/18 09:35 Dose: 10 mg Aspirin (Aspirin Chewable) 81 mg PO DAILY [facility] Last Admin: 04/28/18 09:35 Dose: 81 mg Bisacodyl (Dulcolax) 10 mg PO Q24H [facility] Last Admin: 04/28/18 09:36 Dose: Not Given Enoxaparin Sodium (Lovenox) 30 mg SC DAILY [facility] Last Admin: 04/28/18 09:36 Dose: 30 mg Fenofibrate (Tricor) 48 mg PO QPM [facility] Last Admin: 04/27/18 17:43 Dose: 48 mg Ferric Sodium Gluconate Complex (Ferrlecit) 125 mg IVPB DAILY [facility] Stop: 05/04/18 10:01 Last Admin: 04/28/18 09:35 Dose: 125 mg Gabapentin (Neurontin) 300 mg PO DAILY [facility] Last Admin: 04/28/18 09:35 Dose: 300 mg Insulin Human Regular (Novolin R) 0 unit SC [facility]; Protocol Last Admin: 04/28/18 08:42 Dose: 2 units Losartan Potassium (Cozaar) 25 mg PO DAILY [facility] Last Admin: 04/28/18 09:35 Dose: 25 mg Ondansetron HCl (Zofran Inj) 4 mg IVP Q6H PRN PRN Reason: Nausea/Vomiting Last Admin: 04/24/18 04:26 Dose: 4 mg Pioglitazone HCl (Actos) 45 mg PO DAILY [facility] Last Admin: 04/28/18 09:32 Dose: 45 mg Quetiapine Fumarate (Seroquel) 25 mg PO HS [facility] Last Admin: 04/27/18 21:49 Dose: 25 mg Sertraline HCl (Zoloft) 100 mg PO DAILY [facility] Last Admin: 04/28/18 09:33 Dose: 100 mg Sucralfate (Carafate Oral Susp) 1 gm PO ACBD [facility] Last Admin: 04/28/18 08:42 Dose: 1 gm - Labs Labs: 04/26/18 11:19 04/27/18 07:11 PT 16.0 SECONDS (9.7-12.2) H 04/23/18 14:52 INR 1.5 04/23/18 14:52 APTT 34 SECONDS (21-34) 04/23/18 14:52
--- NOTE | 2018-04-28 12:52 | PN ---
DATE: 04/28/2018 LOCATION: 350, bed A. SUBJECTIVE: This is an 87-year-old male seen and examined in rounds early today with reported episodes of watery bowel movement, stool workup results still pending, but no reported actual bleeding, significant chest pain or palpitation or significant increase of shortness of breath. No reported chills or fever. The patient still has right-sided upper extremity weakness including right upper extremities and right lower extremities with flaccid muscles as well as the right-sided facial drop. The patient is somewhat tolerating some oral intake recently, but with loss of appetite. The entire chart is reviewed including but not limited to the most recent lab results and today's blood glucose level is 189. Rest of the lab results, however, is still pending despite the patient had elevated liver function test with AST, ALT and alkaline phosphatase is negative as well as stool for C. diff antigen and toxin is still negative. Stool for occult blood is still positive and PSA is still significantly elevated to 318 as per recent results with increased CEA level to 9.2. Hepatitis profile reported to be negative. PHYSICAL EXAMINATION: GENERAL: A 87-year-old male. VITAL SIGNS: Afebrile with pulse of 66, respiratory 20-22, blood pressure 136/76. HEENT: Showed pale dry oral mucous membrane. Nonicteric sclerae. LUNGS: Few scattered crepitation. Decreased air entry at bases. HEART: Positive S1 and S2. ABDOMEN: Soft with mild generalized tenderness with mild distention. No mass or organomegaly. No rebound tenderness or guarding. EXTREMITIES: Without significant clubbing, cyanosis or edema. IMPRESSION: 1. Diarrhea of unclear etiology, that could be osmotic diarrhea versus early case of acute diverticulitis and/or short bowel syndrome. 2. Re-exacerbation of peptic ulcer disease. 3. Metastatic prostatic cancer. 4. Elevated CEA level with possible lower gastrointestinal tract, primary or secondary cancer. 5. Abnormal CAT scan of the abdomen and pelvis. 6. Poorly controlled hypertension, poorly controlled diabetes mellitus with possible diabetic diarrhea. 7. Known history of hyperlipidemia. SUGGESTIONS: 1. Continue current management. 2. Again, the patient may need colonoscopy when he is more stable clinically, that to be discussed with the family as well as the admitting medical team. Juan Carlos Mcpherson MD [facility] # [id number]
[2018-04-29] MEDS: (Novolin R) Insulin Human Regular 100 units/ml vial SC SCH ×4 (08:30→23:30)
[2018-04-29] MEDS: Sucralfate 1 gm/10 ml Oral Susp UD PO SCH ×2 (08:31→17:49)
[2018-04-29] MEDS: Ferric Sodium Gluconat Complex 62.5 mg/5 ml Vial IVPB SCH (09:00)
[2018-04-29] MEDS: Enoxaparin 30 mg Syringe SC SCH (09:01)
--- NOTE | 2018-04-29 09:34 | PN ---
DATE: 04/29/2018 LOCATION: 350, bed A. SUBJECTIVE: This is an 87-year-old male seen and examined in rounds with a complaint of right-sided weakness with poor oral intake and loss of appetite recently, but no reported active chest pain, palpitation, significant increase of shortness of breath or evidence of active GI bleeding, but mild nausea with dyspepsia on and off. The entire chart is reviewed including but not limited to the most recent lab and radiology study results, current and previous medication list, current and previous medical events. Case discussed with the staff at length. Stool for occult blood reported to be positive. Today's lab results showed blood glucose level of 253. Rest of the lab results still pending. PHYSICAL EXAMINATION: GENERAL: An 87-year-old male. VITAL SIGNS: Afebrile with pulse of 66, respiratory rate 20-22, blood pressure of 130/72. HEENT: Showed pale dry oral mucous membrane. Nonicteric sclerae. LUNGS: Few scattered crepitation. Decreased air entry at bases. HEART: Positive S1 and S2. ABDOMEN: Soft. Bowel sounds are present. No mass or organomegaly. No rebound tenderness or guarding, but generalized abdominal tenderness. EXTREMITIES: Lower extremity, edematous changes. No clubbing or cyanosis. No reported new neurological deficits, sensory or motor. IMPRESSION: 1. Hypochromic microcytic anemia with re-exacerbation of peptic ulcer disease. 2. Diarrhea, the possibility of early phase of acute diverticulitis was raised versus diabetic diarrhea. 3. Reported history of metastatic prostatic cancer. 4. Increased CEA level with possible lower gastrointestinal tract cancer. 5. Reported history of hypertension, poorly controlled diabetes mellitus with possible diabetic diarrhea. 6. Known history of hyperlipidemia. SUGGESTIONS: 1. Continue current management. 2. The patient is to be scheduled for colonoscopy when he is more stable clinically. 3. Follow up on hemoglobin and hematocrit. 4. Further recommendation to follow post colonoscopy. Case is to be discussed with the family as well as the admitting MD. Juan Carlos Mchperson MD
[2018-04-29 11:04] LABS: HEMOGLOBIN 10.4 g/dL (12.0-18.0); MEAN CELL VOLUME 79.2 fL (80.0-94.0); MEAN CORPUSCULAR HEMOGLOBIN 25.2 pg (27.0-31.0); MEAN CORPUSCULAR HGB CONC 31.8 g/dL (33.0-37.0); MEAN PLATELET VOLUME 7.5 fL (7.2-11.7); RBC 4.12 Mil/uL (4.40-5.90); RED CELL DISTRIBUTION WIDTH 23.2 % (11.5-14.5); WHITE BLOOD COUNT 4.7 K/uL (4.8-10.8)
[2018-04-29 11:11] LABS: INR 1.6; PROTHROMBIN TIME 17.8 SECONDS (9.7-12.2)
[2018-04-29 11:23] LABS: ALBUMIN 3.8 g/dL (3.5-5.0); ALT/SGPT 74 U/L (21-72); AST/SGOT 102 U/L (17-59); BLOOD UREA NITROGEN 21 mg/dL (9-20); CALCIUM 10.2 mg/dl (8.6-10.4); GFR NON-AFRICAN AMERICAN 52
--- NOTE | 2018-04-29 12:01 | CP.PCM.PN ---
Subjective - Date & Time of Evaluation Date of Evaluation: 04/28/18 Time of Evaluation: 08:35 - Subjective Subjective: patient seen and evaluated Denies chest pain and dyspnea Hemodynamically stable Review Of Systems Except As Marked, All Systems Reviewed And Found Negative. Constitutional: Negative for: Fever, Chills Gastrointestinal: Positive for: Vomiting (Non-bloody ), Abdominal Pain (Lower ). Negative for: Diarrhea, Constipation Genitourinary: Positive for: Dysuria. Negative for: Hematuria Skin: Negative for: Rash Neurological: Negative for: Weakness, Numbness Physical Exam - Physical Exam Appears: Non-toxic, No Acute Distress Skin: Normal Color, Warm, Dry, No Rash Head: Atraumatic, Normacephalic Eye(s): bilateral: Normal Inspection, PERRL, EOMI Oral Mucosa: Moist Neck: Normal ROM, Supple Chest: Symmetrical, No Tenderness Cardiovascular: Rhythm Regular Respiratory: Normal Breath Sounds, No Rales, No Rhonchi, No Wheezing Gastrointestinal/Abdominal: Soft, Tenderness (Suprapubic ), No Distention, No Guarding, No Rebound Extremity: Normal ROM Extremity: Bilateral: Atraumatic, Normal Color And Temperature, Normal ROM Pulses: Left Radial: Normal, Right Radial: Normal Neurological/Psych: Oriented x3, Normal Speech Gait: Steady Assessment & Plan - Assessment and Plan (Free Text) Assessment: 87F with hx of DM2, CVA, COPD admitted for abdominal pain and uncontrolled HTN Continue current BP meds Objective - Vital Signs/Intake and Output Vital Signs (last 24 hours): Temp Pulse Resp BP Pulse Ox 98.2 F 62 20 135/74 96 04/29/18 07:54 04/29/18 07:54 04/29/18 07:54 04/29/18 07:54 04/29/18 07:54 Intake and Output: 04/29/18 04/29/18 06:59 18:59 Intake Total Balance - Medications Medications: Current Medications Amlodipine Besylate (Norvasc) 10 mg PO DAILY [facility] Last Admin: 04/29/18 09:01 Dose: 10 mg Aspirin (Aspirin Chewable) 81 mg PO DAILY [facility] Last Admin: 04/29/18 09:01 Dose: 81 mg Bisacodyl (Dulcolax) 10 mg PO Q24H [facility] Last Admin: 04/28/18 09:36 Dose: Not Given Enoxaparin Sodium (Lovenox) 30 mg SC DAILY [facility] Last Admin: 04/29/18 09:01 Dose: 30 mg Fenofibrate (Tricor) 48 mg PO QPM [facility] Last Admin: 04/28/18 18:37 Dose: 48 mg Ferric Sodium Gluconate Complex (Ferrlecit) 125 mg IVPB DAILY [facility] Stop: 05/04/18 10:01 Last Admin: 04/29/18 09:00 Dose: 125 mg Gabapentin (Neurontin) 300 mg PO DAILY [facility] Last Admin: 04/29/18 09:01 Dose: 300 mg Insulin Human Regular (Novolin R) 0 unit SC [facility]; Protocol Last Admin: 04/29/18 08:30 Dose: 4 units Losartan Potassium (Cozaar) 25 mg PO DAILY [facility] Last Admin: 04/29/18 09:01 Dose: 25 mg Ondansetron HCl (Zofran Inj) 4 mg IVP Q6H PRN PRN Reason: Nausea/Vomiting Last Admin: 04/24/18 04:26 Dose: 4 mg Pioglitazone HCl (Actos) 45 mg PO DAILY [facility] Last Admin: 04/29/18 09:05 Dose: 45 mg Quetiapine Fumarate (Seroquel) 25 mg PO HS [facility] Last Admin: 04/28/18 22:33 Dose: 25 mg Sertraline HCl (Zoloft) 100 mg PO DAILY [facility] Last Admin: 04/29/18 09:05 Dose: 100 mg Sucralfate (Carafate Oral Susp) 1 gm PO ACBD [facility] Last Admin: 04/29/18 08:31 Dose: 1 gm - Labs Labs: 04/29/18 10:58 04/29/18 10:58 PT 17.8 SECONDS (9.7-12.2) H 04/29/18 10:58 INR 1.6 04/29/18 10:58 APTT 44 SECONDS (21-34) H 04/29/18 10:58
[2018-04-29 12:03] LABS: EOS # 0.3 K/uL (0.0-0.7); LYMPH # 0.6 K/uL (1.0-4.3); MONO # 0.3 K/uL (0.0-0.8); NEUT # 3.5 K/uL (1.8-7.0)
[2018-04-29] MEDS: Bisacodyl 5mg EC Tab PO SCH (12:09)
--- NOTE | 2018-04-29 18:28 | CP.PCM.PN ---
Subjective - Date & Time of Evaluation Date of Evaluation: 04/29/18 Time of Evaluation: 08:40 - Subjective Subjective: dictated Objective - Vital Signs/Intake and Output Vital Signs (last 24 hours): Temp Pulse Resp BP Pulse Ox 98.5 F 73 20 131/75 97 04/29/18 16:00 04/29/18 16:00 04/29/18 16:00 04/29/18 16:00 04/29/18 16:00 Intake and Output: 04/29/18 04/29/18 06:59 18:59 Intake Total 500 Balance 500 - Medications Medications: Current Medications Amlodipine Besylate (Norvasc) 10 mg PO DAILY [facility] Last Admin: 04/29/18 09:01 Dose: 10 mg Aspirin (Aspirin Chewable) 81 mg PO DAILY [facility] Last Admin: 04/29/18 09:01 Dose: 81 mg Bisacodyl (Dulcolax) 10 mg PO Q24H [facility] Last Admin: 04/29/18 12:09 Dose: Not Given Enoxaparin Sodium (Lovenox) 30 mg SC DAILY [facility] Last Admin: 04/29/18 09:01 Dose: 30 mg Fenofibrate (Tricor) 48 mg PO QPM [facility] Last Admin: 04/29/18 17:49 Dose: 48 mg Ferric Sodium Gluconate Complex (Ferrlecit) 125 mg IVPB DAILY [facility] Stop: 05/04/18 10:01 Last Admin: 04/29/18 09:00 Dose: 125 mg Gabapentin (Neurontin) 300 mg PO DAILY [facility] Last Admin: 04/29/18 09:01 Dose: 300 mg Insulin Human Regular (Novolin R) 0 unit SC [facility]; Protocol Last Admin: 04/29/18 17:48 Dose: 4 units Losartan Potassium (Cozaar) 25 mg PO DAILY [facility] Last Admin: 04/29/18 09:01 Dose: 25 mg Ondansetron HCl (Zofran Inj) 4 mg IVP Q6H PRN PRN Reason: Nausea/Vomiting Last Admin: 04/24/18 04:26 Dose: 4 mg Pioglitazone HCl (Actos) 45 mg PO DAILY [facility] Last Admin: 04/29/18 09:05 Dose: 45 mg Quetiapine Fumarate (Seroquel) 25 mg PO HS [facility] Last Admin: 04/28/18 22:33 Dose: 25 mg Sertraline HCl (Zoloft) 100 mg PO DAILY [facility] Last Admin: 04/29/18 09:05 Dose: 100 mg Sucralfate (Carafate Oral Susp) 1 gm PO ACBD [facility] Last Admin: 04/29/18 17:49 Dose: 1 gm - Labs Labs: 04/29/18 10:58 04/29/18 10:58 PT 17.8 SECONDS (9.7-12.2) H 04/29/18 10:58 INR 1.6 04/29/18 10:58 APTT 44 SECONDS (21-34) H 04/29/18 10:58
--- NOTE | 2018-04-29 18:28 | CP.PCM.PN ---
Subjective - Date & Time of Evaluation Date of Evaluation: 04/28/18 Time of Evaluation: 08:40 - Subjective Subjective: dictated Objective - Vital Signs/Intake and Output Vital Signs (last 24 hours): Temp Pulse Resp BP Pulse Ox 98.5 F 73 20 131/75 97 04/29/18 16:00 04/29/18 16:00 04/29/18 16:00 04/29/18 16:00 04/29/18 16:00 Intake and Output: 04/29/18 04/29/18 06:59 18:59 Intake Total 500 Balance 500 - Medications Medications: Current Medications Amlodipine Besylate (Norvasc) 10 mg PO DAILY [facility] Last Admin: 04/29/18 09:01 Dose: 10 mg Aspirin (Aspirin Chewable) 81 mg PO DAILY [facility] Last Admin: 04/29/18 09:01 Dose: 81 mg Bisacodyl (Dulcolax) 10 mg PO Q24H [facility] Last Admin: 04/29/18 12:09 Dose: Not Given Enoxaparin Sodium (Lovenox) 30 mg SC DAILY [facility] Last Admin: 04/29/18 09:01 Dose: 30 mg Fenofibrate (Tricor) 48 mg PO QPM [facility] Last Admin: 04/29/18 17:49 Dose: 48 mg Ferric Sodium Gluconate Complex (Ferrlecit) 125 mg IVPB DAILY [facility] Stop: 05/04/18 10:01 Last Admin: 04/29/18 09:00 Dose: 125 mg Gabapentin (Neurontin) 300 mg PO DAILY [facility] Last Admin: 04/29/18 09:01 Dose: 300 mg Insulin Human Regular (Novolin R) 0 unit SC [facility]; Protocol Last Admin: 04/29/18 17:48 Dose: 4 units Losartan Potassium (Cozaar) 25 mg PO DAILY [facility] Last Admin: 04/29/18 09:01 Dose: 25 mg Ondansetron HCl (Zofran Inj) 4 mg IVP Q6H PRN PRN Reason: Nausea/Vomiting Last Admin: 04/24/18 04:26 Dose: 4 mg Pioglitazone HCl (Actos) 45 mg PO DAILY [facility] Last Admin: 04/29/18 09:05 Dose: 45 mg Quetiapine Fumarate (Seroquel) 25 mg PO HS [facility] Last Admin: 04/28/18 22:33 Dose: 25 mg Sertraline HCl (Zoloft) 100 mg PO DAILY [facility] Last Admin: 04/29/18 09:05 Dose: 100 mg Sucralfate (Carafate Oral Susp) 1 gm PO ACBD [facility] Last Admin: 04/29/18 17:49 Dose: 1 gm - Labs Labs: 04/29/18 10:58 04/29/18 10:58 PT 17.8 SECONDS (9.7-12.2) H 04/29/18 10:58 INR 1.6 04/29/18 10:58 APTT 44 SECONDS (21-34) H 04/29/18 10:58
--- NOTE | 2018-04-29 20:59 | CP.PCM.PN ---
Subjective - Date & Time of Evaluation Date of Evaluation: 04/29/18 Time of Evaluation: 10:30 - Subjective Subjective: patient seen and evaluated Denies chest pain and dyspnea Hemodynamically stable Review Of Systems Except As Marked, All Systems Reviewed And Found Negative. Constitutional: Negative for: Fever, Chills Gastrointestinal: Positive for: Vomiting (Non-bloody ), Abdominal Pain (Lower ). Negative for: Diarrhea, Constipation Genitourinary: Positive for: Dysuria. Negative for: Hematuria Skin: Negative for: Rash Neurological: Negative for: Weakness, Numbness Physical Exam - Physical Exam Appears: Non-toxic, No Acute Distress Skin: Normal Color, Warm, Dry, No Rash Head: Atraumatic, Normacephalic Eye(s): bilateral: Normal Inspection, PERRL, EOMI Oral Mucosa: Moist Neck: Normal ROM, Supple Chest: Symmetrical, No Tenderness Cardiovascular: Rhythm Regular Respiratory: Normal Breath Sounds, No Rales, No Rhonchi, No Wheezing Gastrointestinal/Abdominal: Soft, Tenderness (Suprapubic ), No Distention, No Guarding, No Rebound Extremity: Normal ROM Extremity: Bilateral: Atraumatic, Normal Color And Temperature, Normal ROM Pulses: Left Radial: Normal, Right Radial: Normal Neurological/Psych: Oriented x3, Normal Speech Gait: Steady Assessment & Plan - Assessment and Plan (Free Text) Assessment: 87F with hx of DM2, CVA, COPD admitted for abdominal pain and uncontrolled HTN Continue current BP meds Objective - Vital Signs/Intake and Output Vital Signs (last 24 hours): Temp Pulse Resp BP Pulse Ox 98.5 F 73 20 131/75 97 04/29/18 16:00 04/29/18 16:00 04/29/18 16:00 04/29/18 16:00 04/29/18 16:00 Intake and Output: 04/29/18 04/30/18 18:59 06:59 Intake Total 500 Balance 500 - Medications Medications: Current Medications Amlodipine Besylate (Norvasc) 10 mg PO DAILY [facility] Last Admin: 04/29/18 09:01 Dose: 10 mg Aspirin (Aspirin Chewable) 81 mg PO DAILY [facility] Last Admin: 04/29/18 09:01 Dose: 81 mg Bisacodyl (Dulcolax) 10 mg PO Q24H [facility] Last Admin: 04/29/18 12:09 Dose: Not Given Enoxaparin Sodium (Lovenox) 30 mg SC DAILY [facility] Last Admin: 04/29/18 09:01 Dose: 30 mg Fenofibrate (Tricor) 48 mg PO QPM [facility] Last Admin: 04/29/18 17:49 Dose: 48 mg Ferric Sodium Gluconate Complex (Ferrlecit) 125 mg IVPB DAILY [facility] Stop: 05/04/18 10:01 Last Admin: 04/29/18 09:00 Dose: 125 mg Gabapentin (Neurontin) 300 mg PO DAILY [facility] Last Admin: 04/29/18 09:01 Dose: 300 mg Insulin Human Regular (Novolin R) 0 unit SC [facility]; Protocol Last Admin: 04/29/18 17:48 Dose: 4 units Losartan Potassium (Cozaar) 25 mg PO DAILY [facility] Last Admin: 04/29/18 09:01 Dose: 25 mg Ondansetron HCl (Zofran Inj) 4 mg IVP Q6H PRN PRN Reason: Nausea/Vomiting Last Admin: 04/24/18 04:26 Dose: 4 mg Pioglitazone HCl (Actos) 45 mg PO DAILY [facility] Last Admin: 04/29/18 09:05 Dose: 45 mg Quetiapine Fumarate (Seroquel) 25 mg PO HS [facility] Last Admin: 04/28/18 22:33 Dose: 25 mg Sertraline HCl (Zoloft) 100 mg PO DAILY [facility] Last Admin: 04/29/18 09:05 Dose: 100 mg Sucralfate (Carafate Oral Susp) 1 gm PO ACBD [facility] Last Admin: 04/29/18 17:49 Dose: 1 gm - Labs Labs: 04/29/18 10:58 04/29/18 10:58 PT 17.8 SECONDS (9.7-12.2) H 04/29/18 10:58 INR 1.6 04/29/18 10:58 APTT 44 SECONDS (21-34) H 04/29/18 10:58
--- NOTE | 2018-04-29 23:08 | PN ---
DATE: 04/29/2018 SUBJECTIVE: The patient is waiting for subacute rehab. No fever. No chills. He had lower abdominal pain. He had extensive disease. PHYSICAL EXAMINATION: VITAL SIGNS: Blood pressure 126/68, pulse 67, respiratory rate 20, temperature 98.2. LUNGS: Clear. No rales. No rhonchi. CARDIOVASCULAR SYSTEM: S1, S2 regular. ABDOMEN: Soft, nontender. Bowel sounds are positive. ASSESSMENT: 1. Extensive prostate cancer with metastatic disease locally as well as bony metastasis with the patient in pain. 2. Gastrointestinal bleed, on medical management. 3. Diabetes. PLAN: Physical therapy. Rehab. Monitor the patient. Cliff Bach MD
--- NOTE | 2018-04-29 23:10 | PN ---
DATE: 04/29/2018 CHIEF COMPLAINT: Lower abdominal pain, no dysuria. SUBJECTIVE: He is feeling much better. His H and H is stable. He is not in distress. He is on pain medication and he get nauseous at time. PHYSICAL EXAMINATION: VITAL SIGNS: Blood pressure 129/73, pulse 63, respiratory rate 20, temperature 98.2. LUNGS: Clear. No rales. No rhonchi. CARDIOVASCULAR SYSTEM: PMI not localized. S1, S2. Regular. No heave noted. ABDOMEN: Soft, nontender, bowel sound are positive. ASSESSMENT: 1. Metastatic prostate cancer with extensive disease in the pelvis. 2. Hypertension. 3. Coronary artery disease. 4. Gastrointestinal bleed. PLAN: Continue to monitor patient, H and H, subacute rehab. Cliff Bach MD
--- NOTE | 2018-04-30 | CP.PCM.PN ---
Subjective - Date & Time of Evaluation Date of Evaluation: 04/26/18 Time of Evaluation: 13:00 - Subjective Subjective: Feels tired. Objective - Vital Signs/Intake and Output Vital Signs (last 24 hours): Temp Pulse Resp BP Pulse Ox 98.5 F 73 20 131/75 97 04/29/18 16:00 04/29/18 16:00 04/29/18 16:00 04/29/18 16:00 04/29/18 16:00 Intake and Output: 04/29/18 04/30/18 18:59 06:59 Intake Total 500 Balance 500 - Medications Medications: Current Medications Amlodipine Besylate (Norvasc) 10 mg PO DAILY [facility] Last Admin: 04/29/18 09:01 Dose: 10 mg Aspirin (Aspirin Chewable) 81 mg PO DAILY [facility] Last Admin: 04/29/18 09:01 Dose: 81 mg Bisacodyl (Dulcolax) 10 mg PO Q24H [facility] Last Admin: 04/29/18 12:09 Dose: Not Given Enoxaparin Sodium (Lovenox) 30 mg SC DAILY [facility] Last Admin: 04/29/18 09:01 Dose: 30 mg Fenofibrate (Tricor) 48 mg PO QPM [facility] Last Admin: 04/29/18 17:49 Dose: 48 mg Ferric Sodium Gluconate Complex (Ferrlecit) 125 mg IVPB DAILY [facility] Stop: 05/04/18 10:01 Last Admin: 04/29/18 09:00 Dose: 125 mg Gabapentin (Neurontin) 300 mg PO DAILY [facility] Last Admin: 04/29/18 09:01 Dose: 300 mg Insulin Human Regular (Novolin R) 0 unit SC [facility]; Protocol Last Admin: 04/29/18 23:30 Dose: Not Given Losartan Potassium (Cozaar) 25 mg PO DAILY [facility] Last Admin: 04/29/18 09:01 Dose: 25 mg Ondansetron HCl (Zofran Inj) 4 mg IVP Q6H PRN PRN Reason: Nausea/Vomiting Last Admin: 04/24/18 04:26 Dose: 4 mg Pioglitazone HCl (Actos) 45 mg PO DAILY [facility] Last Admin: 04/29/18 09:05 Dose: 45 mg Quetiapine Fumarate (Seroquel) 25 mg PO HS [facility] Last Admin: 04/29/18 21:53 Dose: 25 mg Sertraline HCl (Zoloft) 100 mg PO DAILY [facility] Last Admin: 04/29/18 09:05 Dose: 100 mg Sucralfate (Carafate Oral Susp) 1 gm PO ACBD [facility] Last Admin: 04/29/18 17:49 Dose: 1 gm - Labs Labs: 04/29/18 10:58 04/29/18 10:58 PT 17.8 SECONDS (9.7-12.2) H 04/29/18 10:58 INR 1.6 04/29/18 10:58 APTT 44 SECONDS (21-34) H 04/29/18 10:58 - Head Exam Head Exam: ATRAUMATIC - Eye Exam Eye Exam: Normal appearance - ENT Exam ENT Exam: Mucous Membranes Dry - Respiratory Exam Respiratory Exam: NORMAL BREATHING PATTERN - Cardiovascular Exam Cardiovascular Exam: +S1, +S2 - GI/Abdominal Exam GI & Abdominal Exam: Normal Bowel Sounds Assessment and Plan (1) Prostate cancer Assessment & Plan: bone and lymph node metastasis noted elevated CEA - GI w/u in progress testosterone at castrate level with worsening disease; 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 Lupron with urology Status: Acute (2) Anemia Assessment & Plan: borderline iron stores with elevated CEA GI w/u in progress on IV iron Status: Acute (3) Coagulopathy Status: Acute
--- NOTE | 2018-04-30 00:03 | CP.PCM.PN ---
Subjective - Date & Time of Evaluation Date of Evaluation: 04/27/18 Time of Evaluation: 14:00 - Subjective Subjective: Feels weak. Objective - Vital Signs/Intake and Output Vital Signs (last 24 hours): Temp Pulse Resp BP Pulse Ox 98.5 F 73 20 131/75 97 04/29/18 16:00 04/29/18 16:00 04/29/18 16:00 04/29/18 16:00 04/29/18 16:00 Intake and Output: 04/29/18 04/30/18 18:59 06:59 Intake Total 500 Balance 500 - Medications Medications: Current Medications Amlodipine Besylate (Norvasc) 10 mg PO DAILY [facility] Last Admin: 04/29/18 09:01 Dose: 10 mg Aspirin (Aspirin Chewable) 81 mg PO DAILY [facility] Last Admin: 04/29/18 09:01 Dose: 81 mg Bisacodyl (Dulcolax) 10 mg PO Q24H [facility] Last Admin: 04/29/18 12:09 Dose: Not Given Enoxaparin Sodium (Lovenox) 30 mg SC DAILY [facility] Last Admin: 04/29/18 09:01 Dose: 30 mg Fenofibrate (Tricor) 48 mg PO QPM [facility] Last Admin: 04/29/18 17:49 Dose: 48 mg Ferric Sodium Gluconate Complex (Ferrlecit) 125 mg IVPB DAILY [facility] Stop: 05/04/18 10:01 Last Admin: 04/29/18 09:00 Dose: 125 mg Gabapentin (Neurontin) 300 mg PO DAILY [facility] Last Admin: 04/29/18 09:01 Dose: 300 mg Insulin Human Regular (Novolin R) 0 unit SC [facility]; Protocol Last Admin: 04/29/18 23:30 Dose: Not Given Losartan Potassium (Cozaar) 25 mg PO DAILY [facility] Last Admin: 04/29/18 09:01 Dose: 25 mg Ondansetron HCl (Zofran Inj) 4 mg IVP Q6H PRN PRN Reason: Nausea/Vomiting Last Admin: 04/24/18 04:26 Dose: 4 mg Pioglitazone HCl (Actos) 45 mg PO DAILY [facility] Last Admin: 04/29/18 09:05 Dose: 45 mg Quetiapine Fumarate (Seroquel) 25 mg PO HS [facility] Last Admin: 04/29/18 21:53 Dose: 25 mg Sertraline HCl (Zoloft) 100 mg PO DAILY [facility] Last Admin: 04/29/18 09:05 Dose: 100 mg Sucralfate (Carafate Oral Susp) 1 gm PO ACBD [facility] Last Admin: 04/29/18 17:49 Dose: 1 gm - Labs Labs: 04/29/18 10:58 04/29/18 10:58 PT 17.8 SECONDS (9.7-12.2) H 04/29/18 10:58 INR 1.6 04/29/18 10:58 APTT 44 SECONDS (21-34) H 04/29/18 10:58 - Head Exam Head Exam: ATRAUMATIC - Eye Exam Eye Exam: Normal appearance - ENT Exam ENT Exam: Mucous Membranes Dry - Respiratory Exam Respiratory Exam: NORMAL BREATHING PATTERN - Cardiovascular Exam Cardiovascular Exam: +S1, +S2 - GI/Abdominal Exam GI & Abdominal Exam: Normal Bowel Sounds Assessment and Plan (1) Prostate cancer Assessment & Plan: bone and lymph node metastasis noted elevated CEA - GI w/u in progress testosterone at castrate level with worsening disease; 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 Lupron with urology Status: Acute (2) Anemia Assessment & Plan: borderline iron stores with elevated CEA GI w/u in progress on IV iron Status: Acute
--- NOTE | 2018-04-30 00:04 | CP.PCM.PN ---
Subjective - Date & Time of Evaluation Date of Evaluation: 04/28/18 Time of Evaluation: 17:00 - Subjective Subjective: Has some loose stool. Objective - Vital Signs/Intake and Output Vital Signs (last 24 hours): Temp Pulse Resp BP Pulse Ox 98.5 F 73 20 131/75 97 04/29/18 16:00 04/29/18 16:00 04/29/18 16:00 04/29/18 16:00 04/29/18 16:00 Intake and Output: 04/29/18 04/30/18 18:59 06:59 Intake Total 500 Balance 500 - Medications Medications: Current Medications Amlodipine Besylate (Norvasc) 10 mg PO DAILY [facility] Last Admin: 04/29/18 09:01 Dose: 10 mg Aspirin (Aspirin Chewable) 81 mg PO DAILY [facility] Last Admin: 04/29/18 09:01 Dose: 81 mg Bisacodyl (Dulcolax) 10 mg PO Q24H [facility] Last Admin: 04/29/18 12:09 Dose: Not Given Enoxaparin Sodium (Lovenox) 30 mg SC DAILY [facility] Last Admin: 04/29/18 09:01 Dose: 30 mg Fenofibrate (Tricor) 48 mg PO QPM [facility] Last Admin: 04/29/18 17:49 Dose: 48 mg Ferric Sodium Gluconate Complex (Ferrlecit) 125 mg IVPB DAILY [facility] Stop: 05/04/18 10:01 Last Admin: 04/29/18 09:00 Dose: 125 mg Gabapentin (Neurontin) 300 mg PO DAILY [facility] Last Admin: 04/29/18 09:01 Dose: 300 mg Insulin Human Regular (Novolin R) 0 unit SC [facility]; Protocol Last Admin: 04/29/18 23:30 Dose: Not Given Losartan Potassium (Cozaar) 25 mg PO DAILY [facility] Last Admin: 04/29/18 09:01 Dose: 25 mg Ondansetron HCl (Zofran Inj) 4 mg IVP Q6H PRN PRN Reason: Nausea/Vomiting Last Admin: 04/24/18 04:26 Dose: 4 mg Pioglitazone HCl (Actos) 45 mg PO DAILY [facility] Last Admin: 04/29/18 09:05 Dose: 45 mg Quetiapine Fumarate (Seroquel) 25 mg PO HS [facility] Last Admin: 04/29/18 21:53 Dose: 25 mg Sertraline HCl (Zoloft) 100 mg PO DAILY [facility] Last Admin: 04/29/18 09:05 Dose: 100 mg Sucralfate (Carafate Oral Susp) 1 gm PO ACBD [facility] Last Admin: 04/29/18 17:49 Dose: 1 gm - Labs Labs: 04/29/18 10:58 04/29/18 10:58 PT 17.8 SECONDS (9.7-12.2) H 04/29/18 10:58 INR 1.6 04/29/18 10:58 APTT 44 SECONDS (21-34) H 04/29/18 10:58 - Head Exam Head Exam: ATRAUMATIC - Eye Exam Eye Exam: Normal appearance - ENT Exam ENT Exam: Mucous Membranes Dry - Respiratory Exam Respiratory Exam: NORMAL BREATHING PATTERN - Cardiovascular Exam Cardiovascular Exam: +S1, +S2 - GI/Abdominal Exam GI & Abdominal Exam: Normal Bowel Sounds Assessment and Plan (1) Prostate cancer Assessment & Plan: bone and lymph node metastasis noted elevated CEA - GI w/u in progress testosterone at castrate level with worsening disease; 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 Lupron with urology Status: Acute (2) Anemia Assessment & Plan: borderline iron stores with elevated CEA GI w/u in progress on IV iron Status: Acute
[2018-04-30] MEDS: Sucralfate 1 gm/10 ml Oral Susp UD PO SCH (07:35)
[2018-04-30] MEDS: (Novolin R) Insulin Human Regular 100 units/ml vial SC SCH ×2 (08:08→11:41)
[2018-04-30] MEDS: Ferric Sodium Gluconat Complex 62.5 mg/5 ml Vial IVPB SCH (09:36)
[2018-04-30] MEDS: Enoxaparin 30 mg Syringe SC SCH (09:38)
[2018-04-30] MEDS: Bisacodyl 5mg EC Tab PO SCH (09:38)
--- NOTE | 2018-04-30 17:01 | CP.PCM.PN ---
Subjective - Date & Time of Evaluation Date of Evaluation: 04/30/18 Time of Evaluation: 17:01 - Subjective Subjective: alert, awake, follows commands, no acute distress. Objective - Vital Signs/Intake and Output Vital Signs (last 24 hours): Temp Pulse Resp BP Pulse Ox 98 F 86 20 132/80 97 04/30/18 07:00 04/30/18 07:00 04/30/18 07:00 04/30/18 07:00 04/30/18 07:00 Intake and Output: 04/30/18 04/30/18 06:59 18:59 Intake Total 200 Output Total 300 Balance -100 - Medications Medications: Current Medications Amlodipine Besylate (Norvasc) 10 mg PO DAILY [facility] Last Admin: 04/30/18 09:36 Dose: 10 mg Aspirin (Aspirin Chewable) 81 mg PO DAILY [facility] Last Admin: 04/30/18 09:38 Dose: Not Given Bisacodyl (Dulcolax) 10 mg PO Q24H [facility] Last Admin: 04/30/18 09:38 Dose: Not Given Enoxaparin Sodium (Lovenox) 30 mg SC DAILY [facility] Last Admin: 04/30/18 09:38 Dose: Not Given Fenofibrate (Tricor) 48 mg PO QPM [facility] Last Admin: 04/29/18 17:49 Dose: 48 mg Ferric Sodium Gluconate Complex (Ferrlecit) 125 mg IVPB DAILY [facility] Stop: 05/04/18 10:01 Last Admin: 04/30/18 09:36 Dose: 125 mg Gabapentin (Neurontin) 300 mg PO DAILY [facility] Last Admin: 04/30/18 09:36 Dose: 300 mg Insulin Human Regular (Novolin R) 0 unit SC [facility]; Protocol Last Admin: 04/30/18 11:41 Dose: 3 units Losartan Potassium (Cozaar) 25 mg PO DAILY [facility] Last Admin: 04/30/18 09:36 Dose: 25 mg Ondansetron HCl (Zofran Inj) 4 mg IVP Q6H PRN PRN Reason: Nausea/Vomiting Last Admin: 04/24/18 04:26 Dose: 4 mg Pioglitazone HCl (Actos) 45 mg PO DAILY [facility] Last Admin: 04/30/18 09:38 Dose: 45 mg Quetiapine Fumarate (Seroquel) 25 mg PO HS [facility] Last Admin: 04/29/18 21:53 Dose: 25 mg Sertraline HCl (Zoloft) 100 mg PO DAILY [facility] Last Admin: 04/30/18 11:31 Dose: 100 mg Sucralfate (Carafate Oral Susp) 1 gm PO ACBD [facility] Last Admin: 04/30/18 07:35 Dose: 1 gm - Labs Labs: 04/29/18 10:58 04/29/18 10:58 PT 17.8 SECONDS (9.7-12.2) H 04/29/18 10:58 INR 1.6 04/29/18 10:58 APTT 44 SECONDS (21-34) H 04/29/18 10:58 Assessment and Plan - Assessment and Plan (Free Text) Assessment: 87 year old male with metastatic cancer, admitted with abdominal pain seen and examined. Awake, alert, follows commands. Denies acute pain or distress, tolerating liquid and bland diet. Discussed with DR Bach, plan to discharge to rehab today, authorizations available to go to [facility].
[2018-04-30 17:28] VITALS: BP 129/69; PULSE 70; TEMP 97.9; O2SAT 96
--- NOTE | 2018-04-30 19:53 | PCM.URO ---
Urology Progress Note - General General: Tolerating Diet - Subjective Abdominal Pain: Yes (lower abd) Flank Pain: No Nausea: No Vomiting: No Voiding Well: Yes Dysuria: No Hematuria: No Urinary Urgency: No Good Stream: Yes Stone Passed: No Dsypnea: No Chest Pain: No Fever & Chills: No - Objective Lab Results Last 24 Hours: Laboratory Results - last 24 hr 04/29/18 04/30/18 04/30/18 21:21 07:15 11:09 POC Glucose (mg/dL) 204 H 206 H 243 H 04/30/18 16:35 POC Glucose (mg/dL) 271 H Intake & Output: Intake & Output 04/30/18 04/30/18 05/01/18 06:59 18:59 06:59 Intake Total 200 Output Total 300 Balance -100 Intake: Oral 200 Output: Urine 300 Urine, Voided 300 Other: # Voids Urine, Voided 1 Vital Signs: Vital Signs - 24 hr 04/30/18 04/30/18 04/30/18 00:00 07:00 16:00 Temperature 99.4 F 98 F 97.9 F Pulse Rate 70 86 70 Respiratory 20 20 20 Rate Blood Pressure 110/61 132/80 129/69 O2 Sat by Pulse 94 L 97 96 Oximetry - Physical Exam Abdominal Exam: Soft, Non-Distended (mild sp tenderness). absent: Non-Tender Back: No CVA Tenderness Genitalia: Without Inflammation Urine Color: Clear, Yellow - Plan Additional Information: IMP: metastatic, symptomatic, castrate resistant Prostate Ca. P/rec: further hormonal therapy to follow. Discussed w pt and nursing staff. Will discuss with Oncologist and w pt's family. YS - Date & Time of Note Date: 04/30/18 Time: 09:40
--- NOTE | 2018-04-30 23:01 | CP.PCM.DIS ---
Provider - Provider Date of Admission: 04/23/18 14:23 Attending physician: Cliff Bach MD Consults: 04/22/18 14:15 Physician Consult Routine Comment: Consulting Provider: Juan Carlos Jones Consulting Physician: Juan Carlos Jones Reason for Consult: abdominal mets 04/22/18 19:30 Physician Consult Routine Comment: Consulting Provider: Elroy Loza Consulting Physician: Elroy Loza Reason for Consult: METS 04/23/18 17:44 Cardiology Consult Routine Comment: Consulting Provider: Philip Yoo Consulting Physician: Philip Yoo Reason for Consult: hypetrension 04/24/18 08:06 Urology Consult Routine Comment: Consulting Provider: Bere Hicks Consulting Physician: Bere Hicks Reason for Consult: ca prostate 04/26/18 10:34 Case Management Referral Routine Comment: Physician Instructions: Reason For Exam: please evaluate for ESTIVEN Reason for Referral: Discharge Planning Time Spent in preparation of Discharge (in minutes): 30 Hospital Course - Lab Results Lab Results: Micro Results 04/22/18 07:31 Urine Random Urine Culture - Final No Growth (<1,000 CFU/ML) Most Recent Lab Values WBC 4.7 K/uL (4.8-10.8) L 04/29/18 10:58 RBC 4.12 Mil/uL (4.40-5.90) L 04/29/18 10:58 Hgb 10.4 g/dL (12.0-18.0) L 04/29/18 10:58 Hct 32.6 % (35.0-51.0) L 04/29/18 10:58 MCV 79.2 fL (80.0-94.0) L 04/29/18 10:58 MCH 25.2 pg (27.0-31.0) L 04/29/18 10:58 MCHC 31.8 g/dL (33.0-37.0) L 04/29/18 10:58 RDW 23.2 % (11.5-14.5) H 04/29/18 10:58 Plt Count 468 K/uL (130-400) H 04/29/18 10:58 MPV 7.5 fL (7.2-11.7) 04/29/18 10:58 Neut % (Auto) 74.0 % (50.0-75.0) 04/29/18 10:58 Lymph % (Auto) 14.0 % (20.0-40.0) L 04/29/18 10:58 Drew % (Auto) 6.0 % (0.0-10.0) 04/29/18 10:58 Eos % (Auto) 6.0 % (0.0-4.0) H 04/29/18 10:58 Baso % (Auto) 0.0 % (0.0-2.0) 04/29/18 10:58 Neut # (Auto) 3.5 K/uL (1.8-7.0) 04/29/18 10:58 Lymph # (Auto) 0.6 K/uL (1.0-4.3) L 04/29/18 10:58 Drew # (Auto) 0.3 K/uL (0.0-0.8) 04/29/18 10:58 Eos # (Auto) 0.3 K/uL (0.0-0.7) 04/29/18 10:58 Baso # (Auto) 0.0 K/uL (0.0-0.2) 04/29/18 10:58 Retic Count 1.6 % (0.5-1.5) H 04/24/18 08:20 PT 17.8 SECONDS (9.7-12.2) H 04/29/18 10:58 INR 1.6 04/29/18 10:58 APTT 44 SECONDS (21-34) H 04/29/18 10:58 Sodium 135 mmol/L (132-148) 04/29/18 10:58 Potassium 4.0 mmol/L (3.6-5.2) 04/29/18 10:58 Chloride 102 mmol/L (98-107) 04/29/18 10:58 Carbon Dioxide 26 mmol/L (22-30) 04/29/18 10:58 Anion Gap 12 (10-20) 04/29/18 10:58 BUN 21 mg/dL (9-20) H 04/29/18 10:58 Creatinine 1.3 mg/dL (0.8-1.5) 04/29/18 10:58 Est GFR ( Amer) > 60 04/29/18 10:58 Est GFR (Non-Af Amer) 52 04/29/18 10:58 POC Glucose (mg/dL) 271 mg/dL (65-110) H 04/30/18 16:35 Random Glucose 232 mg/dL (75-110) H 04/29/18 10:58 Calcium 10.2 mg/dl (8.6-10.4) 04/29/18 10:58 Phosphorus 2.3 mg/dL (2.5-4.5) L 04/25/18 11:53 Magnesium 2.1 mg/dL (1.6-2.3) 04/27/18 07:11 Ferritin 47.1 ng/mL 04/24/18 08:20 Total Bilirubin 2.1 mg/dL (0.2-1.3) H 04/29/18 10:58 AST 102 U/L (17-59) H 04/29/18 10:58 ALT 74 U/L (21-72) H D 04/29/18 10:58 Alkaline Phosphatase 715 U/L (38-126) H 04/29/18 10:58 Total Protein 7.6 g/dL (6.3-8.3) 04/29/18 10:58 Albumin 3.8 g/dL (3.5-5.0) 04/29/18 10:58 Globulin 3.8 gm/dL (2.2-3.9) 04/29/18 10:58 Albumin/Globulin Ratio 1.0 (1.0-2.1) 04/29/18 10:58 Lipase 159 U/L (23-300) 04/22/18 07:36 Alpha Fetoprotein 2.3 ng/mL (0.0-7.5) 04/23/18 14:52 Carcinoembryonic Ag 8.6 ng/mL (0-3.0) H 04/29/18 10:58 CA 19-9 Antigen 150 U/mL (0-37) H 04/23/18 14:52 Prostate Specific Ag 318 ng/mL (0.00-4.0) H 04/25/18 06:24 Vitamin B12 > 1000 pg/mL (239-931) H 04/24/18 08:20 Folate > 20.0 ng/mL 04/24/18 08:20 Testosterone Level 11.4 ng/mL 04/25/18 06:24 Urine Color Naya (YELLOW) 04/22/18 07:31 Urine Clarity Clear (Clear) 04/22/18 07:31 Urine pH 5.0 (5.0-8.0) 04/22/18 07:31 Ur Specific [place] 1.019 (1.003-1.030) 04/22/18 07:31 Urine Protein 1+ mg/dL (NEGATIVE) H 04/22/18 07:31 Urine Glucose (UA) Normal mg/dL (Normal) 04/22/18 07:31 Urine Ketones Negative mg/dL (NEGATIVE) 04/22/18 07:31 Urine Blood Negative (NEGATIVE) 04/22/18 07:31 Urine Nitrate Negative (NEGATIVE) 04/22/18 07:31 Urine Bilirubin Negative (NEGATIVE) 04/22/18 07:31 Urine Urobilinogen Normal mg/dL (0.2-1.0) 04/22/18 07:31 Ur Leukocyte Esterase Neg Shaw/uL (Negative) 04/22/18 07:31 Urine WBC (Auto) 1 /hpf (0-5) 04/22/18 07:31 Urine RBC (Auto) < 1 /hpf (0-3) 04/22/18 07:31 Hyaline Casts 6-10 /lpf (0-2) H 04/22/18 07:31 Granular Casts (Auto) 1 /lpf (0-1) 04/22/18 07:31 Stool Occult Blood Positive (NEGATIVE) H 04/25/18 12:52 C. difficile Ag & Toxin Negative (NEGATIVE) 04/27/18 18:25 Hepatitis A IgM Ab Negative (NEGATIVE) 04/23/18 14:52 Hep Bs Antigen Negative (NEGATIVE) 04/23/18 14:52 Hep B Core IgM Ab Negative (NEGATIVE) 04/23/18 14:52 Hepatitis C Antibody Negative (NEGATIVE) 04/23/18 14:52 Discharge Exam - Head Exam Head Exam: ATRAUMATIC Discharge Plan - Follow Up Plan Condition: STABLE Disposition: REHAB FACILITY/REHAB UNIT Instructions: Acute Abdomen (Belly Pain), Adult (DC), Anemia of Chronic Disease (DC)
--- NOTE | 2018-05-07 08:36 | CON ---
DATE: 04/22/[address] Mcpherson to Dr. Cliff Bach. I was called for GI consultation by the admitting MD. The patient seen and fully examined on 04/22/2018 as requested by the admitting MD. The entire chart is reviewed including, but not limited to, the most recent lab and radiology study results, current and the previous medication list, current and the previous medical events, allergy to medication list as well as all the available current and the previous medical records. Case discussed with the admitting medical team as well as Dr. Bach at the time of my GI consultation on 04/22/2018. A short handwritten consultation sheet left in the chart at that time. HISTORY OF PRESENT ILLNESS: This is a an 87-year-old male who was admitted to the hospital through the emergency room due to burning sensation associated with abdominal pain with nausea and dyspepsia with recurrent episodes of vomiting for the last four to five days prior to admission with very poor oral intake due to above, but no reported chest pain, palpitation, significant shortness of breath, chills, or fever. PAST MEDICAL HISTORY: Including but not limited to: 1. COPD. 2. Hypertension. 3. Hyperlipidemia. 4. Known history of osteoarthritis. 5. Renal stone with chronic renal insufficiency. 6. 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 7. History of status post cholecystectomy. FAMILY HISTORY: Unknown. SOCIAL HISTORY: Former smoker, but no recent history of alcohol intake. CURRENT MEDICATION: Post admission medication lists were reviewed. ALLERGIES: TO MEDICATIONS UNKNOWN. LABORATORY DATA: Initial blood workup at the time of the admission showed hemoglobin of 10.4, hematocrit 33.6, BUN 22 but normal creatinine with blood glucose level 186. AST 232, ALT 226, alkaline phosphatase 686 with normal total protein and albumin, but total bilirubin elevated to 1.5. 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 PHYSICAL EXAMINATION: GENERAL: An 87-year-old male. VITAL SIGNS: Afebrile with pulse of 72, respiratory rate 16 to 18, blood pressure 150/78. HEENT: Pale dry oral mucous membrane. Mild icteric sclerae. LUNGS: Few scattered crepitation with decreased air entry at bases. HEART: Positive S1 and S2. ABDOMEN: Soft with mild generalized tenderness. No mass or organomegaly. No rebound tenderness or guarding. EXTREMITIES: Without significant clubbing, edema, or cyanosis. NEUROLOGIC: No reported new neurological deficits, sensory or motor. LABORATORY DATA: On record it was reported in the CAT scan that there is enlarged prostate and the possibility of prostatic CA with mets was raised strongly. IMPRESSION: 1. Anemia. 2. Abnormal CAT scan of the abdomen and pelvis to rule out duodenal lesion versus recurrent peptic ulcer disease. 3. Multiple past medical history as mentioned above. 4 Rule out occult gastrointestinal malignancy. 5. Abnormal liver function test that could be secondary to above versus a new episode of acute hepatitis, viral versus chemical. SUGGESTIONS: 1. Agree with your plan. 2. Endoscopic evaluation of the GI tract. Cancer markers including a PSA, CEA, alpha-fetoprotein, and CA 19-9. 3. Zofran IV. Proton pump inhibitors IV. Endoscopic evaluation, especially of the upper GI tract. 4. Oncology/Hematology consult. 5. Further recommendation to follow post endoscopy. Thank you for letting me participate in your patient's case management. Juan Carlos Mcpherson MD
== END 2018-04-30 17:42 | DRG 378 ==
LOC: C.ER 06:52 → C.9E 10:24 → C.3T 10:51 → OBSVTOIN 04-23 14:23 → C.3T 04-26 19:18
PROVIDERS: ADMIT Internal Medicine; ATTEND Internal Medicine
PROC: 0DB68ZX Excision of Stomach, Via Natural or Artificial Opening Endoscopic, Diagnostic (ICD-10-PCS; principal; 2018-04-24 13:45)
DX: K29.71 Gastritis, unspecified, with bleeding (principal); C77.9 Secondary and unspecified malignant neoplasm of lymph node, unspecified; C79.51 Secondary malignant neoplasm of bone; R17 Unspecified jaundice; I69.251 Hemiplegia and hemiparesis following other nontraumatic intracranial hemorrhage affecting right dominant side; D68.9 Coagulation defect, unspecified; C61 Malignant neoplasm of prostate; K57.91 Diverticulosis of intestine, part unspecified, without perforation or abscess with bleeding; K25.9 Gastric ulcer, unspecified as acute or chronic, without hemorrhage or perforation; B96.81 Helicobacter pylori [H. pylori] as the cause of diseases classified elsewhere; D50.9 Iron deficiency anemia, unspecified; E78.5 Hyperlipidemia, unspecified; I12.9 Hypertensive chronic kidney disease with stage 1 through stage 4 chronic kidney disease, or unspecified chronic kidney disease; I25.10 Atherosclerotic heart disease of native coronary artery without angina pectoris; J44.9 Chronic obstructive pulmonary disease, unspecified; K59.00 Constipation, unspecified; N18.9 Chronic kidney disease, unspecified; Z87.891 Personal history of nicotine dependence; R29.810 Facial weakness; F03.90 Unspecified dementia, unspecified severity, without behavioral disturbance, psychotic disturbance, mood disturbance, and anxiety; E11.22 Type 2 diabetes mellitus with diabetic chronic kidney disease; R10.13 Epigastric pain